=== PATIENT | male | born 1970 | race Caucasian/White ===

== ENCOUNTER 2023-10-10 10:00 | Outpatient (AMB) | payer OTHER, SELFPAY ==
--- NOTE | 2023-10-10 10:01 | MHC.OFFVIS ---
Intake Vital Signs 10/10/23 10:03 Height 5 ft 9 in Weight 215 lb BMI 31.7 BP 136/88 Blood Pressure Location Rt brachial Position Sitting Pulse 69 Pulse Source Pulse Oximeter Pulse Oximetry (%) 97 Intake Visit Reasons: ENP-Bilateral hand numbness-CONF Intake Note: patient here for numbness on hands and legs,patient also having weird sensation going through body Allergies No Known Allergies Allergy (Verified 10/10/23 10:04) Medication List - Last Reconciled 10/10/23 by TJ Harrington atorvastatin 40 mg PO DAILY empagliflozin (Jardiance) 25 mg PO DAILY glipizide 5 mg PO BID lisinopril-hydrochlorothiazide 20-25 mg 1 tab PO DAILY pioglitazone 30 mg PO DAILY HPI HPI Comments History of Present Illness Details Right-handed 53-yr-old male presents for neurological evaluation of: Bilateral hand numbness. Pt reports he started having numbness, tingling, cramps in distal bilateral 1st and 2nd-4th fingers, and bilateral toes 1st-5th. This is worse during the day when he is using his hands. 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 This started a few months ago. He states his hands are weaker. He can picker tender a cup or even something that weighs more like a gallon of milk, but sometimes he just drops things w/o notice. Patient endorses: Diagnosed w/ diabetes 2 yrs ago- states not well-controlled. Last HgA1C 8%. Has routine eye exams- was given glasses for reading. Arthritis. Non-radiating neck pain/tightness Non-radiating chronic low back pain d/t disc dz- f/b PS&S. Headaches- pressure pain in the occipital region a/w nausea, photophobia/phonophobia, vertigo, can last all day w/o Tx, once a week, uses Tylenol 4 tabs w/ effect. H/o prolonged vertigo- had vestibular tx which helped. Sleep difficulties: snoring, unrefreshing sleep, fatigue. Now in the last few weeks, he has started having a creepy crawling sensation over his entire body, when laying down in bed, or even now when sitting in the chair. [facility] Medical History (Updated 10/10/23 @ 18:56 by Lilli Patel, AURICULAR DETOXIFICATION SPECIALIST) Vertigo Mixed hyperlipidemia Family History (Updated 10/10/23 @ 10:05 by CASSY Voss) Mother Diabetes Heart disease Brother Diabetes Heart disease Social History (Updated 10/10/23 @ 10:05 by CASSY Voss) Alcohol intake: current Comment: socially Patient Tobacco Use Status: Never used Tobacco Review of Systems Const All systems reviewed & are unremarkable except as noted in HPI and below Physical Exam Vital Signs: Last Vital Signs Pulse 69 10/10/23 10:03 BP 136/88 10/10/23 10:03 Pulse Ox 97 10/10/23 10:03 BMI result Body Mass Index 31.7 Const General: cooperative and no acute distress Orientation/consciousness: patient oriented x3 HEENT Head: Yes normocephalic Resp Effort & Inspection: normal respiratory effort and able to speak in complete sentences Neuro Other: Bilateral distal fingertip- vibration, sharp sensation- perceived but altered sensation Bilateral distal fingertip- vibration, sharp sensation- perceived but altered sensation. Position sensation- intact. PP 2+. No edemea, no discoloration. MS 5/5 throughout, w/ exception of Bilateral hand grasps- decreased, symmetric. General: patient oriented x3, CN's II-XI intact bilaterally (w/ exception of left facial asymmetry, left decreased palpebral fissure) and deep tendon reflexes 2+ bilaterally Gait exam (Neuro): Normal gait present Motor exam (neuro): 5/5 motor strength present throughout Psych Appearance: grossly normal Mental Status: mental status grossly normal Speech and movement: Normal speech and movement present Affect: normal affect Attitude: cooperative Thought process: Normal thought process present Thought content: Normal thought content present Insight: Good insight present (Psych) Assessment & Plan Assessment & Plan (1) Paresthesia: Code(s): R20.2 - Paresthesia of skin (2) Snoring: Code(s): R06.83 - Snoring (3) Fatigue: Code(s): R53.83 - Other fatigue (4) Sleep difficulties: Code(s): G47.9 - Sleep disorder, unspecified (5) Migraine without aura: Code(s): G43.009 - Migraine without aura, not intractable, without status migrainosus (6) Muscle cramps: Code(s): R25.2 - Cramp and spasm Plan Patient advised to undergo: BUE and BLE EMG/NCS. Check labs for common etiologies of paresthesias, cramps, creepy crawly sensation. Home sleep study to assess for sleep apnea, which if present may be contributing to poorly controlled diabetes. Upon review of above, we will consider nutritional supplement and possibly gabapentin. Monitor migraine. Patient seen in collaboration with Dr. Edmond Orders: Orders Vitamin B12 and Folate Today E11.9 - Type 2 diabetes mellitus without complications, G43.009 - Migraine without aura, not intractable, without status migrainosus, I10 - Essential (primary) hypertension, R20.2 - Paresthesia of skin, R25.2 - Cramp and spasm IRON PROFILE Today E11.9 - Type 2 diabetes mellitus without complications, G43.009 - Migraine without aura, not intractable, without status migrainosus, I10 - Essential (primary) hypertension, R20.2 - Paresthesia of skin, R25.2 - Cramp and spasm Comprehensive Met. Panel Today E11.9 - Type 2 diabetes mellitus without complications, G43.009 - Migraine without aura, not intractable, without status migrainosus, I10 - Essential (primary) hypertension, R20.2 - Paresthesia of skin, R25.2 - Cramp and spasm Creatine Kinase Total Today E11.9 - Type 2 diabetes mellitus without complications, G43.009 - Migraine without aura, not intractable, without status migrainosus, I10 - Essential (primary) hypertension, R20.2 - Paresthesia of skin, R25.2 - Cramp and spasm Magnesium Today E11.9 - Type 2 diabetes mellitus without complications, G43.009 - Migraine without aura, not intractable, without status migrainosus, I10 - Essential (primary) hypertension, R20.2 - Paresthesia of skin, R25.2 - Cramp and spasm NE electromyogram (EMG) Today E11.9 - Type 2 diabetes mellitus without complications, I10 - Essential (primary) hypertension, R20.2 - Paresthesia of skin, R25.2 - Cramp and spasm NE nerve conduction velocity Today E11.9 - Type 2 diabetes mellitus without complications, I10 - Essential (primary) hypertension, R20.2 - Paresthesia of skin, R25.2 - Cramp and spasm JORGE Reflex Titer and Pattern Today E11.9 - Type 2 diabetes mellitus without complications, G43.009 - Migraine without aura, not intractable, without status migrainosus, I10 - Essential (primary) hypertension, R20.2 - Paresthesia of skin, R25.2 - Cramp and spasm Ferritin Today E11.9 - Type 2 diabetes mellitus without complications, G43.009 - Migraine without aura, not intractable, without status migrainosus, I10 - Essential (primary) hypertension, R20.2 - Paresthesia of skin, R25.2 - Cramp and spasm TSH reflex Free T4 Today E11.9 - Type 2 diabetes mellitus without complications, G43.009 - Migraine without aura, not intractable, without status migrainosus, I10 - Essential (primary) hypertension, R20.2 - Paresthesia of skin, R25.2 - Cramp and spasm Hemoglobin A1c Today E11.9 - Type 2 diabetes mellitus without complications, G43.009 - Migraine without aura, not intractable, without status migrainosus, I10 - Essential (primary) hypertension, R20.2 - Paresthesia of skin, R25.2 - Cramp and spasm Complete Blood Count Auto Diff Today E11.9 - Type 2 diabetes mellitus without complications, G43.009 - Migraine without aura, not intractable, without status migrainosus, I10 - Essential (primary) hypertension, R20.2 - Paresthesia of skin, R25.2 - Cramp and spasm CRP High Sensitivity Today E11.9 - Type 2 diabetes mellitus without complications, G43.009 - Migraine without aura, not intractable, without status migrainosus, I10 - Essential (primary) hypertension, R20.2 - Paresthesia of skin, R25.2 - Cramp and spasm Rheumatoid Factor Today E11.9 - Type 2 diabetes mellitus without complications, G43.009 - Migraine without aura, not intractable, without status migrainosus, I10 - Essential (primary) hypertension, R20.2 - Paresthesia of skin, R25.2 - Cramp and spasm RT home sleep study Today G47.9 - Sleep disorder, unspecified, R06.83 - Snoring, R53.83 - Other fatigue Coding Level of Care Code New Pt Level 4 (16060) Diagnoses Paresthesia R20.2 Snoring R06.83 Fatigue R53.83 Sleep difficulties G47.9 Migraine without aura G43.009 Muscle cramps R25.2
[2023-10-10 10:03] VITALS: BP 136/88; PULSE 69; O2SAT 97; BMI 31.7
== END 2023-10-10 11:15 | disposition home or self-care (01) ==
PROVIDERS: PCP Physician Assistant Medical; Visit Provider Nurse Practitioner Family
DX: R20.2 Paresthesia of skin (principal); R06.83 Snoring; R53.83 Other fatigue; G47.9 Sleep disorder, unspecified; G43.009 Migraine without aura, not intractable, without status migrainosus; R25.2 Cramp and spasm
CPT/HCPCS: 99204

== ENCOUNTER → 2023-10-10 10:00 | Outpatient (BNVA) | payer OTHER, SELFPAY | PROVIDERS: PCP Physician Assistant Medical; Visit Provider Nurse Practitioner Family | DX: R20.2 Paresthesia of skin (principal); R06.83 Snoring; R53.83 Other fatigue; R25.2 Cramp and spasm; G47.9 Sleep disorder, unspecified; G43.009 Migraine without aura, not intractable, without status migrainosus | CPT/HCPCS: 99202 ==

== ENCOUNTER 2023-10-10 11:28 | Outpatient (REF) | payer OTHER, SELFPAY ==
[2023-10-10 17:37] LABS: MANUAL DIFF FLAG NO
[2023-10-10 18:06] LABS: Hemoglobin 17.7 g/dl (14.0-18.0); Imm Gran Abs Auto 0.01 X10*3/uL (0.00-0.03); Imm Gran Pct Auto 0.1 % (0.0-0.4); Mean Corpuscular HGB Conc 34.6 g/dl (31.0-36.0); SCAN SMEAR FLAG 1
[2023-10-10 18:08] LABS: Basophils Absolute Auto 0.1 X10*3/uL (0.0-0.2); Basophils Percent Auto 0.8 % (0-2); Eosinophils Absolute Auto 0.1 X10*3/uL (0.0-0.4); Eosinophils Percent Auto 1.1 % (0-4); Hematocrit 51.2 % (42.0-52.0); Lymphocytes Percent Auto 26.1 % (20-40); Mean Corpuscular Hemoglobin 28.5 pg (27.0-33.0); Mean Corpuscular Volume 82.4 fL (80.0-98.0); Monocytes Absolute Auto 0.4 X10*3/uL (0.1-1.2); Monocytes Percent Auto 5.3 % (2-11); Neutrophils Absolute Auto 5.1 x10*3/uL (2.0-8.3); Neutrophils Percent Auto 66.6 % (45-73); Platelet Count 135 X10*3/uL (160-400); Red Blood Count 6.21 X10*6/uL (4.60-5.80); Red Cell Distribution Width 16.6 % (11.0-16.0); White Blood Count 7.6 X10*3/uL (4.8-10.8)
[2023-10-10 18:12] LABS: PLT ABN DIST 1
[2023-10-10 18:13] LABS: Estimated Average Glucose 192 mg/dL; Hemoglobin A1c % 8.3 % (<6.0)
[2023-10-10 18:30] LABS: Rheumatoid Factor < 13.0 IU/mL (<15.0)
[2023-10-10 18:59] LABS: Folate 11.4 ng/mL (> or = 4.0); Vitamin B12 442 pg/mL (200-900)
[2023-10-10 19:14] LABS: Alanine Aminotransferase 36 U/L (0-40); Albumin Level 4.8 g/dL (3.5-5.0); Alkaline Phosphatase 87 U/L (39-117); Anion Gap 12 (12-20); Aspartate Amino Transferase 25 U/L (5-37); Bilirubin Total 1.2 mg/dL (0.0-1.0); Blood Urea Nitrogen 15 mg/dL (9-16); Calcium 9.8 mg/dL (8.4-10.2); Carbon Dioxide 27 mmol/L (22-29); Chloride 109 mmol/L (96-108); Estimated Glomerular Filt Rate > 60; Glucose Random 180 mg/dL (60-115); Iron 77 mcg/dL (45-160); Magnesium 2.3 mg/dL (1.6-2.6); Percent Iron Saturation 26 % (15-50); Potassium 4.6 mmol/L (3.3-5.1); Sodium 143 mmol/L (135-145); Total Iron Binding Capacity 300 mcg/dL (228-428); Unsaturated Iron Binding 223 ug/dL
[2023-10-10 19:28] LABS: Ferritin 175 ng/mL (20-250); TSH reflex Free T4 0.85 uIU/mL (0.32-4.0)
[2023-10-12 13:13] LABS: CRP High Sensitivity 3.4 mg/L
[2023-10-16 12:53] LABS: Anti Nuclear Antibody Screen NEGATIVE (NEGATIVE)
== END 2023-10-10 11:29 | disposition home or self-care (01) ==
LOC: HO.HKASLDS 11:28
PROVIDERS: Visit Provider Nurse Practitioner Family
DX: R20.2 Paresthesia of skin (principal); I10 Essential (primary) hypertension; E11.9 Type 2 diabetes mellitus without complications; R25.2 Cramp and spasm; G43.009 Migraine without aura, not intractable, without status migrainosus
CPT/HCPCS: 36415; 80053; 82550; 82607; 82728; 82746; 83036; 83540; 83735; 84443; 85025; 86038; 86141; 86431

== ENCOUNTER 2023-10-25 15:32 | Outpatient (REF) | payer OTHER, SELFPAY ==
--- NOTE | 2023-10-25 15:37 | EMG_ITS ---
Chief complaint: 2-3 months of bilateral finger numbness, numbness in toe pads. Some trapezius pain. Reason for referral: Evaluate for neuropathy Referred by: Lilli Patel NP Procedure done: Bilateral upper extremities, bilateral lower extremities NCS/EMG Precautions and/or limitations: None The limb temperature was monitored continuously and remained between 32-36 degrees C during the performance of the NCS. Nerve Conduction Studies Anti Sensory Summary Table ?Stim Site NR Onset (ms) Norm Onset (ms) Peak (ms) Norm Peak (ms) O-P Amp (?V) Norm O-P Amp Site1 Site2 Delta-0 (ms) Dist (cm) Romario (m/s) Norm Romario (m/s) Left Median Anti Sensory (2nd Digit) Wrist ? 3.0 3.9 <3.6 28.4 >10 Wrist 2nd Digit 3.0 14.0 47 Right Median Anti Sensory (2nd Digit) Wrist ? 3.2 4.2 <3.6 21.3 >10 Wrist 2nd Digit 3.2 14.0 44 Left Sural Anti Sensory (Lat Mall) Calf NR <4.0 >5.0 Calf Lat Mall 14.0 Right Sural Anti Sensory (Lat Mall) Calf ? 1.2 2.2 <4.0 3.6 >5.0 Calf Lat Mall 1.2 14.0 117 Left Ulnar Anti Sensory (5th Digit) Wrist ? 2.6 3.3 <3.7 33.3 >15.0 Wrist 5th Digit 2.6 14.0 54 Right Ulnar Anti Sensory (5th Digit) Wrist ? 2.6 3.3 <3.7 15.1 >15.0 Wrist 5th Digit 2.6 14.0 54 Motor Summary Table ?Stim Site NR Onset (ms) Norm Onset (ms) O-P Amp (mV) Norm O-P Amp iAmp (mV) Amp (1st) (%) Site1 Site2 Delta-0 (ms) Dist (cm) Romario (m/s) Norm Romario (m/s) Left Median Motor (Abd Poll Brev) Wrist ? 5.4 <3.9 4.7 >4.5 5.6 100.0 Elbow Wrist 4.7 23.5 50 >45 Elbow ? 10.1 3.8 4.6 80.9 Right Median Motor (Abd Poll Brev) Wrist ? 4.8 <3.9 11.8 >4.5 13.8 100.0 Elbow Wrist 4.8 23.0 48 >45 Elbow ? 9.6 10.0 11.8 84.7 Right Peroneal Motor (Ext Dig Brev) Ankle ? 3.7 <4.0 6.6 >2.5 8.9 100.0 Ankle Ext Dig Brev 3.7 0.0 B Fib ? 11.6 7.4 9.5 112.1 B Fib Ankle 7.9 34.0 43 >40 Poplt ? 12.8 7.4 9.5 112.1 Poplt B Fib 1.2 6.0 50 >40 Left Tibial Motor (Abd Mejia Brev) Ankle ? 3.9 <5 14.8 >2.5 19.6 100.0 Ankle Abd Mejia Brev 3.9 0.0 Knee ? 14.6 7.5 9.5 50.7 Knee Ankle 10.7 43.0 40 >40 Right Tibial Motor (Abd Mejia Brev) Ankle ? 3.4 <5 14.2 >2.5 20.5 100.0 Ankle Abd Mejia Brev 3.4 0.0 Knee ? 12.9 11.2 16.3 78.9 Knee Ankle 9.5 43.0 45 >40 Left Ulnar Motor (Abd Dig Minimi) Wrist ? 2.9 <3.0 7.9 >5 9.3 100.0 B Elbow Wrist 4.4 23.5 53 >45 B Elbow ? 7.3 7.6 9.2 96.2 A Elbow B Elbow 2.0 10.0 50 >45 A Elbow ? 9.3 7.9 9.7 100.0 Right Ulnar Motor (Abd Dig Minimi) Wrist ? 2.8 <3.0 9.6 >5 13.8 100.0 B Elbow Wrist 4.9 22.0 45 >45 B Elbow ? 7.7 9.6 13.2 100.0 A Elbow B Elbow 1.8 10.0 56 >45 A Elbow ? 9.5 9.3 13.0 96.9 EMG ?Side Muscle Nerve Root Ins Act Fibs Psw Amp Dur Poly Recrt Int Pat Comment Right 1stDorInt Ulnar C8-T1 Nml Nml Nml Nml Nml 0 Nml Complete Right FlexCarRad Median C6-7 Nml Nml Nml Nml Nml 0 Nml Complete Right Biceps Musculocut C5-6 Nml Nml Nml Nml Nml 0 Nml Complete Right Triceps Radial C6-7-8 Nml Nml Nml Nml Nml 0 Nml Complete Right Deltoid Axillary C5-6 Nml Nml Nml Nml Nml 0 Nml Complete Left 1stDorInt Ulnar C8-T1 Nml Nml Nml Nml Nml 0 Nml Complete Left FlexCarRad Median C6-7 Nml Nml Nml Nml Nml 0 Nml Complete Left Biceps Musculocut C5-6 Nml Nml Nml Nml Nml 0 Nml Complete Left Triceps Radial C6-7-8 Nml Nml Nml Nml Nml 0 Nml Complete Left Deltoid Axillary C5-6 Nml Nml Nml Nml Nml 0 Nml Complete Right AbdHallucis MedPlantar S1-2 Nml Nml Nml Nml Nml 0 Nml Complete Right AntTibialis Dp Br Peron L4-5 Nml Nml Nml Nml Nml 0 Nml Complete Right PostTibialis Tibial L5, S1 Nml Nml Nml Nml Nml 0 Nml Complete Right MedGastroc Tibial S1-2 Nml Nml Nml Nml Nml 0 Nml Complete Right VastusMed Femoral L2-4 Nml Nml Nml Nml Nml 0 Nml Complete Left AbdHallucis MedPlantar S1-2 Nml Nml Nml Nml Nml 0 Nml Complete Left AntTibialis Dp Br Peron L4-5 Nml Nml Nml Nml Nml 0 Nml Complete Left PostTibialis Tibial L5, S1 Nml Nml Nml Nml Nml 0 Nml Complete Left MedGastroc Tibial S1-2 Nml Nml Nml Nml Nml 0 Nml Complete Left VastusMed Femoral L2-4 Nml Nml Nml Nml Nml 0 Nml Complete FINDINGS: Bilateral median motor nerves showed prolonged distal latency, normal amplitude and normal conduction velocity. Bilateral median sensory nerves prolonged peak latency. Right sural nerve no response. Left sural nerve showed very small amplitude but normal peak latencies. All other nerves tested were within normal. Concentric needle EMG was performed in selected muscles of the bilateral upper extremities and lower extremities. Study did not reveal signs of electric abnormalities as shown in the table below. IMPRESSION: 1. This is an abnormal study. 2. There is electrodiagnostic evidence for bilateral moderate-severe median neuropathy at the wrist, consistent with carpal tunnel syndrome. 3. There is no electrodiagnostic evidence for ulnar neuropathy, brachial plexopathy, or cervical radiculopathy. 4. There is electrodiagnostic findings suggestive of beginning peripheral neuropathy. 3. There is no electrodiagnostic evidence for peroneal neuropathy, tibial neuropathy. lumbosacral plexopathy, or lumbar radiculopathy. Thank you for your kind referral. Raiza Travis MD, EBER Board Certified, [place] Board of Physical Medicine and Rehabilitation (ABPMR) Board Certified, [place] Board of Electrodiagnostic Medicine (ABEM) CODIN 08301 x 4 MTDD
== END 2023-10-25 15:33 | disposition home or self-care (01) ==
LOC: HO.NEURO 15:32
PROVIDERS: Visit Provider Nurse Practitioner Family
DX: R20.0 Anesthesia of skin (principal); R25.2 Cramp and spasm; E11.9 Type 2 diabetes mellitus without complications; I10 Essential (primary) hypertension
CPT/HCPCS: 95886; 95913

== ENCOUNTER → 2023-10-25 15:37 | Outpatient (BNV) | payer OTHER, SELFPAY | PROVIDERS: Visit Provider Physical Medicine & Rehabilitation | DX: G56.03 Carpal tunnel syndrome, bilateral upper limbs (principal); G56.13 Other lesions of median nerve, bilateral upper limbs; G62.9 Polyneuropathy, unspecified | CPT/HCPCS: 95886; 95913 ==

== ENCOUNTER → 2023-11-15 11:11 | Outpatient (REF) | payer OTHER, SELFPAY | LOC: HO.SL 11:11 | PROVIDERS: Visit Provider Nurse Practitioner Family | DX: G47.33 Obstructive sleep apnea (adult) (pediatric) (principal); R06.83 Snoring; R53.83 Other fatigue; G47.9 Sleep disorder, unspecified | CPT/HCPCS: 95806 ==

== ENCOUNTER → 2023-11-15 11:19 | Outpatient (BNV) | payer OTHER, SELFPAY | PROVIDERS: Visit Provider Internal Medicine | DX: G47.33 Obstructive sleep apnea (adult) (pediatric) (principal) | CPT/HCPCS: 95806 ==

== ENCOUNTER 2024-04-18 08:02 | Outpatient (AMB) | payer OTHER, SELFPAY ==
[2024-04-18 08:20] VITALS: BMI 31.7
--- NOTE | 2024-04-18 08:20 | MHC.OFFVIS ---
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 Pt states he has had this pain for about 3-4 months. He states he has neck pressure that radiates to his shoulders. He has been taking Ibuprofen 800 mg with little to no relief. He describes the pain as pin and needles. Denies prior surgeries to his back or neck. He states he was given an injection on his back at [facility], a few years ago. He is not sure what the name of the medication is. 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 Results below. Here today neck pain which he says is a separate issue, 3 months ago. Denies inciting injuries. Feels pressure, going to both shoulders. Feels like stuck needle in the shoulders. Can't sleep at night. Can go down arms. 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 Difficult for him at work due to having to need heavy stuff. Xray csp[facility] done at [facility] reported osteophytes but disc spaces unremarkable. Treatment done so far: NSAIDs PFSH Medical History (Updated 04/18/24 @ 09:00 by Raiza Travis MD) Vertigo Mixed hyperlipidemia Family History (Updated 10/10/23 @ 10:05 by CASSY Voss) Mother Diabetes Heart disease Brother Diabetes Heart disease Social History (Updated 10/10/23 @ 10:05 by CASSY Voss) Alcohol intake: current Comment: socially Patient Tobacco Use Status: Never used Tobacco Review of Systems Const All systems reviewed & are unremarkable except as noted in HPI and below Physical Exam Vital Signs: BMI result Body Mass Index 31.7 Constitutional: Patient appears to be in no acute distress, well nourished and well developed. Patient was appropriately conversant and oriented. Good historian. MSK: Inspection reveals appropriate head and neck positioning. No tenderness over cervical spinous processes or paraspinals. Tender on upper trapezius and subacromial areas. Cervical ROM was full. Spurling's sign negative. Bilateral shoulder, elbow and wrist ROM WNL. No ligamentous laxity or crepitance. No increased effusion. Positive bilateral Mitchell sign. Empty can sign equivocal. Negative speed's test. Positive bilateral carpal compression. Negative Tinel sign on elbow. Strength is 5/5 in all muscle groups tested. No increased tone noted. Neurological: Neurologic examination of the upper and lower extremities was nonfocal with intact sensation, muscle stretch reflexes and without focal motor deficits . De Dios?s negative bilaterally. Babinski was down going bilaterally. Clonus was negative. Gait is non-antalgic without loss of balance. Results Reviewed Results Reviewed: Cervical x-ray report noted. 10/24/13 EMG by me IMPRESSION: 1. This is an abnormal study. 2. There is electrodiagnostic evidence for bilateral moderate-severe median neuropathy at the wrist, consistent with carpal tunnel syndrome. 3. There is no electrodiagnostic evidence for ulnar neuropathy, brachial plexopathy, or cervical radiculopathy. 4. There is electrodiagnostic findings suggestive of beginning peripheral neuropathy. 3. There is no electrodiagnostic evidence for peroneal neuropathy, tibial neuropathy. lumbosacral plexopathy, or lumbar radiculopathy. I reviewed records from the following: [facility] Seen by Neurology for fatigue and hand numbness. Assessment & Plan Assessment & Plan (1) Shoulder pain: Code(s): M25.519 - Pain in unspecified shoulder Category: Medical Qualifiers: Chronicity: acute Laterality: bilateral Qualified Code(s): M25.511 - Pain in right shoulder; M25.512 - Pain in left shoulder (2) Myofascial pain: Code(s): M79.18 - Myalgia, other site Category: Medical (3) Carpal tunnel syndrome on both sides: Code(s): G56.03 - Carpal tunnel syndrome, bilateral upper limbs Category: Medical Plan Most of his pain coming from shoulder and trapezius rather than cervical spine. No signs of cervical radiculopathy or myelopathy. We will get shoulder x-rays today. Referring to physical therapy to work on myofascial pain, especially upper trapezius. We can trial Flexeril 5 mg before sleeping. He works at night so he can take this when he gets home. Watch out for over-sedation. Discussed other side effects. As for Carpal Tunnel Syndrome seen on EMG, referring to Dr. Olvera/hand surgery. Assessment and plan discussed with patient, and patient was agreeable. All questions were answered thoroughly. Follow up 4-6 weeks. Raiza Travis MD, EBER Board Certified, [place] Board of Physical Medicine and Rehabilitation (ABPMR) Board Certified, [place] Board of Electrodiagnostic Medicine (ABEM) Orders: Orders PT Evaluation and Treatment Today G56.03 - Carpal tunnel syndrome, bilateral upper limbs, M25.519 - Pain in unspecified shoulder, M79.18 - Myalgia, other site XR shoulder LT min 2V Today G56.03 - Carpal tunnel syndrome, bilateral upper limbs, M25.512 - Pain in left shoulder, M25.519 - Pain in unspecified shoulder, M79.18 - Myalgia, other site XR shoulder RT min 2V Today G56.03 - Carpal tunnel syndrome, bilateral upper limbs, M25.519 - Pain in unspecified shoulder, M79.18 - Myalgia, other site Referrals Hand Surgery Referral G56.03 - Carpal tunnel syndrome, bilateral upper limbs Medications: New cyclobenzaprine before sleep 5 mg PO BEDTIME PRN 14 tabs 0RF muscle spasm Coding Level of Care Code Est Pt Level 4 (28645) Diagnoses Acute pain of both shoulders M25.511; M25.512 Chronicity: acute Laterality: bilateral Myofascial pain M79.18 Carpal tunnel syndrome on both sides G56.03
== END 2024-04-18 08:56 | disposition home or self-care (01) ==
PROVIDERS: Visit Provider Physical Medicine & Rehabilitation
DX: M25.511 Pain in right shoulder (principal); M25.512 Pain in left shoulder; M79.18 Myalgia, other site; G56.03 Carpal tunnel syndrome, bilateral upper limbs
CPT/HCPCS: 99214

== ENCOUNTER 2024-04-18 08:02 | Outpatient (REF) | payer OTHER, SELFPAY | END 2024-04-18 08:03 | disposition home or self-care (01) | LOC: HO.HOSX 08:02 | PROVIDERS: Visit Provider Physical Medicine & Rehabilitation | DX: M25.512 Pain in left shoulder (principal); G56.03 Carpal tunnel syndrome, bilateral upper limbs; M79.18 Myalgia, other site; M25.519 Pain in unspecified shoulder; M25.511 Pain in right shoulder | CPT/HCPCS: 73030; 99212 ==

== ENCOUNTER 2024-05-20 10:50 | Outpatient (AMB) | payer OTHER, SELFPAY ==
--- NOTE | 2024-05-20 11:07 | MHC.OFFVIS ---
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 Denies finger locking. Has not tried anything. Patient states the numbness is bothersome at night. Denies any prior injuries or surgeries to the hands. 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 He complains of numbness in the median nerve distribution bilaterally, R>L. With dense numbness, worse at night. Normal sensation to his small fingers. He says he has difficulty & weakness with gripping and holding objects. He also complains of bilateral shoulder pain, and other generalized pain. He says his bilateral shoulder pain is more bothersome right now, and he is in PT for this. He is a Diabetic, his most recent HgA1c was 8.3% on 10/10/23. [facility] Medical History (Updated 04/18/24 @ 09:00 by Raiza Travis MD) Vertigo Mixed hyperlipidemia Family History (Updated 10/10/23 @ 10:05 by Val Pan Chad) Mother Diabetes Heart disease Brother Diabetes Heart disease Social History (Updated 05/20/24 @ 11:29 by Theo Noonan Chad) Alcohol intake: current Comment: socially Patient Tobacco Use Status: Never used Tobacco Current occupation: rt handed Review of Systems Const All systems reviewed & are unremarkable except as noted in HPI and below Physical Exam Vital Signs: BMI result Body Mass Index 31.7 Const General: cooperative, healthy appearing and no acute distress Orientation/consciousness: patient oriented x3 HEENT Head: Yes normocephalic and Yes atraumatic Eyes EOM: EOMs intact bilaterally Resp Effort & Inspection: normal respiratory effort and able to speak in complete sentences Cardio Jugular venous distension: no JVD Skin General skin exam: turgor normal Rashes: no rashes Neuro General: patient oriented x3 Extrem Other: Evaluation of Bilateral Upper Extremity: The patient is alert, oriented, and in no acute distress Neuro: Dense numbness in the median nerve distribution bilaterally. Normal sensation in the ulnar nerve distribution, bilaterally. No thenar or intrinsic wasting Good APB muscle belly firing and good finger cross Vascular: Cap refill brisk ROM: He can make a fist and extend all his digits Skin: No lacerations or abrasions. General: No Ecchymosis. No Erythema or evidence of infection. Nerve Conduction Study: IMPRESSION: 1. This is an abnormal study. 2. There is electrodiagnostic evidence for bilateral moderate-severe median neuropathy at the wrist, consistent with carpal tunnel syndrome. 3. There is no electrodiagnostic evidence for ulnar neuropathy, brachial plexopathy, or cervical radiculopathy. Raiza Travis MD, EBER 10/25/23 Psych Appearance: grossly normal Affect: normal affect Attitude: cooperative Assessment & Plan Assessment & Plan (1) Carpal tunnel syndrome on both sides: Code(s): G56.03 - Carpal tunnel syndrome, bilateral upper limbs Category: Medical (2) Diabetes: Code(s): E11.9 - Type 2 diabetes mellitus without complications Category: Medical Plan Assessment & Plan: 1. Right carpal tunnel syndrome, moderate-severe With dense numbness, worse at night This is his primary complaint today 2. Left carpal tunnel syndrome, moderate-severe With dense numbness, worse at night I educated him about this condition I discussed operative and non-operative treatment options I recommend surgery, but he is hesitant to proceed at this time. He would like to take time to consider his option while he does PT for his shoulder pain. I educated him on the risks of delaying treatment, and he expressed understanding I explained the risks of his sensation not returning, but that surgery is important to maintain muscle function and preserve any sensation possible. He expressed understanding, but still declined surgery at this time. He is a Diabetic, his most recent HgA1c was 8.3% on 10/10/23. They will need an updated HgA1c that is <8.1% in order to proceed with surgery, and they expressed understanding He will follow up prn. Please note that greater than 25 minutes was spent with this patient going over the history, evaluating the patient and radiographs, formulating possible treatment options, discussing them with the patient, and documenting the visit. Scribed for Anali Olvera MD by Willy Gaffney, medical scientist, on 05/20/24 at 11:25 AM, EST. Coding Level of Care Code New Pt Level 4 (33188) Diagnoses Carpal tunnel syndrome on both sides G56.03 Diabetes E11.9
[2024-05-20 11:28] VITALS: BMI 31.7
== END 2024-05-20 13:27 | disposition home or self-care (01) ==
PROVIDERS: Visit Provider Orthopaedic Surgery
DX: G56.03 Carpal tunnel syndrome, bilateral upper limbs (principal); E11.9 Type 2 diabetes mellitus without complications
CPT/HCPCS: 99204

== ENCOUNTER → 2024-05-20 10:50 | Outpatient (BNVA) | payer OTHER, SELFPAY | PROVIDERS: Visit Provider Orthopaedic Surgery | DX: G56.03 Carpal tunnel syndrome, bilateral upper limbs (principal); E11.9 Type 2 diabetes mellitus without complications | CPT/HCPCS: 99202 ==

== ENCOUNTER 2024-06-16 13:08 | Outpatient (RCR) | payer OTHER, SELFPAY ==
--- NOTE | 2024-05-16 14:54 | MHC.PT.EP ---
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 FUNCTIONALLY, THE Pt HAS DIFFIC SLEEPING, LIFTING, PUSHING- HIGH LEVEL ACTIVITIES/ WORK TASKS. THE Pt HAS (+) SH IMPINGEMENT SIGNS INFLUENCED BY DECR POSTURE. LIANG IS A GOOD PT CANDIDATE TO ADDRESS THE ABOVE FINDINGS AND INCREASE HIS FUNCTIONAL MOB ALENA. Frequency and Duration: The patient will be seen 2x WK x 4 WKS Short Term Goals: *DECR GERTRUDIS SH/ TRAP PAIN TO 2-3/10 *INITIATE HEP *Pt INDEP POSTURAL CORRECTION TO REDUCE SOFT TISSUE TENSION ON CERV AND POSTERIOR CHAIN *WNL AROM SH AND CERV REGION Real Estate Agent Goals: *Pt INDEP HEP AND SELF SX MGMT TECHN *Pt RESUME REG ADLs, SLEEPING, AND WORK TASKS W/O EXACERB SXS *IMPROVED SPADI (103/130) Treatment Plan: Modalities to reduce pain, spasms and effusion. Manual therapy to restore motion and function. Therapeutic exercise to improve strength and flexibility. Neuromuscular re-education for posture and balance. Therapeutic activities to return to functional activities of daily living. Electronically signed by: MORGAN CHANPT Please sign and return to therapist. Thank you for your referral.
--- NOTE | 2024-07-04 15:04 | MHC.PT.DC ---
[facility] [place] Office [place] Office [place] Office [address] Teofilo Marx [address] [phone] F: [phone] F: [phone] F: [phone] F: [phone] Physical Therapy Discharge Report Diagnosis: NECK,SHOULDER, AND TRAPEZIUS/ MYOFASCIAL PAIN Pt ALSO DX W GERTRUDIS CTS AND IS REF TO OT Date of Surgery: Date of Evaluation: 05/16/24 Date of Discharge: 07/04/24 Treatments to Date: 6 Cancellations to Date: 2 No Shows to Date: 1 Discharge Status: Improved Function Independent with HEP Patient Elected to Stop Discharge Summary: THE Pt PRESENTED AT THE LAST PT APPT NOTING HE AGGRAVATED HIS SHOULDER/ NECK AFTER SHOVELING- HE PREFERRED TO PUT PT ON HOLD ATTHIS TIME - NOTED HE HAS A F/U W MD TO DISCUSS HIS DIAGNOSTIC RESULTS; WE EDUC THE Pt RE POSTURE AND DEV A HEP ADDRESSING HIS NECK AND SH SXS. Electronically signed by: MORGAN CHAN, PT Please sign and return to therapist. Thank you for your referral.
== END 2025-01-13 07:19 | disposition home or self-care (01) ==
LOC: HO.PT 13:08
PROVIDERS: PCP Physician Assistant Medical; Visit Provider Physical Medicine & Rehabilitation
DX: G56.03 Carpal tunnel syndrome, bilateral upper limbs (principal); M79.18 Myalgia, other site; M25.519 Pain in unspecified shoulder; M54.2 Cervicalgia
CPT/HCPCS: 97110; 97140; 97162; 97535

== ENCOUNTER 2024-07-10 09:33 | Outpatient (AMB) | payer OTHER, SELFPAY ==
[2024-07-10 09:39] VITALS: BMI 31.7
--- NOTE | 2024-07-10 09:39 | A.OFFVIS_ITS ---
Vital Signs 07/10/24 09:39 Height 5 ft 9 in Weight 215 lb BMI 31.7 Intake Visit Reasons: OV-Left Shoulder Xray review Intake Note: Arpan 53 yr old male presents today for his follow up visit for his left shoulder. States he has completed P.T and feels no improvement. States he is also here to review left shoulder Xrays. Allergies No Known Allergies Allergy (Verified 07/10/24 09:44) HPI Comments Details: Patient was seen last October for EMG. Results below. He has seen hand surgery Dr. Olvera. Then saw him for neck pain which he says is a separate issue, at least few months ago. Denies inciting injuries. Feels pressure, going to both shoulders. Feels like stuck needle in the shoulders. Can't sleep at night. Can go down arms. 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 Difficult for him at work due to having to need heavy stuff. Xray cspine done at [facility] reported osteophytes but disc spaces unremarkable. He states he was given an injection on his back at [facility], a few years ago. NSAIDs prn. Thought patient was having myofascial pain trapezius area. Patient had gone to PT without relief, finished 2 weeks ago. Shoulder xrays were normal. v He still gets pain on both shoulders. Worse with abduction. Bothers him even when he sits down or when he sleeps in any position. Denies neck pain. Has hand numbnes when wrist flexion/extension, consistent with CTS. [facility] Medical History (Updated 07/10/24 @ 10:00 by Raiza Travis MD) Vertigo Mixed hyperlipidemia Family History (Updated 10/10/23 @ 10:05 by Val Pan Chad) Mother Diabetes Heart disease Brother Diabetes Heart disease Social History (Updated 05/20/24 @ 11:29 by Theo Noonan Chad) Alcohol intake: current Comment: socially Patient Tobacco Use Status: Never used Tobacco Current occupation: rt handed Physical Exam Vital Signs: BMI result Body Mass Index 31.7 Constitutional: Patient appears to be in no acute distress, well nourished and well developed. Patient was appropriately conversant and oriented. Good historian. MSK: Inspection reveals appropriate head and neck positioning. No tenderness over cervical spinous processes or paraspinals. Lumbar tenderness over trapezius or rhomboids. No scapular winging. Cervical ROM was full. Spurling's sign negative. He has pain on both shoulders with abduction, internal rotation and external rotation. Positive bilateral Mitchell sign. Empty can sign positive bilateral. Speed's test positive bilateral. Strength is 5/5 in all muscle groups tested. No increased tone noted. Neurological: Neurologic examination of the upper and lower extremities was nonfocal with intact sensation, muscle stretch reflexes and without focal motor deficits . De Dios?s negative bilaterally. Gait is non-antalgic without loss of balance. Results Reviewed Results Reviewed: Cervical x-ray report noted. 10/24/13 EMG by me IMPRESSION: 1. This is an abnormal study. 2. There is electrodiagnostic evidence for bilateral moderate-severe median neuropathy at the wrist, consistent with carpal tunnel syndrome. 3. There is no electrodiagnostic evidence for ulnar neuropathy, brachial plexopathy, or cervical radiculopathy. 4. There is electrodiagnostic findings suggestive of beginning peripheral neuropathy. 3. There is no electrodiagnostic evidence for peroneal neuropathy, tibial neuropathy. lumbosacral plexopathy, or lumbar radiculopathy. Ordering Physician: Raiza Chen Date of Service: 04/18/24 Procedure(s): XR shoulder LT min 2V Accession Number(s): [id number] cc: Raiza hCen~ EXAMINATION: XR SHOULDER LEFT 2 VIEWS CLINICAL INFORMATION: Pain in left shoulder M25.512. COMPARISON: None available TECHNIQUE: AP neutral and transscapular views of the left shoulder. FINDINGS: The bones and soft tissues are normal. No fracture. Glenohumeral and acromioclavicular alignment is anatomic with normal joint space. No abnormal soft tissue calcifications. XR/XR shoulder LT min 2V IMPRESSION: Normal left shoulder. Ordering Physician: Raiza Chen Date of Service: 04/18/24 Procedure(s): XR shoulder RT min 2V Accession Number(s): [id number] cc: Raiza Chen~ EXAMINATION: XR SHOULDER RIGHT 2 VIEWS CLINICAL INFORMATION: Pain in unspecified shoulder M25.519. COMPARISON: None available TECHNIQUE: AP neutral and transscapular views of the right shoulder. FINDINGS: The bones and soft tissues are normal. No fracture. Glenohumeral and acromioclavicular alignment is anatomic with normal joint space. No abnormal soft tissue calcifications. XR/XR shoulder RT min 2V IMPRESSION: Normal right shoulder. I reviewed records from the following: [facility] Seen by Neurology for fatigue and hand numbness. Assessment & Plan Assessment & Plan (1) Rotator cuff injury: Code(s): S46.009A - Unspecified injury of muscle(s) and tendon(s) of the rotator cuff of unspecified shoulder, initial encounter Category: Medical Qualifiers: Encounter type: initial encounter Laterality: right Qualified Code(s): S46.001A - Unspecified injury of muscle(s) and tendon(s) of the rotator cuff of right shoulder, initial encounter (2) Injury of left rotator cuff: Code(s): S46.002A - Unspecified injury of muscle(s) and tendon(s) of the rotator cuff of left shoulder, initial encounter Category: Medical Qualifiers: Encounter type: initial encounter Qualified Code(s): S46.002A - Unspecified injury of muscle(s) and tendon(s) of the rotator cuff of left shoulder, initial encounter Plan No more myofascial pain on trapezius or rhomboids from PT. no signs of cervical radiculopathy or myelopathy. Concern for rotator cuff tendinopathy or partial tear. Patient had undergone adequate conservative management including PT without improvement of condition. It would be reasonable to obtain further imaging such as MRI. An MRI would help rule out any serious condition, guide treatment and assess prognosis for recovery. Specifically ruling out rotator cuff tear. Assessment and plan discussed with patient, and patient was agreeable. All questions were answered thoroughly. Follow up after MRI. Raiza Travis MD, EBER Board Certified, [place] [employer] and [employer] (ABPMR) Board Certified, [place] [employer] Electro[employer] (ABEM) Orders: Orders MR shoulder LT wo con Today S46.002A - Unspecified injury of muscle(s) and tendon(s) of the rotator cuff of left shoulder, initial encounter MR shoulder RT wo con Today S46.001A - Unspecified injury of muscle(s) and tendon(s) of the rotator cuff of right shoulder, initial encounter Coding Level of Care Code Est Pt Level 4 (80710) Diagnoses Injury of right rotator cuff, initial encounter S46.001A Encounter type: initial encounter Laterality: right Injury of left rotator cuff, initial encounter S46.002A Encounter type: initial encounter
== END 2024-07-10 09:58 | disposition home or self-care (01) ==
PROVIDERS: PCP Physician Assistant Medical; Visit Provider Physical Medicine & Rehabilitation
DX: S46.001A Unspecified injury of muscle(s) and tendon(s) of the rotator cuff of right shoulder, initial encounter (principal); S46.002A Unspecified injury of muscle(s) and tendon(s) of the rotator cuff of left shoulder, initial encounter
CPT/HCPCS: 99214

== ENCOUNTER → 2024-07-10 09:33 | Outpatient (BNVA) | payer OTHER, SELFPAY | PROVIDERS: PCP Physician Assistant Medical; Visit Provider Physical Medicine & Rehabilitation | DX: S46.001D Unspecified injury of muscle(s) and tendon(s) of the rotator cuff of right shoulder, subsequent encounter (principal); S46.002D Unspecified injury of muscle(s) and tendon(s) of the rotator cuff of left shoulder, subsequent encounter | CPT/HCPCS: 99212 ==

== ENCOUNTER 2024-08-03 10:52 | Outpatient (REF) | payer OTHER, SELFPAY | END 2024-08-03 10:53 | disposition home or self-care (01) | LOC: HO.MRI 10:52 | PROVIDERS: PCP Physician Assistant Medical; Visit Provider Physical Medicine & Rehabilitation | DX: S46.002A Unspecified injury of muscle(s) and tendon(s) of the rotator cuff of left shoulder, initial encounter (principal); S46.001A Unspecified injury of muscle(s) and tendon(s) of the rotator cuff of right shoulder, initial encounter | CPT/HCPCS: 73221 ==

== ENCOUNTER → 2024-08-03 11:03 | Outpatient (BNV) | payer OTHER, SELFPAY | PROVIDERS: PCP Physician Assistant Medical; Visit Provider Radiology Diagnostic Radiology | DX: M25.511 Pain in right shoulder (principal); M25.512 Pain in left shoulder | CPT/HCPCS: 73221 ==

== ENCOUNTER 2024-09-05 11:09 | Outpatient (AMB) | payer OTHER, SELFPAY ==
[2024-09-05 11:17] VITALS: BMI 31.7
--- NOTE | 2024-09-05 11:17 | MHC.OFFVIS ---
Vital Signs 09/05/24 11:17 Height 5 ft 9 in Weight 215 lb BMI 31.7 Intake Visit Reasons: Bilat shoulder MRI Review Intake Note: Arpan 54 yr old male presents today for bilateral shoulder MRI review. 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 Results below. He has seen hand surgery Dr. Olvera. Then saw him for neck pain which he says is a separate issue, at least few months ago. Denies inciting injuries. Feels pressure, going to both shoulders. Feels like stuck needle in the shoulders. Can't sleep at night. Can go down arms. 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 Difficult for him at work due to having to need heavy stuff. Xray csp[facility] done at [facility] reported osteophytes but disc spaces unremarkable. He states he was given an injection on his back at [facility], a few years ago. NSAIDs prn. Thought patient was having myofascial pain trapezius area. Patient had gone to PT without relief. Shoulder xrays were normal. However patient gradually developed more limitation on shoulder ROM. Worse pain with abduction. Bothers him even when he sits down or when he sleeps in any position. Denies neck pain. Has hand numbnes when wrist flexion/extension, consistent with CTS. Bilateral shoulder MRI done, discussed today. [facility] Medical History (Updated 09/05/24 @ 11:49 by Raiza Travis MD) Vertigo Mixed hyperlipidemia Family History (Updated 10/10/23 @ 10:05 by Val Pan Chad) Mother Diabetes Heart disease Brother Diabetes Heart disease Social History Alcohol intake: current Comment: socially Patient Tobacco Use Status: Never used Tobacco Current occupation: rt handed Physical Exam Vital Signs: BMI result Body Mass Index 31.7 Constitutional: Patient appears to be in no acute distress, well nourished and well developed. Patient was appropriately conversant and oriented. MSK: Inspection reveals appropriate head and neck positioning. No tenderness over cervical spinous processes or paraspinals. No scapular winging. Cervical ROM was full. Spurling's sign negative. He has pain on both shoulders with abduction, internal rotation and external rotation, limiting ROM. Positive bilateral Mitchell sign. Empty can sign positive bilateral. Speed's test positive bilateral. Right worse than left. Strength is 5/5 in all muscle groups tested despite pain. No increased tone noted. Neurological: Neurologic examination of the upper and lower extremities was nonfocal with intact sensation, muscle stretch reflexes and without focal motor deficits . De Dios?s negative bilaterally. Gait is non-antalgic without loss of balance. Results Reviewed Results Reviewed: Ordering Physician: Raiza Chen Date of Service: 08/03/24 Procedure(s): MR shoulder LT wo con Accession Number(s): [id number] cc: Lasha Ramos PA-C; Raiza Chen~ EXAMINATION: MR SHOULDER, LEFT CLINICAL INFORMATION: Bilateral shoulder pain, 5 months duration intermittently. Decreased range of motion. Numbness in hands. COMPARISON: No prior. Left shoulder radiographs 04/18/2024. TECHNIQUE: Multiplanar multisequence MR imaging of the left shoulder was done without IV contrast. Examination performed on a 1.5 Nikkie Siemens unit utilizing standard sequences. FINDINGS: Study somewhat suboptimal secondary to internal rotation of the humerus. Rotator Cuff and Biceps Tendon: Supraspinatus: Rim rent type partial insertional tear of the medial footplate insertion, measuring approximately 5 mm x 19 mm. This extends into the infraspinatus footplate insertion. Tendon is otherwise intact with mild changes of tendinopathy. Normal muscle belly. Infraspinatus: As above. There is an associated increase region of interstitial signal at the myotendinous junction, possibly extending to the undersurface of the mid tendon, likely representing partial undersurface tearing/fraying (series 7, images 19-22). Normal muscle belly. Subscapularis: There is a focal partial undersurface tear of the superior tendon, posterior insertional aspect, measuring approximately 30% tendon width (series 7, image 17). There is associated mild tendinopathy of the distal tendon. Normal muscle belly. Teres Minor: Appears intact and normal in signal. Normal muscle belly. Biceps Long Head: Normally located within the groove. Tendon appears intact and normal in signal. Not well assessed tendon in the rotator interval. AC Joint and Acromiohumeral Arch: Mild to moderate hypertrophic arthropathy of the AC joint with predominantly mild superior surface spurring, and minimal undersurface spurring. Mild periarticular edema. No supraspinatus outlet stenosis. Laterally downsloping acromion without spurring. Glenohumeral Joint and Labrum: Mild thinning of the articular cartilage with superficial eburnation. No full-thickness defect. No subchondral bone plate edema. There is mild spurring of the inferior glenoid, similar to the contralateral side. Difficult to assess the labrum, although no discrete labral tear is visualized. Osseous Structures: No additional regions of bone marrow signal abnormality. Spino-glenoid Notch: Normal. Quadrilateral Space: Normal. Other: Mildly increased signal of the subscapularis/subdeltoid bursa, consistent with mild bursitis. The glenohumeral ligaments appear normal. MR/MR shoulder LT wo con IMPRESSION: 1. Mildly limited exam due to suboptimal positioning/internal rotation of the humerus. 2. Rim rent type tearing of the medial footplate insertion of the supraspinatus and infraspinatus tendons, involving approximately 50% tendon width. Associated tendinopathy. 3. Partial tear of the superior subscapularis tendon, posterior insertional aspect, approximately 30%. Associated mild tendinopathy. 4. Mild degenerative glenohumeral joint changes, and mild to moderate AC joint changes. 5. Mild subacromial/subdeltoid bursitis. 6. Grossly the glenoid labrum appears intact allowing for limitations. Electronically signed by: Catrachito Chacko MD 08/04/2024 12:56 PM [facility] Ordering Physician: Raiza Chen Date of Service: 08/03/24 Procedure(s): MR shoulder RT wo con Accession Number(s): [id number] cc: Lasha Ramos PA-C; Raiza Chen~ EXAMINATION: MR SHOULDER, RIGHT CLINICAL INFORMATION: Bilateral shoulder pain, 5 months duration intermittently. Decreased range of motion. Numbness in hands. COMPARISON: No prior. Right shoulder radiographs 04/18/2024. TECHNIQUE: Multiplanar multisequence MR imaging of the right shoulder was done without IV contrast. Examination performed on a 1.5 Nikkie Siemens unit utilizing standard sequences. FINDINGS: Study somewhat suboptimal secondary to internal rotation of the joint. Rotator Cuff and Biceps Tendon: Supraspinatus: No definite tear is seen allowing for internal humeral rotation. There is thickening of the distal tendon with hyperintensity consistent with tendinopathy. Normal muscle belly. Infraspinatus: There is a myotendinous intrasubstance small tear (series 7, image 19). There is thickening of the distal tendon with hyperintensity consistent with tendinopathy. There may be a subtle rim rent tear at the insertion measuring 2.5 mm. (Series 7, image 22). There is a small amount of subcortical edema of the insertion on the posterior greater tuberosity. Normal muscle belly. Subscapularis: Subtle myotendinous tear measuring approximately 6 mm AP by 9 mm TRV (series 7, image 15). Mild thickening and hyperintensity of the distal tendon is consistent with tendinopathy. Normal muscle belly. Teres Minor: Intact and normal in signal. Normal muscle belly. Biceps Long Head: Located within the groove. Intact and normal in signal. Cannot well assess the tendon in the rotator interval. It is grossly intact. AC Joint and Acromiohumeral Arch: Mild hypertrophic arthropathy of the AC joint with predominantly mild superior surface spurring, and minimal undersurface spurring. Mild periarticular edema. No supraspinatus outlet stenosis. Laterally downsloping acromion without spurring. Glenohumeral Joint and Labrum: Normal appearing joint cartilage. No subchondral bone plate edema. There is mild spurring of the inferior glenoid, possibly secondary to old fracture. (Series 6, image 16). Difficult to assess the labrum, although no discrete labral tear is visualized. Osseous Structures: No additional regions of bone marrow signal abnormality. Spino-glenoid Notch: Normal Quadrilateral Space: Normal Other: Small amount of fluid in hyperintensity within the subacromial/subdeltoid bursa. The glenohumeral ligaments appear normal. MR/MR shoulder RT wo con IMPRESSION: 1. Mildly limited exam due to suboptimal positioning/internal rotation of the humerus. 2. Supraspinatus tendon is intact without definitive tear. There is thickening and hyperintensity distal tendon consistent with tendinopathy. There may be subtle bursal surface fraying. 3. Suspect a tiny insertional tear of the infraspinatus tendon, as well as a subtle myotendinous injury. There is a small amount of subcortical bone edema at the insertional aspect. There is tendinopathy of the tendon. 4. Subscapularis tendon demonstrates a small myotendinous tear, however is otherwise intact. There are changes of tendinopathy. 5. Grossly the glenoid labrum appears intact allowing for limitations. 6. Mild arthritic changes glenohumeral joint. There is mild osseous spurring of the inferior glenoid, possibly secondary to old injury. There is mild to moderate arthritis in the AC joint. 7. Mild subacromial/subdeltoid bursitis. Electronically signed by: Catrachito Chacko MD 08/04/2024 12:07 PM [facility] Assessment & Plan Assessment & Plan (1) Injury of left rotator cuff: Code(s): S46.002A - Unspecified injury of muscle(s) and tendon(s) of the rotator cuff of left shoulder, initial encounter Category: Medical Qualifiers: Encounter type: initial encounter Qualified Code(s): S46.002A - Unspecified injury of muscle(s) and tendon(s) of the rotator cuff of left shoulder, initial encounter (2) Rotator cuff tear: Code(s): M75.100 - Unspecified rotator cuff tear or rupture of unspecified shoulder, not specified as traumatic Category: Medical Qualifiers: Rotator cuff tear extent: incomplete Rotator cuff tear trauma status: nontraumatic Laterality: left Qualified Code(s): M75.112 - Incomplete rotator cuff tear or rupture of left shoulder, not specified as traumatic Plan We discussed MRI findings with educational sign language interpreter and diagrams. He verbalized understanding. I suspect this is from repetitive heavy lifting, 300-400 lbs. I offered shoulder injection but he had poor experience from someone else who injected his hip in the past so he defers today. He would like to see his surgical options, referring him to Dr. Daniel. Work note to restrict lifting above 15 lbs given. We can switch ibuprofen to naproxen 500 mg b.i.d. PRN. Can also apply diclofenac gel up to twice a day. Discussed side effects and precautions. Assessment and plan discussed with patient, and patient was agreeable. All questions were answered thoroughly. Raiza Travis MD, EBER Board Certified, [place] [employer] and Rehabilitation (ABPMR) Board Certified, [place] [employer] Electro[employer] (ABEM) Medications: New diclofenac sodium 1% apply to shoulder twice a day 2 grams topical QID 100 grams 3RF naproxen 500 mg PO BID PRN 60 tabs 0RF pain Coding Level of Care Code Est Pt Level 4 (87943) Diagnoses Injury of left rotator cuff, initial encounter S46.002A Encounter type: initial encounter Nontraumatic incomplete tear of left rotator cuff M75.112 Rotator cuff tear extent: incomplete Rotator cuff tear trauma status: nontraumatic Laterality: left
--- OUTSIDE RECORDS SUMMARY | 2024-09-05 12:53 | XMS_ITS | Clinical Summary ---
Author Organization [facility] Address [address] [place] [address] Care Team Providers Care Breaker Oiler Name Role Phone Lasha Ramos PA-C Primary Care Provider Source Comments PLEASE NOTE, if this patient is a minor, it may be UNLAWFUL to discuss sensitive information that is contained in these records (such as FAMILY PLANNING, MENTAL HEALTH or SUBSTANCE ABUSE) with the minor patient's parent or other person without the patient's specific authorization.[facility] Allergies No known active allergies Medications blood pressure monitorIndications :Essential hypertension DX - HTN -Blood pressure check daily 1 Kit 1 7 Active blood-glucose meter monitoring kitIndications:Unc ontrolled type 2 diabetes mellitus with hyperglycemia (HCC-CMS) 2 (two) times daily E 11.65 1 Each 1 Active lancets (FREESTYLE LANCETS) 28 gaugeIndications:U ncontrolled type 2 diabetes mellitus with hyperglycemia (HCC-CMS) Use Twice a day . E 11.65 100 Each 11 1 Active blood sugar diagnostic (FREESTYLE TEST) stripsIndications: Uncontrolled type 2 diabetes mellitus with hyperglycemia (HCC-CMS) 2 (two) times daily E 11.65 100 Each 11 1 Active alcohol swabsIndications:U ncontrolled type 2 diabetes mellitus with hyperglycemia (HCC-CMS) Use Twice a day E 11.65 100 Each 11 1 Active blood pressure test kit-large Device id [id number] Monitor bp daily 1 Kit 2 Active hydrocortisone 2.5 % creamIndications:R adolfo Apply topically 2 (two) times daily For 2 weeks 30 g 4 Active lisinopriL-hydroch lorothiazide 20-25 mg per tabletIndications: Essential hypertension Take 1 Tablet by mouth once daily 90 Tablet 1 4 Active glipiZIDE (GLUCOTROL XL) 10 mg ER, 24 hour tabletIndications: Uncontrolled type 2 diabetes mellitus with hyperglycemia ([facility]) Take 1 Tablet by mouth once daily with breakfast for 90 days 90 Tablet 4 Active empagliflozin (JARDIANCE) 25 mg tabIndications:Unc ontrolled type 2 diabetes mellitus with hyperglycemia (HCC-CMS) Take 1 Tablet by mouth once daily for 90 days 30 Tablet 2 4 Active ibuprofen 800 mg tabletIndications: Neck pain TAKE 1 TABLET BY MOUTH THREE TIMES A DAY NEEDED FOR PAIN 90 Tablet 1 4 Active atorvastatin (LIPITOR) 40 mg tabletIndications: Mixed hyperlipidemia Take 1 Tablet by mouth once daily 90 Tablet 1 4 Active amLODIPine (NORVASC) 5 mg tabletIndications: Essential hypertension Take 1 Tablet by mouth once daily 90 Tablet 1 5 Active pioglitazone (ACTOS) 45 mg tabletIndications: Uncontrolled type 2 diabetes mellitus with hyperglycemia ([facility]) Take 1 Tablet by mouth once daily 90 Tablet 1 5 Active Active Problems Problem Noted Date Diagnosed Date Chronic bilateral low back pain with bilateral s ciatica 07/25/2023 Major depressive disorder, r ecurrent episode, severe with anxious distress ([facility]) 01/30/2023 Uncontrolled type 2 diabetes mellitus with hyperglycemia ([facility]) 02/15/2021 Mixed hyperlipidemia 02/15/2021 Mild episode of recurrent ma rachel depressive disorder ([facility]) 07/12/2018 Vertigo 07/12/2018 Degenerative arthritis 12/17/2016 Overview (12/17/2016): noted on X ray 12/12/16 - Superior endplates of L1,L4,L5 Essential hypertension 12/02/2014 Encounters Date Type Department Care Team Description 07/01/2024 1:00 PM EST Office Visit [address] [address] Chuck Dumont, PharmD Uncontrolled type 2 diabetes mellitus with hyperglycemia (HCC-CMS) (Primary Dx); Essential hypertension 07/01/2024 Travel 06/11/2024 2:20 PM EST Office Visit [facility] [place] [address] Lasha Ramos PA-C Annual physical exam (Primary Dx); Immunization due; Uncontrolled type 2 diabetes mellitus with hyperglycemia (HCC-CMS); Essential hypertension; Mixed hyperlipidemia 06/11/2024 Travel from Last 3 Months Immunizations Name Administration Dates Next Due PATRIA COVID-19 VACCINE 09/27/2020 TDAP 04/19/2022 ZOSTER VACCINE, RECOMBINANT (SHINGRIX) ,07/25/2023 Family History Medical History Relation Name Comments Alcohol/Drug Abuse Father Heart Problems Mother Relation Name Status Comments Father Mother Alive Social History Tobacco Use Types Packs/Day Years Used Date Smoking Tobacco: Never Passive Smoke Exposure: Never Smokeless Tobacco: Never Tobacco Cessation:Counseling Given: No Alcohol Use Standard Drinks/Week Comments Yes 0 (1 standard drink = 0.6 oz pur e alcohol) special occasions Social Connections Answer Date Recorded Connectedness 1 06/11/2024 Financial Resource Strain Answer Date R ecorded Financial Resource Strain 1 2023 Stress Answer Date Recorded Stress 1 06/11/2024 Physical Activity Answer Date Recorded Physical Activity 0 02/16/2019 Food Insecurity Answer Date Recorded Food 1 06/11/2024 Transportation Needs Answer Date Record ed Transportation 1 06/11/2024 Housing Stability Answer Date Recorded Housing 1 06/11/2024 Safety and Environment Answer Date Yoav rded Safety 0 04/24/2023 Utilities Answer Date Recorded Utilities 1 06/11/2024 Employment Answer Date Recorded Stress 0 03/22/2022 Sex and Gender Information Value Date Recorded Sex Assigned at Male 06/08/2017 11:19 AM PST Legal Sex Male 6:32 AM PDT Gender Identity Male 06/08/2017 11:19 AM PST Sexual Orientation Straight 06/08/2017 11 :19 AM PST Last Filed Vital Signs Vital Sign Reading Time Taken Comments Blood Pressure 150/100 07/01/2024 1:02 PM EST Pulse 82 07/01/2024 1:02 PM EST Temperature 36.8 ??C (98.2 ??F) 07/01/2024 1:02 PM ES T Respiratory Rate 18 07/01/2024 1:02 PM EST Oxygen Saturation 99% 07/01/2024 1:02 PM EST Inhaled Oxygen Concentration - - Weight 96.5 kg (212 lb 12.8 oz) 07/01/2024 1:02 PM EST Height 180.3 cm (5' 11 ) 07/01/2024 1:02 PM EST Body Mass Index 29.68 07/01/2024 1:02 PM EST Plan of Treatment Upcoming Encounters Date Type Department Care Team (Late st Contact Info) Description 09/22/2024 11:00 AM EDT Office Visit [facility] [address] [place] [phone] Andre Rowan Nisha [address] [place] [address] 10/07/2024 11:00 AM EDT Office Visit [facility] [address] [place] [phone] Chuck Dumont, PharmD [address] [place] [address] Health Maintenance Due Date Last Done Comments Dental Examination 1970 Retinopathy Screening 08/28/1983 Imm-Pneumococcal (1 of 2 - PCV) 1989 CT Colonography 08/28/2015 Colonoscopy 08/28/2015 Fecal DNA 08/28/2015 Flexible Sigmoidoscopy 08/28/2015 Diabetes Foot Exam 12/16/2023 12/15/2022 [id number] ( season) 2024 021 Alcohol and Drug Screen 06/25/2024 06/11/20 24, 03/12/2024, 07/25/2023, Additional history exists Diabetes Microalbumin (w/Creatinine) 07/25/2024 07/25/2023 Colorectal Cancer Screening 08/05/2024 FIT/gFOBT 08/05/2024 08/05/2023, 02/16/2021 Depression Monitoring 09/09/2024 06/11/2024 , 03/12/2024, 07/25/2023, Additional history exists Diabetes HbA1c 09/29/2024 07/01/2024, 12/2024, 03/10/2024, Additional history exists Tobacco Screening 10/29/2024 10/30/2023 Annual Preventive Care Visit 06/11/2025, 04/24/2023, 04/19/2022, Additional history exists Lipid Screening 07/01/2025 07/01/2024, 02/23, 07/25/2023, Additional history exists Serum Creatinine 07/01/2025 07/01/2024, , 07/25/2023, Additional history exists Imm-DTaP/Tdap/Td (2 - Td or Tdap) 04/19/2032 Hepatitis C Screening Completed 02/14/2021 HIV Screening Completed 10/11/2022 Imm-Zoster, Recombinant Completed 06/11/2024, 07/25 Imm-Hepatitis B Discontinued Imm-Influenza Discontinued Goals Goal Patient Goal Type Associated Problems Recent Progress Patient-Stated? Author Blood Pressure < 130/80 Blood Pressure 150/100(07/01 1:02 PM EST) No Mariposa Pruett, DEJAN Hypertension: Decrease sodium intake General On track( 1:42 PM PST) No Chuck Dumont, HeatherD Procedures Procedure Name Priority Date/Time Associated Diagnosis Comments IMAGING SCANNED DOCUMENT 08/03/2024 3:00 AM EST IMAGING SCANNED DOCUMENT 08/03/2024 3:00 AM EST IMAGING SCANNED DOCUMENT 08/03/2024 3:00 AM EST IMAGING SCANNED DOCUMENT 08/03/2024 3:00 AM EST REFERRAL TO ORTHOPEDICS Routine 07/10/19 3:00 AM EST Neck pain LIPID PANEL Routine 07/01/2024 1:35 PM EST Uncontrolled type 2 diabetes mellitus with hyperglycemia (HCC-CMS) Essential hypertension HEMOGLOBIN GLYCOSYLATED A1C Routine 07/01/2024 1:35 PM EST Uncontrolled type 2 diabetes mellitus with hyperglycemia (HCC-CMS) COMPREHENSIVE METABOLIC PANEL Routine 07/01/2024 1:35 PM EST Uncontrolled type 2 diabetes mellitus with hyperglycemia (HCC-CMS) Essential hypertension BLOOD COUNT COMPLETE AUTO&AUTO DIFRNTL WBC Routine 07/01/2024 1:35 PM EST Uncontrolled type 2 diabetes mellitus with hyperglycemia (HCC-CMS) Essential hypertension HGBA1C W/MPG Routine 07/01/2024 1:34 PM EST Uncontrolled type 2 diabetes mellitus with hyperglycemia (HCC-CMS) GLUCOSE, BLOOD BY GLUCOSE MONITORING DEVICE (CLIA WAIVED)POCT Routine 07/01/2024 1:10 PM EST Uncontrolled type 2 diabetes mellitus with hyperglycemia (HCC-CMS) FECAL GLOBIN BY IMMUNOCHEMISTRY (FIT) Routine 08/05/2023 7:00 PM EST Colon cancer screening MICROALBUMIN/CREATININE RATIO, URINE, RANDOM Routine 07/25/2023 11:32 AM EST Uncontrolled type 2 diabetes mellitus with hyperglycemia (HCC-CMS) HIV 1/2 AG & AB W/RFLX (4TH GEN) Routine 10/11/2022 10:44 AM EDT Routine screening for STI (sexually transmitted infection) HEPATITIS C AB W/RFLX HCV RNA, QT, RT PCR Routine 02/14/2021 10:54 AM EDT Health care maintenance from Last 3 Months or Most Recently Relevant to Health Maintenance Results * IMAGING SCANNED DOCUMENT (08/03/2024 3:00 AM EST) Only the most recent of4 resultswithin the time period is included. 08/03/2024 3:00 AM EST us Lasha Ramos PA-C SCAN IMAGING Final Result * REFERRAL TO ORTHOPEDICS (07/10/2024 3:00 AM EST) 07/10/2024 3:00 AM EST us Lasha Ramos PA-C REFERRAL Final Result * (ABNORMAL) BLOOD COUNT COMPLETE AUTO&AUTO DIFRNTL WBC (07/01/2024 1:35 PM EST) [facility] WHITE BLOOD CELL COUNT 8.4 3.8 - 10.8 Thousand/ uL [employer] [facility] RED BLOOD CELL COUNT 6.21(H) 4.20 - 5.80 Million/u L [employer] HEMOGLOBIN 17.7(H) 13.2 - 17.1 g/dL [employer] HEMATOCRIT 52.1(H) 38.5 - 50.0 % [employer] MCV 83.9 80.0 - 100.0 fL [employer] MCH 28.5 27.0 - 33.0 pg [employer] MCHC 34.0 32.0 - 36.0 g/dL [employer] Comment: For adults, a slight decrease in the calculated MCHC value (in the range of 30 to 32 g/dL) is most likely not clinically significant; however, it should be interpreted with caution in correlation with other red cell parameters and the patient's clinical condition. RDW 17.1(H) 11.0 - 15.0 % [employer] PLATELET COUNT 161 140 - 400 Thousand/ uL [employer] MPV 14.3(H) 7.5 - 12.5 fL [employer] ABSOLUTE NEUTROPHILS 5,720 1,500 - 7,800 cells/uL [employer] ABSOLUTE LYMPHOCYTES 2,016 850 - 3,900 cells/uL [employer] ABSOLUTE MONOCYTES 496 200 - 950 cells/uL [employer] ABSOLUTE EOSINOPHILS 109 15 - 500 cells/uL [employer] ABSOLUTE BASOPHILS 59 0 - 200 cells/uL [employer] [facility] NEUTROPHILS PCT 68.1 % [employer] [facility] LYMPHOCYTES 24.0 % [facility] [employer] [facility] MONOCYTES 5.9 % [facility] [employer] [facility] EOSINOPHILS 1.3 % [facility] [employer] BASOPHILS 0.7 % [facility] [employer] Blood Blood / Unknown 07/01/2024 1 :35 PM EST 07/01/2024 1:36 PM EST Lasha Ramos PA-C LAB - BLOOD DRAW Edited Resu lt - Final [facility] [address] [address], [employer] [address] [address] * (ABNORMAL) HEMOGLOBIN GLYCOSYLATED A1C (07/01/2024 1:35 PM EST) HEMOGLOBIN A1C 8.6(H) <5.7 % of total Hgb [employer] [facility] Comment: For someone without known diabetes, a hemoglobin A1c value of 6.5% or greater indicates that they may have diabetes and this should be confirmed with a follow-up test. For someone with known diabetes, a value <7% indicates that their diabetes is well controlled and a value greater than or equal to 7% indicates suboptimal control. A1c targets should be individualized based on duration of diabetes, age, comorbid conditions, and other considerations. Currently, no consensus exists regarding use of hemoglobin A1c for diagnosis of diabetes for children. ?? Blood Blood / Unknown 07/01/2024 1 :35 PM EST 07/01/2024 1:36 PM EST Lasha Ramos PA-C LAB - BLOOD DRAW Final Resul t [employer] [facility] [address] [address], [employer] [address] [address] * (ABNORMAL) LIPID PANEL (07/01/2024 1:35 PM EST) CHOLESTEROL, TOTAL 235(H) <200 mg/dL [employer] [facility] HDL CHOLESTEROL 40 > OR = 40 mg/dL [employer] [facility] TRIGLYCERIDES 342(H) <150 mg/dL [employer] [facility] Comment: If a non-fasting specimen was collected, consider repeat triglyceride testing on a fasting specimen if clinically indicated. Richard et al. J. of Clin. Lipidol. 2015;9:129-169. LDL-CHOLESTEROL 142(H) 99 mg/dL (calc) [employer] [facility] Comment: Reference range: <100 Desirable range <100 mg/dL for primary prevention; ?? <70 mg/dL for patients with CHD or diabetic patients with > or = 2 CHD risk factors. LDL-C is now calculated using the Benjamin-Abarca calculation, which is a validated novel method providing better accuracy than the Friedewald equation in the estimation of LDL-C. Benjamin CHRIS et al. LAYO. 2013;310(19): 6439-0271 (http://education.VaxInnate/faq/QLV949) CHOL/HDLC RATIO 5.9(H) <5.0 (calc) [employer] NON-HDL CHOLESTEROL 195(H) <130 mg/dL (calc) [employer] Comment: For patients with diabetes plus 1 major ASCVD risk factor, treating to a non-HDL-C goal of <100 mg/dL (LDL-C of <70 mg/dL) is considered a therapeutic option. Blood Blood / Unknown 07/01/2024 1 :35 PM EST 07/01/2024 1:36 PM EST Lasha Ramos PA-C LAB - BLOOD DRAW Final Resul t [facility] [address] [place] [phone], [employer] [address] [place] [phone] * (ABNORMAL) COMPREHENSIVE METABOLIC PANEL (07/01/2024 1:35 PM EST) GLUCOSE 218(H) 65 - 99 mg/dL [employer] Comment: ?Fasting reference interval For someone without known diabetes, a glucose value >125 mg/dL indicates that they may have diabetes and this should be confirmed with a follow-up test. UREA NITROGEN (BUN) 16 7 - 25 mg/dL [employer] CREATININE (blood) 1.07 0.70 - 1.30 mg/dL [employer] EGFR 83 > OR = 60 mL/min/1. 73m2 [employer] BUN/CREATININE RATIO SEE NOTE: [employer] Comment: ?? Not Reported: BUN and Creatinine are within ?? reference range. ? SODIUM 139 135 - 146 mmol/L [employer] POTASSIUM 4.1 3.5 - 5.3 mmol/L [employer] CHLORIDE 105 98 - 110 mmol/L [employer] CARBON DIOXIDE 25 20 - 32 mmol/L [employer] CALCIUM 9.7 8.6 - 10.3 mg/dL [employer] PROTEIN, TOTAL 7.5 6.1 - 8.1 g/dL [employer] ALBUMIN 4.8 3.6 - 5.1 g/dL [employer] GLOBULIN 2.7 1.9 - 3.7 g/dL (calc) [employer] ALBUMIN/GLOBULI N RATIO 1.8 1.0 - 2.5 (calc) [employer] BILIRUBIN, TOTAL 1.3(H) 0.2 - 1.2 mg/dL [employer] ALKALINE PHOSPHATASE 78 35 - 144 U/L [employer] AST 37(H) 10 - 35 U/L [employer] ALT 61(H) 9 - 46 U/L [employer] Blood Blood / Unknown 07/01/2024 1 :35 PM EST 07/01/2024 1:36 PM EST Lasha Ramos PA-C LAB - BLOOD DRAW Edited Resu lt - Final [facility] [address] [place] [phone], [employer] [address] [place] [phone] * (ABNORMAL) HGBA1C W/MPG (07/01/2024 1:34 PM EST) HEMOGLOBIN A1C 8.8(H) <5.7 % of total Hgb [employer] Comment: For someone without known diabetes, a hemoglobin A1c value of 6.5% or greater indicates that they may have diabetes and this should be confirmed with a follow-up test. For someone with known diabetes, a value <7% indicates that their diabetes is well controlled and a value greater than or equal to 7% indicates suboptimal control. A1c targets should be individualized based on duration of diabetes, age, comorbid conditions, and other considerations. Currently, no consensus exists regarding use of hemoglobin A1c for diagnosis of diabetes for children. ?? MEAN PLASMA GLUCOSE 236 mg/dL (calc) [employer] Blood Blood / Unknown 07/01/2024 1 :34 PM EST 07/01/2024 1:35 PM EST Chuck Flynn PharmD LAB - BLOOD D RAW Final Result Performing Organization Address [facility] Co de Phone Number [facility] [address] [address], [facility] [address] [address] * (ABNORMAL) GLUCOSE, BLOOD BY GLUCOSE MONITORING DEVICE (CLIA WAIVED)POCT (07/01/2024 1:10 PM EST) GLUCOSE 234(A) 70 - 100 mg/dL [facility] POCT Capillary Blood Blood / Unknown 1:10 PM EST Chuck Flynn PharmD LAB - BLOOD D RAW Final Result Performing Organization Address [facility] de Phone Number [facility] OFF[facility] POCT * FECAL GLOBIN BY IMMUNOCHEMISTRY (FIT) (08/05/2023 7:00 PM EST) FECAL GLOBIN BY IMMUNOCHEMISTRY See Note [employer] [facility] Comment: ??FECAL GLOBIN BY IMMUNOCHEMISTRY ?Micro Number: ?[id number] ??Test Status: ? Final ??Specimen Source: ?? Insure (tm) fobt test card ??Specimen Quality: ??Adequate ??Fecal Globin: ?Not Detected Stool Stool specimen / Unknown 08/05/2023 7:00 PM EST 08/08/2023 4:31 AM EST Mignon NEAL LAB - NO BLOOD DRAW Final Resul t Performing Organization Address [facility] Co de Phone Number [facility] [address] [address], [facility] [address] [address] * (ABNORMAL) MICROALBUMIN/CREATININE RATIO, URINE, RANDOM (07/25/2023 11:32 AM EST) CREATININE, RANDOM URINE 59 20 - 320 mg/dL [employer] MICROALBUMIN 2.1 mg/dL [employer] [facility] Comment: Reference Range Not established MICROALBUMIN/CREA TININE RATIO, RANDOM URINE 36(H) <30 mcg/mg creat [employer] Comment: The ADA defines abnormalities in albumin excretion as follows: Albuminuria Category ?Result (mcg/mg creatinine) Normal to Mildly increased ?? <30 Moderately increased ? 30-299 Severely increased ? > OR = 300 The ADA recommends that at least two of three specimens collected within a 3-6 month period be abnormal before considering a patient to be within a diagnostic category. Urine Urine specimen / Unknown 07/25/2023 11:32 AM EST 07/25/2023 11:33 AM EST Narrative 2d2c [facility] - 07/26/2023 5:35 PM EST FASTING:YES Lasha Ramos PA-C LAB - NO BLOOD DRAW Final Re sult 2d2c [address] [address], [employer] [address] [address] * HIV 1/2 AG & AB W/RFLX (4TH GEN) (10/11/2022 10:44 AM EDT) HIV AG/AB, 4TH GEN NON-REAC TIVE NON-REAC TIVE [employer] [facility] Comment: HIV-1 antigen and HIV-1/HIV-2 antibodies were not detected. There is no laboratory evidence of HIV infection. PLEASE NOTE: This information has been disclosed to you from records whose confidentiality may be protected by state law. ??If your state requires such protection, then the state law prohibits you from making any further disclosure of the information without the specific written consent of the person to whom it pertains, or as otherwise permitted by law. A general authorization for the release of medical or other information is NOT sufficient for this purpose. ?? For additional information please refer to http://education.Looop Online/faq/RRF769 (This link is being provided for informational/ educational purposes only.) The performance of this assay has not been clinically validated in patients less than 2 years old. Blood Blood / Unknown 10/11/2022 1 0:44 AM EDT 10/11/2022 10:45 AM EDT Narrative [facility] - 10/12/2022 6:32 AM EDT PATIENT UNABLE TO VOID; ADVISED TO RETURN FOR COLLECTION. Lasha Ramos PA-C LAB - BLOOD DRAW Final Resul t Performing Organization Address [facility]/ZIP Co de Phone Number [facility] [address] [place] [phone], [employer] [address] [place] [phone] * HEPATITIS C AB W/RFLX HCV RNA, QT, RT PCR (02/14/2021 10:54 AM EDT) HEPATITIS C ANTIBODY NON-REACT TASHA NON-REACT TASHA [employer] SIGNAL TO CUT-OFF 0.00 <1.00 [employer] Comment: HCV antibody was non-reactive. There is no laboratory evidence of HCV infection. In most cases, no further action is required. However, if recent HCV exposure is suspected, a test for HCV RNA (test code 38082) is suggested. For additional information please refer to http://Zuujit.Looop Online/faq/JKD53k5 (This link is being provided for informational/ educational purposes only.) Blood Blood / Unknown 02/14/2021 1 0:54 AM EDT 02/14/2021 10:55 AM EDT Narrative [facility] - 02/15/2021 1:22 AM EDT FASTING:YES Brown Costa MD LAB - BLOOD DRAW Final Result [facility] [address] [place] [id number], [employer] [address] [place] [address],[place] [address] from Last 3 Months or Most Recently Relevant to Health Maintenance Insurance [email or web address] COM Member Subscriber Plan / Payer (Ef fective 2021-Present) Name:Arpan Leach Relation to Subscriber:Self Name:Arpan Leach Payer ID:[id number] Type:[employer] Address: [address] [address] [place] [address] [facility] [employer] [facility] Care Teams Breaker Oiler Relationship Specialty Start Date End Date Lasha Ramos PA-C [address] [place] [address] PCP - General FAMILY MEDICINEVAL 02/14/21
--- OUTSIDE RECORDS SUMMARY | 2024-09-05 12:53 | XMS_ITS | Clinical Summary ---
Author Organization [facility] Address [address] [place] [phone] Phone Care Team Providers Care Video Game Engineer Name Role Phone Lasha Ramos Primary Care Provider [phone] Social History Tobacco Use Types Packs/Day Years Used Date Smoking Tobacco: Never Assessed Sex and Gender Information Value Date Recorded Sex Assigned at Not on file Legal Sex Male 7:02 AM EST Gender Identity Not on file Sexual Orientation Not on file Plan of Treatment Health Maintenance Due Date Last Done Comments DTaP,Tdap,and Td Vaccines (1 - Tdap) 1989 Hepatitis B Vaccines (1 of 3 - 19+ 3-dose series) 1989 Pneumococcal Vaccine: 50+ Ye ars (1 of 1 - PCV) 2020 Zoster Vaccines (1 of 2) 2020 Cholesterol Screening (Lipid Panel) 12/19/2022 Colorectal Cancer Screening: Colonoscopy 12/19/2022 Depression Screening 12/19/2022 HIV Screening 12/19/2022 Hepatitis C Screening 12/19/2022 Social Influencers of Health Screening 12/19/2022 COVID-19 Vaccine (2023-2 5 season) 2024 Influenza Vaccine (#1) 2024 HIB Vaccines Aged Out No longer eligi ble based on patient's age to complete this topic HPV Vaccines Aged Out No longer eligi ble based on patient's age to complete this topic Hepatitis A Vaccines Aged Out No long er eligible based on patient's age to complete this topic IPV Vaccines Aged Out No longer eligi ble based on patient's age to complete this topic MMR Vaccines Aged Out No longer eligi ble based on patient's age to complete this topic Meningococcal ACWY Vaccine Aged Out N o longer eligible based on patient's age to complete this topic Meningococcal B Vacine Aged Out No lo nger eligible based on patient's age to complete this topic Pneumococcal Vaccine: Pediat rics (0 to 5 Years) and At-Risk Patients (6 to 64 Years) Aged Out No longer eligible b ased on patient's age to complete this topic RSV Immunization Patients Un sean 20 months Aged Out No longer eligible b ased on patient's age to complete this topic Varicella Vaccines Aged Out No longer eligible based on patient's age to complete this topic Care Teams Video Game Engineer Relationship Specialty Start Date End Date Lasha Ramos PA [address] [place] [address] PCP - General 03/29/22
--- OUTSIDE RECORDS SUMMARY | 2024-09-05 12:53 | XMS_ITS ---
Author Organization [facility] Address [address] [place] [address] Care Team Providers Care Stenciling Machine Tender Name Role Phone Lasha Ramos PA-C Primary Care Provider [id number] [facility] Program Status:Enrolled (Active) Start date:05/15/2022 Enrollment date:05/15/2022 Case Team Name Relationship Phone Chuck Flynn PharmD (Responsible Staff) [phone] Continued Care and Services Coordination
== END 2024-09-05 11:36 | disposition home or self-care (01) ==
LOC: HO.HOS 11:09
PROVIDERS: PCP Physician Assistant Medical; Visit Provider Physical Medicine & Rehabilitation
DX: S46.002A Unspecified injury of muscle(s) and tendon(s) of the rotator cuff of left shoulder, initial encounter (principal); M75.112 Incomplete rotator cuff tear or rupture of left shoulder, not specified as traumatic
CPT/HCPCS: 99214

== ENCOUNTER → 2024-09-05 11:09 | Outpatient (BNVA) | payer OTHER, SELFPAY | PROVIDERS: PCP Physician Assistant Medical; Visit Provider Physical Medicine & Rehabilitation | DX: M75.112 Incomplete rotator cuff tear or rupture of left shoulder, not specified as traumatic (principal); S46.002A Unspecified injury of muscle(s) and tendon(s) of the rotator cuff of left shoulder, initial encounter; X58.XXXA Exposure to other specified factors, initial encounter; Y93.9 Activity, unspecified; Y92.9 Unspecified place or not applicable; Y99.9 Unspecified external cause status | CPT/HCPCS: 99212 ==

== ENCOUNTER 2024-10-02 08:06 | Outpatient (AMB) | payer OTHER, SELFPAY ==
--- OUTSIDE RECORDS SUMMARY | 2024-10-02 08:12 | XMS_ITS ---
Author Organization [facility] Address [address] [place] [address] Care Team Providers Care Guncotton Packer Name Role Phone Lasha Ramos PA-C Primary Care Provider [phone] [facility] Program Status:Enrolled (Active) Start date:05/15/2022 Enrollment date:05/15/2022 Case Team Name Relationship Phone Chuck Flynn PharmD (Responsible Staff) [phone] Continued Care and Services Coordination
--- OUTSIDE RECORDS SUMMARY | 2024-10-02 08:12 | XMS_ITS | Clinical Summary ---
Author Organization [facility] Address [address] [place] [address] Care Team Providers Care Tube Mill Operator Name Role Phone Lasha Ramos PA-C Primary [...] Active blood pressure test kit-large Device id [id number] Monitor bp daily 1 Kit 2 Active hydrocortisone 2.5 % creamIndications:R adolfo Apply topically 2 (two) times daily For 2 weeks 30 g 4 Active lisinopriL-hydroch lorothiazide 20-25 mg per tabletIndications: Essential hypertension Take 1 Tablet by mouth once daily 90 Tablet 1 4 Active glipiZIDE (GLUCOTROL XL) 10 mg ER, 24 hour tabletIndications: Uncontrolled type 2 diabetes mellitus with hyperglycemia ([facility]) Take 1 Tablet by mouth once daily [...] type 2 diabetes mellitus with hyperglycemia ([facility]) Take 1 Tablet by mouth once daily 90 Tablet 1 5 Active Active Problems Problem Noted Date Diagnosed Date Chronic bilateral low back pain with bilateral s ciatica 07/25/2023 Major depressive disorder, r ecurrent episode, severe with anxious distress ([facility]) 01/30/2023 Uncontrolled type 2 diabetes mellitus with hyperglycemia ([facility]) 02/15/2021 Mixed hyperlipidemia 02/15/2021 Mild episode of recurrent ma rachel depressive disorder ([facility] V24) 07/12/2018 Vertigo 07/12/2018 Degenerative arthritis 12/17/2016 Overview (12/17/2016): noted on X ray 12/12/16 - Superior endplates of L1,L4,L5 Essential hypertension 12/02/2014 Immunizations Immunization Administration Dates Next Due artaculous COVID-19 VACCINE 09/27/2020 TDAP 04/19/2022 ZOSTER VACCINE, RECOMBINANT (SHINGRIX) 4,07/25/2023 Family History Medical History Relation Name Comments [...] Height 180.3 cm (5' 11 ) 07/01/2024 1: 02 PM EST Body Mass Index 29.68 07/01/2024 1:02 PM EST Plan of Treatment Upcoming Encounters Date Type Department Care Team (Late st Contact Info) Description 10/07/2024 11:00 AM EDT Office Visit [address] [place] [address] Chuck Dumont, PharmD [address] [place] [address] Health Maintenance Due Date Last Done Comments Anxiety Screening 1970 Dental Examination 1970 Retinopathy Screening 08/28/1983 Imm-Pneumococcal (1 of 2 - PCV) 1989 CT Colonography 08/28/2015 Colonoscopy 08/28/2015 Fecal DNA 08/28/2015 Flexible Sigmoidoscopy 08/28/2015 Diabetes Foot Exam 12/16/2023 12/15/2022 [id number] ( season) 2024 021 Alcohol and Drug Screen 06/25/2024 06/11/20 24, 03/12/2024, 07/25/2023, Additional history exists Urine Albumin Creatinine Rat io Screening 07/25/2024 07/25/2023 Colorectal Cancer Screening 08/05/2024 FIT/gFOBT [...] Imm-DTaP/Tdap/Td (2 - Td or Tdap) 04/19/2032 022 Hepatitis C Screening Completed 02/14/2021 HIV Screening Completed 10/11/2022 Imm-Zoster, Recombinant Completed 06/11/2024, 07/25 Imm-Hepatitis B Discontinued Imm-Influenza Discontinued Goals Goal Patient Goal Type Associated Problems Recent Progress Patient-Stated? Author Blood Pressure < 130/80 Blood Pressure 150/100(07/01 1:02 PM EST) No Mariposa Pruett RN Hypertension: Decrease sodium intake General On track( 022 1:42 PM PST) No Chuck Dumont, Ronaldo Procedures Procedure Name Priority Date/Time Associated Diagnosis Comments REFERRAL SCANNED DOCUMENT 09/05/2024 3:00 AM EDT IMAGING SCANNED DOCUMENT 08/03/2024 3:00 AM EST IMAGING SCANNED DOCUMENT 08/03/2024 3:00 AM EST IMAGING SCANNED DOCUMENT 08/03/2024 3:00 AM EST IMAGING SCANNED DOCUMENT 08/03/2024 3:00 AM EST REFERRAL TO ORTHOPEDICS Routine 07/10/19 3:00 AM EST Neck pain COMPREHENSIVE METABOLIC PANEL Routine 07/01/2024 1:35 PM EST Uncontrolled type 2 diabetes mellitus with hyperglycemia (HCC-CMS) Essential hypertension LIPID PANEL Routine 07/01/2024 1:35 PM EST [...] Recently Relevant to Health Maintenance Results * REFERRAL SCANNED DOCUMENT (09/05/2024 3:00 AM EDT) 09/05/2024 3:00 AM EDT us Rosimar Ramos PA-C SCAN REFERRAL Final Result * IMAGING SCANNED DOCUMENT (08/03/2024 3:00 AM EST) Only the most recent of4 resultswithin the time period is included. 08/03/2024 3:00 AM EST us Rosimar Ramos PA-C SCAN IMAGING Final Result * REFERRAL TO ORTHOPEDICS (07/10/2024 3:00 AM EST) 07/10/2024 3:00 AM EST us Rosimar Ramos PA-C REFERRAL Final Result * (ABNORMAL) LIPID PANEL (07/01/2024 1:35 PM EST) Pathologist [facility] CHOLESTEROL, TOTAL 235(H) <200 mg/dL [facility] HDL CHOLESTEROL 40 > OR = 40 mg/dL [facility] TRIGLYCERIDES 342(H) <150 mg/dL [facility] Comment: If a non-fasting specimen was collected, consider repeat triglyceride testing on a fasting specimen if clinically indicated. Richard et al. J. of Clin. Lipidol. 2015;9:129-169. LDL-CHOLESTEROL 142(H) 99 mg/dL (calc) [facility] Comment: Reference range: <100 Desirable range <100 mg/dL for primary prevention; ?? <70 mg/dL for patients with CHD or diabetic patients with > or = 2 CHD risk factors. LDL-C is now calculated using the Nikki calculation, which is a validated novel method providing better accuracy than the Friedewald equation in the estimation of LDL-C. Benjamin CHRIS et al. LAYO. 2013;310(19): 9383-1441 (http://education.InterviewBest/faq/REV199) CHOL/HDLC RATIO 5.9(H) <5.0 (calc) [facility] NON-HDL CHOLESTEROL 195(H) <130 mg/dL (calc) [facility] Comment: For patients with diabetes plus 1 major ASCVD risk factor, treating to a non-HDL-C goal of <100 mg/dL (LDL-C of <70 mg/dL) is considered a therapeutic option. Blood Blood / Unknown 07/01/2024 1 :35 PM EST 07/01/2024 1:36 PM EST Lasha Ramos PA-C LAB - BLOOD DRAW Final Resul t [facility] [address] [address], [facility] [address] [address] * (ABNORMAL) COMPREHENSIVE METABOLIC PANEL (07/01/2024 1:35 PM EST) GLUCOSE 218(H) 65 - 99 mg/dL [facility] Comment: ?Fasting reference interval For someone without known diabetes, a glucose value >125 mg/dL indicates that they may have diabetes and this should be confirmed with a follow-up test. UREA NITROGEN (BUN) 16 7 - 25 mg/dL [facility] CREATININE (blood) 1.07 0.70 - 1.30 mg/dL [facility] EGFR 83 > OR = 60 mL/min/1. 73m2 [facility] BUN/CREATININE RATIO SEE NOTE: [facility] Comment: ?? Not Reported: BUN and Creatinine are within ?? reference range. ? SODIUM 139 135 - 146 mmol/L [facility] POTASSIUM 4.1 3.5 - 5.3 mmol/L [facility] CHLORIDE 105 98 - 110 mmol/L [facility] CARBON DIOXIDE 25 20 - 32 mmol/L [facility] CALCIUM 9.7 8.6 - 10.3 mg/dL [facility] PROTEIN, TOTAL 7.5 6.1 - 8.1 g/dL [facility] ALBUMIN 4.8 3.6 - 5.1 g/dL [facility] GLOBULIN 2.7 1.9 - 3.7 g/dL (calc) [facility] ALBUMIN/GLOBULI N RATIO 1.8 1.0 - 2.5 (calc) [facility] BILIRUBIN, TOTAL 1.3(H) 0.2 - 1.2 mg/dL [facility] ALKALINE PHOSPHATASE 78 35 - 144 U/L [facility] AST 37(H) 10 - 35 U/L [facility] ALT 61(H) 9 - 46 U/L [facility] Blood Blood / Unknown 07/01/2024 1 :35 PM EST 07/01/2024 1:36 PM EST Lasha Ramos PA-C LAB - BLOOD DRAW Edited Resu lt - Final Performing Organization Address [facility]/ZIP Co de Phone Number [facility] [address] [address], [facility] [address] [address] * (ABNORMAL) HGBA1C W/MPG (07/01/2024 1:34 PM EST) HEMOGLOBIN A1C 8.8(H) <5.7 % of total Hgb [facility] Comment: For someone without known diabetes, [...] ?? MEAN PLASMA GLUCOSE 236 mg/dL (calc) [facility] Blood Blood / Unknown 07/01/2024 1 :34 PM EST 07/01/2024 1:35 PM EST Chuck Flynn PharmD LAB - BLOOD D RAW Final Result Performing Organization Address City/[facility]/ZIP Co de Phone Number [facility] [address] [address], [facility] [address] [address] * FECAL GLOBIN BY IMMUNOCHEMISTRY (FIT) (08/05/2023 7:00 PM EST) FECAL GLOBIN BY IMMUNOCHEMISTRY See Note [facility] Comment: ??FECAL GLOBIN BY IMMUNOCHEMISTRY ?Micro Number: ?[id number] ??Test Status: ? Final ??Specimen Source: ?? Insure (tm) fobt test card ??Specimen Quality: ??Adequate ??Fecal Globin: ?Not Detected Stool Stool specimen / Unknown 08/05/2023 7:00 PM EST 08/08/2023 4:31 AM EST Mignon NEAL LAB - NO BLOOD DRAW Final Resul t [facility] [address] [address], [facility] [address] [address] * (ABNORMAL) MICROALBUMIN/CREATININE RATIO, URINE, RANDOM (07/25/2023 11:32 AM EST) CREATININE, RANDOM URINE 59 20 - 320 mg/dL [facility] MICROALBUMIN 2.1 mg/dL [employer] [facility] [employer] Comment: Reference Range Not established MICROALBUMIN/CREA TININE RATIO, RANDOM URINE 36(H) <30 mcg/mg creat [facility] Comment: The ADA defines abnormalities in albumin [...] AM EST 07/25/2023 11:33 AM EST Narrative [facility] - 07/26/2023 5:35 PM EST FASTING:YES Lasha Ramos PA-C LAB - NO BLOOD DRAW Final Re sult Performing Organization Address [facility]/ZIP Co de Phone Number [facility] [address] [address], [facility] [address] [address] * HIV 1/2 AG & AB W/RFLX (4TH GEN) (10/11/2022 10:44 AM EDT) Pathologist [facility] HIV AG/AB, 4TH GEN NON-REAC TIVE NON-REAC TIVE [facility] Comment: HIV-1 antigen and HIV-1/HIV-2 antibodies [...] ?? For additional information please refer to http://education.Anita Margarita/faq/JRX237 (This link is being provided for informational/ educational purposes only.) The performance of this assay has not been clinically validated in patients less than 2 years old. Blood Blood / Unknown 10/11/2022 1 0:44 AM EDT 10/11/2022 10:45 AM EDT Narrative [facility] - 10/12/2022 6:32 AM EDT PATIENT UNABLE TO VOID; ADVISED TO RETURN FOR COLLECTION. Lasha Ramos PA-C LAB - BLOOD DRAW Final Resul t Performing Organization Address [facility]/ZIP Co de Phone Number [facility] [address] [address], [facility] [address] [address] * HEPATITIS C AB W/RFLX HCV RNA, QT, RT PCR (02/14/2021 10:54 AM EDT) Pathologist [facility] HEPATITIS C ANTIBODY NON-REACT TASHA NON-REACT TASHA [facility] SIGNAL TO CUT-OFF 0.00 <1.00 [facility] Comment: HCV antibody was non-reactive. There is no laboratory evidence of HCV infection. In most cases, no further action is required. However, if recent HCV exposure is suspected, a test for HCV RNA (test code 42887) is suggested. For additional information please refer to http://education.Anita Margarita/faq/DFY10o9 (This link is being provided for informational/ educational purposes only.) Blood Blood / Unknown 02/14/2021 1 0:54 AM EDT 02/14/2021 10:55 AM EDT Narrative [facility] [employer] [facility] [employer] - 02/15/2021 1:22 AM EDT FASTING:YES Brown Costa MD LAB - BLOOD DRAW Final Result [facility] [address] [address], [facility] [address] [address] from Last 3 Months or Most Recently Relevant to Health Maintenance Insurance INPHI Member Subscriber Plan / Payer (Ef fective 2021-Present) Name:Arpan Leach Relation to Subscriber:Self Name:Arpan Leach Payer ID:[id number] Type:[employer] Address: [address] [address] [place] [address] [facility] Care Teams Tube Mill Operator Relationship Specialty Start Date End Date Lasha Ramos PA-C [address] [place] [address] PCP - General [facility] MEDICINE[facility] 02/14/21
--- OUTSIDE RECORDS SUMMARY | 2024-10-02 08:12 | XMS_ITS | Clinical Summary ---
Author Organization [facility] Address [address] [place] [phone] Phone Care Team Providers Care Head Esthetician Name Role Phone Lasha Ramos Primary Care Provider [phone] Social History Tobacco Use Types Packs/Day Years [...] age to complete this topic Meningococcal B Vaccine Aged Out No l onger eligible based on patient's age to complete [...] age to complete this topic Care Teams Head Esthetician Relationship Specialty Start Date End Date Lasha Ramos PA [address] [place] [address] PCP - General 03/29/22
--- NOTE | 2024-10-02 08:18 | MHC.OFFVIS ---
Vital Signs 10/02/24 08:19 Height 5 ft 9 in Weight 215 lb BMI 31.7 Intake Visit Reasons: OV Bilat shoulder pain Intake Note: Arpan is a 54 year old right hand dominant, Romansh Speaking, male who presents today for a follow up of his bilateral shoulder pain. He was last seen with Raiza Travis, who reviewed MRI findings and offered injection. Patient declined injection as he has had one in the past that was not helpful. He would like to discuss surgical interventions. IMPRESSION: 1. Mildly limited exam due to suboptimal positioning/internal rotation of the humerus. 2. Supraspinatus tendon is intact without definitive tear. There is thickening and hyperintensity distal tendon consistent with tendinopathy. There may be subtle bursal surface fraying. 3. Suspect a tiny insertional tear of the infraspinatus tendon, as well as a subtle myotendinous injury. There is a small amount of subcortical bone edema at the insertional aspect. There is tendinopathy of the tendon. 4. Subscapularis tendon demonstrates a small myotendinous tear, however is otherwise intact. There are changes of tendinopathy. 5. Grossly the glenoid labrum appears intact allowing for limitations. 6. Mild arthritic changes glenohumeral joint. There is mild osseous spurring of the inferior glenoid, possibly secondary to old injury. There is mild to moderate arthritis in the AC joint. 7. Mild subacromial/subdeltoid bursitis. Allergies No Known Allergies Allergy (Verified 10/02/24 08:18) HPI HPI OV Bilat shoulder pain: Details: Arpan is a 54-year-old gentleman with bilateral shoulder pain. He had MRIs of both shoulders and comes in today complaining mostly of right shoulder pain. He has had pain for over a year and thinks it has not do its job. 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 This often requires lifting away from his body. He states his right shoulder is bothering him to the point that he can not sleep at night and he is very frustrated by this. He has done physical therapy but not had injections. He is diabetic but his sugars are well controlled and he is not overweight. [facility] Medical History Vertigo Mixed hyperlipidemia Family History Mother Diabetes Heart disease Brother Diabetes Heart disease Social History Alcohol intake: current Comment: socially Patient Tobacco Use Status: Never used Tobacco Current occupation: rt handed Physical Exam Vital Signs: BMI result Body Mass Index 31.7 Extrem Other: On exam he has a positive Mitchell and Neer on the right with a negative empty can on the right. On the left he has a negative empty can as well with a negative Mitchell and Neer. Bilaterally his motion is 35/90/130/L5. Office Procedures Joint Inj/Aspir; Non-Pain Clin Joint Injection/Drain Details: Injected 1 mL of Decadron and 3 mL 1% lidocaine and 3 mL of 0.25% Marcaine. Site was prepped using aseptic technique. Patient tolerated the procedure well. Shoulders, Hips, Knees, Shoulder Injection Large joint 54071: Right Shoulder Coding Procedure code (CPT) selection complete Results Reviewed Results Reviewed: I personally reviewed the MR images. MRI of the right shoulder was reviewed in his notable for tendinosis and subacromial bursitis On the left he has a rent tear of the supraspinatus insertion that is not retracted and small. Assessment & Plan Assessment & Plan (1) Injury of left rotator cuff: Code(s): S46.002A - Unspecified injury of muscle(s) and tendon(s) of the rotator cuff of left shoulder, initial encounter Category: Medical Qualifiers: Encounter type: initial encounter Qualified Code(s): S46.002A - Unspecified injury of muscle(s) and tendon(s) of the rotator cuff of left shoulder, initial encounter Plan: We discussed his MRI findings in his left shoulder. I do not recommend surgery given his lack of symptoms and the very small nature of the tear on MRI. I discussed this with him. He, in addition, can not be out of work for an extended period of time so this is a non start her. (2) Bursitis of right shoulder: Code(s): M75.51 - Bursitis of right shoulder Category: Medical Plan: His right shoulder is more symptomatic than his left. His right shoulder MRI shows intact cuff. I injected his right shoulder. I reviewed the MRI with him and explained the problem relating to subacromial inflammation in his work. I recommend he continue physical therapy for a home exercise program. I recommend he engage in no heavy lifting at work and I injected his right shoulder. (3) Diabetes: Code(s): E11.9 - Type 2 diabetes mellitus without complications Category: Medical Plan: I informed him of the hyperglycemic effects of steroids. Coding Level of Care Code Est Pt Level 4 (39226) Complex EM visit Add On G2211 Diagnoses Injury of left rotator cuff, initial encounter S46.002A Encounter type: initial encounter Bursitis of right shoulder M75.51 Diabetes E11.9 CPT Codes Shoulders, Hips, Knees, - Shoulder Injection Large joint 87387: Right Shoulder ([id number])
[2024-10-02 08:19] VITALS: BMI 31.7
== END 2024-10-02 09:52 | disposition home or self-care (01) ==
LOC: HO.HOS 08:07
PROVIDERS: PCP Physician Assistant Medical; Visit Provider Orthopaedic Surgery
DX: S46.002A Unspecified injury of muscle(s) and tendon(s) of the rotator cuff of left shoulder, initial encounter (principal); M75.51 Bursitis of right shoulder; E11.9 Type 2 diabetes mellitus without complications
CPT/HCPCS: 20610; 99214

== ENCOUNTER → 2024-10-02 08:06 | Outpatient (BNVA) | payer OTHER, SELFPAY | PROVIDERS: PCP Physician Assistant Medical; Visit Provider Orthopaedic Surgery | DX: M75.51 Bursitis of right shoulder (principal); S46.002D Unspecified injury of muscle(s) and tendon(s) of the rotator cuff of left shoulder, subsequent encounter; E11.9 Type 2 diabetes mellitus without complications | CPT/HCPCS: 20610; 99212; J0665; J1100; J2003 ==

== ENCOUNTER 2024-11-11 09:50 | Outpatient (RCR) | payer OTHER, SELFPAY ==
--- NOTE | 2024-11-10 15:27 | MHC.PT.EP ---
[facility] [place] Office [place] [facility] [place] Office [address] Teofilo Marx [address] [phone] F: [phone] F: [phone] F: [phone] F: [phone] Physical Therapy Plan of Care Date of Evaluation: 11/06/24 Date of Surgery: Diagnosis: PT eval and treat: M75.51 Bursitis of R shoulder, S46. 002A Unspecified injury of muscle(s) and tendon(s) of the rotator cuff of the left shoulder, initial encounter, bursitis of right shoulder, *injury of left rotator cuff, home exercise program for scapular stabilization, posterior chain strengthening and core strengthening signed by Dr. Daniel 10/07/24 Assessment: Pt is a RHD 54 y/o Divehi speaking male, referred to PT for treatment of PT eval and treat: M75.51 Bursitis of R shoulder, S46. 002A Unspecified injury of muscle(s) and tendon(s) of the rotator cuff of the left shoulder, initial encounter, bursitis of right shoulder, *injury of left rotator cuff, home exercise program for scapular stabilization, posterior chain strengthening and core strengthening signed by Dr. Daniel 10/07/24. 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 Pt exhibits impaired AROM/AAROM, decreased strength, impaired tolerance for lifting/reaching/dressing, and report of severe pain which keeps him awake at night. Pt will benefit from attending skilled PT services at a frequency of 1-2x/week x 4 weeks to address listed goals. Pt reports history of past PT from 05/19-07/19 x 10 visits for treatment of neck pain/myofascial pain with worsening pain and was ultimately sent back to orthopedics at that time. Frequency and Duration: The patient will be seen 1-2x/week Short Term Goals: 1. AAROM> AROM L>R shoulder flexion to 140 degrees. 2. AAROM>AROM L>R shoulder abduction 130 degrees. 3. Initiate self care management/HEP program. 4. Improve scapular strength to 4/5. 5. Pt will demonstrate good body mechanics for ADLS/IADLs in regard to R>L shoulder. Mcfp Goals: 1. I HEP. 2. Pt will demonstrate AAROM>AROM of the R>L shoulder. 3. SPADI score improvement by 25%. 4. Pt will demonstrate good body mechanics for R>L shoulder 3:3 trials. Treatment Plan: Modalities to reduce pain, spasms and effusion. Manual therapy to restore motion and function. Therapeutic exercise to improve strength and flexibility. Neuromuscular re-education for posture and balance. Therapeutic activities to return to functional activities of daily living. Electronically signed by: Rosa Torrez, PT, DPT Please sign and return to therapist. Thank you for your referral.
== END 2025-01-13 07:19 | disposition home or self-care (01) ==
LOC: HO.PTS 09:50
PROVIDERS: Visit Provider Orthopaedic Surgery
DX: M75.51 Bursitis of right shoulder (principal); S46.002D Unspecified injury of muscle(s) and tendon(s) of the rotator cuff of left shoulder, subsequent encounter
CPT/HCPCS: 97014; 97110; 97161; 97535

== ENCOUNTER 2024-11-13 12:03 | Outpatient (AMB) | payer OTHER, SELFPAY ==
--- NOTE | 2024-11-13 12:14 | A.OFFVIS_ITS ---
Intake Visit Reasons: OV- B/l shoulder pain 6wk f/u Intake Note: Arpan is a 54 year old right hand dominant male who presents today for a follow up of his bilateral shoulder pain. At his last visit we discussed that he has a small tear in the left shoulder but no surgical intervention is warranted due to lack of symptoms and inability to take time off of work. The right shoulder, which is worse than the left has an intact RTC and pain is relating to subacromial inflammation - the shoulder was injected & was Physical Therapy was ordered. Patient reports that the injection was not helpful. Allergies No Known Allergies Allergy (Verified 10/02/24 08:18) HPI HPI OV- B/l shoulder pain 6wk f/u: Details: Arpan is a 54 year old right hand dominant male who presents today for a follow up of his bilateral shoulder pain. At his last visit we discussed that he has a small tear in the left shoulder but no surgical intervention is warranted due to lack of symptoms and inability to take time off of work. The right shoulder, which is worse than the left has an intact RTC and pain is relating to subacromial inflammation - the shoulder was injected & was Physical Therapy was ordered. Patient reports that the injection was not helpful. [facility] Medical History Vertigo Mixed hyperlipidemia Family History Mother Diabetes Heart disease Brother Diabetes Heart disease Social History Alcohol intake: current Comment: socially Patient Tobacco Use Status: Never used Tobacco Current occupation: rt handed Physical Exam Extrem Other: On exam and brought fail has a positive impingement test (Mitchell and Toribio) bilaterally. There is very mild weakness (4+/5 )left shoulder compared to right (5/5). He has full range of motion. Negative lift-off. 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 He presents with bilateral shoulder pain. This is mostly at night and with ac tivity in his subdeltoid distribution. Both of his MRIs have a similar appearance with a rim rent type tear pattern left greater than right. This is partial-thickness at worse. Injections and therapy have not helped him but he states he can not tolerate time off from work for financial reasons. I discussed treatment options with him which include continue therapy, activity modification, biologic injections in the injury site and surgery. He is pretty adamant that he can undergo surgery at this time. I think there is a slight risk of progression on the left if he continues to push through pain but I do not think that risk is high. I think the elephant in the room is his repetitive heavy lifting at work. I do not know how to help him with this. I told him as much. My recommended a referral to pain management for consideration of PRP although I think this is cost prohibitive for him. Other options may include nerve stimulation. He can see me back as needed. (2) Incomplete tear of right rotator cuff: Code(s): M75.111 - Incomplete rotator cuff tear or rupture of right shoulder, not specified as traumatic Category: Medical Plan: See above Orders: Referrals Pain Management Referral M75.111 - Incomplete rotator cuff tear or rupture of right shoulder, not specified as traumatic, M75.112 - Incomplete rotator cuff t ear or rupture of left shoulder, not specified as traumatic Coding Level of Care Code Est Pt Level 4 (94397) Diagnoses Incomplete tear of left rotator cuff M75.112 Incomplete tear of right rotator cuff M75.111
--- OUTSIDE RECORDS SUMMARY | 2024-11-13 12:26 | XMS_ITS | Clinical Summary ---
Author Organization [facility] Address [address] [place] [id number] Phone Care Team Providers Care Professor Of Genetics Name Role Phone Lasha Ramos Primary Care Provider [phone] Social History Tobacco Use Types Packs/Day Years [...] Vaccine (2023-2 5 season) 2024 Influenza Vaccine (Season Ended) 2025 HIB Vaccines Aged Out No longer eligi [...] age to complete this topic Care Teams Professor Of Genetics Relationship Specialty Start Date End Date Lasha Ramos PA [address] [place] [address] PCP - General 03/29/22
== END 2024-11-13 12:28 | disposition home or self-care (01) ==
LOC: HO.HOS 12:03
PROVIDERS: PCP Physician Assistant Medical; Visit Provider Orthopaedic Surgery
DX: M75.112 Incomplete rotator cuff tear or rupture of left shoulder, not specified as traumatic (principal); M75.111 Incomplete rotator cuff tear or rupture of right shoulder, not specified as traumatic
CPT/HCPCS: 99214

== ENCOUNTER → 2024-11-13 12:03 | Outpatient (BNVA) | payer OTHER, SELFPAY | PROVIDERS: PCP Physician Assistant Medical; Visit Provider Orthopaedic Surgery | DX: M75.112 Incomplete rotator cuff tear or rupture of left shoulder, not specified as traumatic (principal) | CPT/HCPCS: 99212 ==

== ENCOUNTER 2024-11-24 12:06 | Outpatient (AMB) | payer OTHER, SELFPAY ==
--- NOTE | 2024-11-24 12:07 | MHC.OFFVIS ---
Vital Signs 11/24/24 12:16 Height 5 ft 9 in Weight 215 lb BMI 31.7 BP 185/98 H Blood Pressure Location Lt brachial Position Sitting Respiration 16 Pulse 87 Pulse Source Pulse Oximeter Pulse Oximetry (%) 97 Oxygen Delivery Method Room Air Intake Visit Reasons: rotator cuff tear or rupture of right shoulder Cash Processor Required: No Allergies No Known Allergies Allergy (Verified 11/24/24 12:17) Medication List - Last Reconciled 11/24/24 by Roro Ocampo LPN atorvastatin 40 mg PO DAILY cyclobenzaprine 5 mg PO BEDTIME PRN diclofenac sodium 1% 2 grams topical BID empagliflozin (Jardiance) 25 mg PO DAILY glipizide 5 mg PO BID lisinopril-hydrochlorothiazide 20-25 mg 1 tab PO DAILY naproxen 500 mg PO BID PRN pioglitazone 30 mg PO DAILY HPI HPI rotator cuff tear or rupture of right shoulder: Details: History of Present Illness The patient is a 54-year-old male presenting with chronic bilateral shoulder pain, persisting for 7 months. He describes the pain as stabbing, constant, and rated 8/10 in intensity, exacerbating at night and disrupting sleep. The pain has progressively worsened, impacting his ability to perform daily activities like driving and work, where he performs setups and lifting tasks. He reports having attempted physical therapy and previously received an injection in September, with limited symptomatic improvement. The patient?s employment is physically demanding, further aggravating the condition. The option of platelet-rich plasma (PRP) injections has been discussed, but financial implications and lack of insurance coverage have hindered this intervention. Pain Description - Onset: 7 months prior - Quality: Stabbing, constant - Intensity: 8/10 - Primary Location: Bilateral shoulders - Exacerbating Factors: Nighttime, physical activities like lifting, driving, using the right hand frequently - Relieving Factors: Repositioning - Interferences: Sleep, daily activities, driving Physical Exam - Musculoskeletal- Limited range of motion in both shoulders; reproducing pain at movement beyond shoulder level bilaterally. Results Pain Management - Affect: Pain impacts the patient's ability to sleep and perform daily functions, contributing to fatigue. - Analgesia: Corticosteroid injection previously administered with limited relief. - Adverse Effects: No specific adverse effects from treatment documented. - Activities of Daily Living: Significant limitations in performing tasks, driving, personal care due to pain. - Aberrant Drug-Related Behaviors: None reported. [facility] Medical History Vertigo Mixed hyperlipidemia Family History Mother Diabetes Heart disease Brother Diabetes Heart disease Social History Alcohol intake: current Comment: socially Patient Tobacco Use Status: Never used Tobacco Current occupation: rt handed Physical Exam Vital Signs: Last Vital Signs Pulse 87 11/24/24 12:16 Resp 16 11/24/24 12:16 BP 185/98 H 11/24/24 12:16 Pulse Ox 97 11/24/24 12:16 Oxygen Delivery Method Room Air 11/24/24 12:16 BMI result Body Mass Index 31.7 Assessment & Plan Assessment & Plan (1) Rotator cuff tear: Code(s): M75.100 - Unspecified rotator cuff tear or rupture of unspecified shoulder, not specified as traumatic Category: Medical Qualifiers: Rotator cuff tear extent: incomplete Rotator cuff tear trauma status: nontraumatic Laterality: left Qualified Code(s): M75.112 - Incomplete rotator cuff tear or rupture of left shoulder, not specified as traumatic (2) Shoulder pain: Code(s): M25.519 - Pain in unspecified shoulder Category: Medical Qualifiers: Chronicity: acute Laterality: bilateral Qualified Code(s): M25.511 - Pain in right shoulder; M25.512 - Pain in left shoulder Plan Plan - Repeat right shoulder subacromial bursal injection under ultrasound in two weeks. - Maintain minimum two-month interval between corticosteroid injections. - Discussed PRP as a cost-intensive option if current management is inadequate; patient unable to afford at this time. Patient was informed and verbally consented to the use of an ambient scribe for clinic note documentation during this visit. Discussion Notes I discussed with the patient the ongoing challenge of chronic bilateral shoulder pain and its impact on daily activities. We reviewed the patient's history of limited relief from previous corticosteroid injections and the need to avoid excessive steroid use to prevent adverse joint effects. Platelet-Rich Plasma (PRP) injections were introduced as an alternative; however, the patient expressed financial constraints due to lack of insurance coverage. For immediate management, we planned a right shoulder injection in two weeks. I emphasized the importance of maintaining a two-month interval between corticosteroid injections to optimize efficacy and minimize risks. The patient understands the follow-up protocol and has consented to the treatment plan. Patient Instructions - Schedule an injection for the right shoulder in two weeks. - Avoid activities that exacerbate shoulder pain. - Follow up on the scheduled appointment for the procedure. - Consider financial options if exploring PRP treatments in the future. Coding Level of Care Code New Pt Level 3 (88641) Diagnoses Nontraumatic incomplete tear of left rotator cuff M75.112 Rotator cuff tear extent: incomplete Rotator cuff tear trauma status: nontraumatic Laterality: left Acute pain of both shoulders M25.511; M25.512 Chronicity: acute Laterality: bilateral
[2024-11-24 12:16] VITALS: BP 185/98; PULSE 87; RESP 16; O2SAT 97; BMI 31.7
== END 2024-11-24 12:29 | disposition home or self-care (01) ==
LOC: HO.PMC 12:06
PROVIDERS: PCP Physician Assistant Medical; Referring Provider Orthopaedic Surgery; Visit Provider Internal Medicine
DX: M75.112 Incomplete rotator cuff tear or rupture of left shoulder, not specified as traumatic (principal); M25.511 Pain in right shoulder; M25.512 Pain in left shoulder
CPT/HCPCS: 99203

== ENCOUNTER → 2024-11-24 12:06 | Outpatient (BNVA) | payer OTHER, SELFPAY | PROVIDERS: PCP Physician Assistant Medical; Referring Provider Orthopaedic Surgery; Visit Provider Internal Medicine | DX: M75.112 Incomplete rotator cuff tear or rupture of left shoulder, not specified as traumatic (principal); M25.511 Pain in right shoulder | CPT/HCPCS: 99202 ==

== ENCOUNTER 2024-12-08 10:03 | Outpatient (AMB) | payer OTHER, SELFPAY ==
--- NOTE | 2024-12-08 10:09 | A.OFFVIS_ITS ---
Intake Visit Reasons: Right Shoulder Inj. Security Public Safety Officer Required: No Accompanied by: Life Partner Allergies No Known Allergies Allergy (Verified 12/08/24 10:09) HPI HPI Right Shoulder Inj.: Details: History of Present Illness The patient is a 54-year-old male presenting with right shoulder subacromial bursa injection. He has been diagnosed with right shoulder subacromial bursitis and has experienced persistent pain and discomfort in the affected shoulder. The condition has interfered with his daily activities, necessitating medical intervention. The current visit is focused on addressing this chronic issue through a targeted injection to mitigate inflammation and pain. Pain Description - Pain located in the right shoulder. - Chronic in nature due to subacromial bursitis. - Interferes with daily activities. - Previous treatments not detailed but aim to alleviate pain and inflammation. Physical Exam - Musculoskeletal- Right shoulder prepared for injection with anesthesia and ultrasound guidance. Results Pain Management - Affect: No specific impacts on mood or psychological wellbeing discussed. - Analgesia: Injection of 40 mg of Kenalog mixed with ropivacaine 0.25%. - Adverse Effects: No side effects from the discussed injection noted during the visit. - Activities of Daily Living: Pain in the shoulder has impacted daily functioning. - Aberrant Drug Related Behaviors: No aberrant behaviors discussed. Procedure - Right shoulder subacromial bursa injection. - Informed consent obtained. - Patient was positioned sitting. - Used a 25-gauge needle. - Skin numbed with ethochloride spray. - Needle advanced under ultrasound guidance using in plane technique. - Injected 40 mg of Kenalog mixed with ropivacaine 0.25%. - Procedure was completed without injection pain. US image saved to the patient's record. - Patient tolerated the procedure well. [facility] Medical History Vertigo Mixed hyperlipidemia Family History Mother Diabetes Heart disease Brother Diabetes Heart disease Social History Alcohol intake: current Comment: socially Patient Tobacco Use Status: Never used Tobacco Current occupation: rt handed Assessment & Plan Assessment & Plan (1) Rotator cuff injury: Code(s): S46.009A - Unspecified injury of muscle(s) and tendon(s) of the rotator cuff of unspecified shoulder, initial encounter Category: Medical Qualifiers: Encounter type: initial encounter Laterality: right Qualified Code(s): S46.001A - Unspecified injury of muscle(s) and tendon(s) of the rotator cuff of right shoulder, initial encounter (2) Incomplete tear of left rotator cuff: Code(s): M75.112 - Incomplete rotator cuff tear or rupture of left shoulder, not specified as traumatic Category: Medical (3) Shoulder pain: Code(s): M25.519 - Pain in unspecified shoulder Category: Medical Qualifiers: Chronicity: acute Laterality: bilateral Qualified Code(s): M25.511 - Pain in right shoulder; M25.512 - Pain in left shoulder Plan Plan - Administered right shoulder subacromial bursa injection. - Patient consented to the procedure involving Kenalog and ropivacaine. - Follow up as needed for repeat injections depending on symptomatology. Patient was informed and verbally consented to the use of an ambient scribe for clinic note documentation during this visit. Discussion Notes I discussed the procedure details, including the potential risks and benefits, with the patient. We focused on how the injection of Kenalog mixed with ropivacaine would help alleviate inflammation and pain in the subacromial bursa. The patient was informed of the potential need for future injections and agreed to follow up as necessary. Consent was obtained for the current procedure, and no immediate adverse effects were anticipated or noted. The patient was advised to monitor symptoms and return if needed for subsequent treatments. Patient Instructions - Monitor shoulder for changes in pain or improvement. - Return for follow-up if symptoms persist or worsen. - Rest the shoulder and avoid strenuous activities for a few days. - Follow guidelines for any potential repeat injections if necessary. Coding Level of Care Code Procedure Only Diagnoses Injury of right rotator cuff, initial encounter S46.001A Encounter type: initial encounter Laterality: right Incomplete tear of left rotator cuff M75.112 Acute pain of both shoulders M25.511; M25.512 Chronicity: acute Laterality: bilateral
--- OUTSIDE RECORDS SUMMARY | 2024-12-08 11:09 | XMS_ITS ---
Author Organization [facility] Address [address] [place] [address] Care Team Providers Care Sample Carrier Name Role Phone Lasha Ramos PA-C Primary Care Provider [id number] [facility] Program Status:Enrolled (Active) Start date:05/15/2022 Enrollment date:05/15/2022 Case Team Name Relationship Phone Chuck Flynn PharmD(Responsible S taff) [phone] Continued Care and Services Coordination
== END 2024-12-08 10:16 | disposition home or self-care (01) ==
LOC: HO.PMC 10:04
PROVIDERS: PCP Physician Assistant Medical; Visit Provider Internal Medicine
DX: M25.511 Pain in right shoulder (principal); S46.001A Unspecified injury of muscle(s) and tendon(s) of the rotator cuff of right shoulder, initial encounter
CPT/HCPCS: 20611

== ENCOUNTER → 2024-12-08 10:03 | Outpatient (BNVA) | payer OTHER, SELFPAY | PROVIDERS: PCP Physician Assistant Medical; Visit Provider Internal Medicine | DX: M25.511 Pain in right shoulder (principal); M25.512 Pain in left shoulder; M75.112 Incomplete rotator cuff tear or rupture of left shoulder, not specified as traumatic; S46.001A Unspecified injury of muscle(s) and tendon(s) of the rotator cuff of right shoulder, initial encounter | CPT/HCPCS: 20611; J2795; J3301 ==

== ENCOUNTER 2025-02-16 11:11 | Outpatient (AMB) | payer OTHER, SELFPAY ==
--- NOTE | 2025-02-16 11:21 | MHC.OFFVIS ---
Vital Signs 02/16/25 11:29 Height 5 ft 9 in Weight 210 lb BMI 31.0 Intake Visit Reasons: OV- B/L shoulder pain Intake Note: Arpan is a 54 year old right hand dominant male who presents today for a follow up of his Bilateral Shoulder Pain. Injections and Therapy have remained unhelpful but cannot take time off of work for financial reason. At his last visit in October he was referred to Pain Management to consider possible PRP or Nerve Stimulation. He received a subacromial injection with them on 12/08/24. patient reports that the injection did not help with the pain, he would like to discuss alternative treatment options. Allergies No Known Allergies Allergy (Verified 12/08/24 10:09) HPI HPI OV- B/L shoulder pain: Details: Arpan is a 54 year old right hand dominant male who presents today for a follow up of his Bilateral Shoulder Pain. Injections and Therapy have remained unhelpful but cannot take time off of work for financial reason. At his last visit in October he was referred to Pain Management to consider possible PRP or Nerve Stimulation. He received a subacromial injection with them on 12/08/24. Patient reports that the injection did not help with the pain, he would like to discuss alternative treatment options. He has done physical therapy. He also states that he has numbness and tingling that extends into his forearm and hand. [facility] Medical History Vertigo Mixed hyperlipidemia Family History Mother Diabetes Heart disease Brother Diabetes Heart disease Social History Alcohol intake: current Comment: socially Patient Tobacco Use Status: Never used Tobacco Current occupation: rt handed Physical Exam Vital Signs: BMI result Body Mass Index 31.0 Extrem Other: On exam and brought fail has a positive impingement test (Mitchell and Toribio) bilaterally. There is very mild weakness (4+/5 )left shoulder compared to right (5/5). He has full range of motion. Negative lift-off. Assessment & Plan Assessment & Plan (1) Cervical radiculopathy: Code(s): M54.12 - Radiculopathy, cervical region Category: Medical Plan: Patient is working light duty and should continue to do so. I have ordered an MRI of the cervical spine. He is not improving at all and has numbness and tingling in his arm. I think it is reasonable to assess his cervical spine. Orders: Orders MR cervical spine wo con Today M54.12 - Radiculopathy, cervical region Coding Level of Care Code Est Pt Level 4 (04622) Diagnoses Cervical radiculopathy M54.12
[2025-02-16 11:29] VITALS: BMI 31.0
--- OUTSIDE RECORDS SUMMARY | 2025-02-16 12:33 | XMS_ITS | Clinical Summary ---
Author Organization [facility] Address [address] [place] [phone] Phone Care Team Providers Care Motor Pool Clerk Name Role Phone Lasha Ramos Primary Care Provider [phone] Social History Tobacco Use Types Packs/Day Years [...] Panel) 12/19/2022 Colorectal Cancer Screening: Colonoscopy 12/19/2022 HIV Screening 12/19/2022 Hepatitis C Screening 12/19/2022 Social Influencers of Health Screening 12/19/2022 COVID-19 Vaccine (1 - 2023-2 5 season) 2024 Depression Screening 06/25/2024 Influenza Vaccine (#1) 2025 HIB Vaccines Aged Out No longer [...] age to complete this topic Care Teams Motor Pool Clerk Relationship Specialty Start Date End Date Lasha Ramos PA [address] [place] [address] PCP - General 03/29/22
--- OUTSIDE RECORDS SUMMARY | 2025-02-16 12:33 | XMS_ITS ---
Author Organization [facility] Address [address] [place] [address] Care Team Providers Care Skin Diver Name Role Phone Lasha Ramos PA-C Primary Care Provider [id number] [facility] Program Status:Enrolled (Active) Start date:05/15/2022 Enrollment date:05/15/2022 Case Team Name Relationship Phone Chuck Flynn PharmD(Responsible S taff) [phone] Continued Care and Services Coordination
== END 2025-02-16 11:44 | disposition home or self-care (01) ==
LOC: HO.HOS 11:12
PROVIDERS: PCP Physician Assistant Medical; Visit Provider Orthopaedic Surgery
DX: M54.12 Radiculopathy, cervical region (principal)
CPT/HCPCS: 99213

== ENCOUNTER → 2025-02-16 11:11 | Outpatient (BNVA) | payer OTHER, SELFPAY | PROVIDERS: PCP Physician Assistant Medical; Visit Provider Orthopaedic Surgery | DX: M25.511 Pain in right shoulder (principal); M25.512 Pain in left shoulder; M54.12 Radiculopathy, cervical region | CPT/HCPCS: 99212 ==

== ENCOUNTER 2025-03-27 18:53 | Outpatient (REF) | payer OTHER, SELFPAY ==
--- OUTSIDE RECORDS SUMMARY | 2025-03-26 10:40 | XMS_ITS | Encounter Summary ---
Author Organization [facility] Address [address] [place] [address] Care Team Providers Care Clam Shovel Operator Name Role Phone Lasha Ramos PA-C Primary Care Provider + [phone] Reason for Visit * Reason Comments Follow Up Diabetes Mellitus Encounter Details Date Type Department Care Team ([facility] st Contact Info) Description 03/26/2025 10:40 AM EDT Office Visit [facility] [address] [place] [address] Chuck Dumont, PharmD [address] [place] [address] Social History Tobacco Use Types Packs/Day Years Used Date Smoking Tobacco: Never Passive Smoke Exposure: Never Smokeless Tobacco: Never Tobacco Cessation:Counseling Given: Yes Alcohol Use Standard Drinks/Week Comments Yes 0 (1 standard drink = 0.6 oz pur e alcohol) special occasions Social Connections Answer Date Recorded How often do you feel lonely or isolated from th ose around you? 1 06/11/2024 Financial Resource Strain Answer Date R ecorded Hard to pay for: Food 1 06/11/2024 Stress Answer Date Recorded Do you feel these kinds of stress these days? 1 06/11/2024 Physical Activity Answer Date Recorded Physical Activity 0 02/16/2019 Food Insecurity Answer Date Recorded Hard to pay for: Food 1 06/11/2024 Transportation Needs Answer Date Record ed Hard to pay for: Transportation 1 06/11/2024 Housing Stability Answer Date Recorded Hard to pay for: Rent/Mortgage payment 1 06/11/2024 Safety and Environment Answer Date Yoav rded Safety 0 04/24/2023 Utilities Answer Date Recorded Hard to pay for: Utilities 1 06/11 Employment Answer Date Recorded Stress 0 03/22/2022 Sex and Gender Information Value Date Recorded Sex Assigned at Male 06/08/2017 11:19 AM PST Legal Sex Male 6:32 AM PDT Gender Identity Male 06/08/2017 11:19 AM PST Sexual Orientation Straight 06/08/2017 11 :19 AM PST documented as of this encounter Last Filed Vital Signs Vital Sign Reading Time Taken Comments Blood Pressure 140/92 03/26/2025 5:42 PM EDT Pulse 82 03/26/2025 10:40 AM EDT Temperature 36.8 C (98.3 F) 03/26/2025 10:40 AM EDT Respiratory Rate 16 03/26/2025 10:40 AM EDT Oxygen Saturation 99% 03/26/2025 10:40 AM EDT Inhaled Oxygen Concentration - - Weight 96.8 kg (213 lb 8 oz) 03/26/2025 10:40 AM EDT Height 180.3 cm (5' 11 ) 03/26/2025 10:40 AM EDT Body Mass Index 29.78 03/26/2025 10:40 AM EDT documented in this encounter Progress Notes * Chuck Flynn PharmD - 03/26/2025 10:47 AM EDT Arpan Leach is a 54 year old, Jamaican-speaking male who presents today for a follow-up visit in Diabetes Clinic with Chuck Morrissey PharmD. Referred by Lasha Ramos PA-C. No stone mill operator needed for today's visit as provider speaks patient's familiar language. Subjective: Patient reports: Denies SMBG, states only monitoring when I feel weird . Endorses adherence to medications. BP noted to be elevated during encounter today, denies related symptoms. States that he did not take BP meds today. Updated labs outstanding, patient completed labs before coming to visit today. Polydipsia/polyphagia/polyuria? yes - polyuria Denies signs/symptoms of hypoglycemia. Changes in diet: stopped drinking soda, eating more salads and greens, reducing bread and rice intake, not following low salt diet uses seasonings with high salt content (adobo, sazon) Changes in physical activity: active at work, denies exercise outside of work New concerns: No concerns Tobacco Use: Never Smoker Alcohol Use: No alcohol use Additional OTC medications or supplements: none Specialists managing DM/HTN: None Diabetes Current Diabetes RX: glipizide XL 10 mg daily pioglitazone 45 mg daily Jardiance 25 mg daily HTN Current HTN RX: lisinopril-HCTZ 20-25 mg daily amlodipine 5 mg daily Objective: BGM Metrics: Not available, patient forgot glucometer/reader at home Allergies reviewed: No Known Allergies BP (!) 140/92 Pulse 82 Temp 98.3 ??F (36.8 ??C) Resp 16 Ht 5' 11 (1.803 m) Wt 213 lb 8 oz (96.8 kg) SpO2 99% BMI 29.78 kg/m?? Smoking Status Never BSA 2.2 m?? Estimated Creatinine Clearance: 93.4 mL/min (by C-G formula based on SCr of 1.07 mg/dL). BP (!) 140/92 at 03/26/2025 5:42 PM BP (!) 150/102 at 03/26/2025 10:40 AM BP (!) 159/81 at 02/17/2025 10:30 AM Wt Readings from Last 3 Encounters: 03/26/25 213 lb 8 oz (96.8 kg) 10/07/24 213 lb (96.6 kg) 07/01/24 212 lb 12.8 oz (96.5 kg) Lab Results Component Value Date HGBA1C 7.8 (H) 10/07/2024 HGBA1C 8.6 (H) 07/01/2024 HGBA1C 8.8 (H) 07/01/2024 Lab Results Component Value Date GLUCOSE 135 (A) 03/26/2025 EAG 137 03/20/2018 Lab Results Component Value Date URALBCREAT 36 (H) 07/25/2023 Lab Results Component Value Date NA 139 07/01/2024 K 4.1 07/01/2024 BUN 16 07/01/2024 BUNCREAT SEE NOTE: 07/01/2024 CREATININE 1.07 07/01/2024 EGFR 83 07/01/2024 Lab Results Component Value Date TSH 0.97 02/14/2021 Lab Results Component Value Date TRIGLYC 342 (H) 07/01/2024 CHOL 235 (H) 07/01/2024 HDL 40 07/01/2024 LDL 142 (H) 07/01/2024 CHOLHDL 5.9 (H) 07/01/2024 NONHDL 195 (H) 07/01/2024 The 10-year ASCVD risk score (Shira CORCORAN, et al., 2019) is: 18.9% Assessment: Diabetes: Need updated A1c, Lack of SMBG HTN: slightly uncontrolled ASCVD: Age 40-75 yo, DM, high ASCVD = high intensity statin recommended to reduce LDL by at least 50% (goal LDL <70 mg/dL) Plan: E11.65 Uncontrolled type 2 diabetes mellitus with hyperglycemia (primary encounter diagnosis) Plan : GLUCOSE, BLOOD BY GLUCOSE MONITORING DEVICE (CLIA WAIVED)POCT MICROALBUMIN/CREATININE RATIO, URINE, RANDOM PHARMACOTHERAPY for diabetes Will assess therapy with updated labs. Continue current regimen: glipizide XL 10 mg daily, pioglitazone 45 mg daily, and Jardiance 25 mg daily Counseled patient on the following diet and lifestyle modifications (weight loss, decrease carbohydrates such as rice, bread, pasta and corn meal, increase non-starchy vegetables, no potatoes or corn, and increase physical activity with at least 150 minutes of moderate physical activity per week). I10 Essential hypertension PHARMACOTHERAPY for HTN BP elevated, patient did not take medications today, possible non-adherence. Counseled patient on importance of taking medications as prescribed for BP control. Continue lisinopril-HCTZ 20-25 mg daily and amlodipine 5 mg daily E78.2 Mixed hyperlipidemia ASCVD: Per 2024 ADA guidelines for lipid management, continue high-intensity statin: atorvastatin 40 mg daily Referral: None Follow-Up: 3 months per patient request Patient agrees with plan of care and verbalizes understanding. Questions were answered. Education: Labs due (urine microalbumin/SCr ratio) - will review results and determine best therapy Medication Regimen: (indication, dosage, administration, storage, ADR, missing dose) BG testing and target Focus on consuming carbohydrates from high-fiber sources like whole grains, legumes, and fruits in controlled portions to help manage blood sugar levels, and aim to fill half your plate with non-starchy vegetables like leafy greens, broccoli, or peppers for added nutrients and fiber. Avoid sugary beverages like soda and limit sweets to special occasions, choosing healthier alternatives such as water, unsweetened tea, or low-calorie drinks to minimize blood sugar spikes Incorporate at least 150 minutes of moderate physical activity per week, such as brisk walking or cycling, to improve insulin sensitivity, enhance glucose control, and support overall cardiovascular health. Sign / Symptoms of Hyperglycemia / Hypoglycemia Hypoglycemia Treatment (Rule 15) Automatic Tire Tester Complications Uncontrolled Diabetes Chuck Morrissey PharmD documented in this encounter Miscellaneous Notes * Patient Instructions - Chuck Flynn PharmD - 03/26/2025 10:58 AM EDT If you are not able to keep your appointment please call 24-48 hours before your appointment to cancel or reschedule. Chuck Morrissey PharmD, BCACP MTM/Clinical Pharmacist ext. [phone] documented in this encounter Plan of Treatment Scheduled Orders Name Type Priority Associated Diagnoses Orde r Schedule MICROALBUMIN/CREATININE RATIO, URINE, RANDOM Urine Routine Lab Routine Uncontrolled type 2 diabetes mellitus with hyperglycemia ([facility]) Ordered: 03/26/2025 documented as of this encounter Goals Goal Patient Goal Type Associated Problems Recent Progress Patient-Stated? Author Blood Pressure < 130/80 Blood Pressure 140/92(2024 5:42 PM EDT) No Mariposa Pruett RN Hypertension: Decrease sodium intake General On track( 022 1:42 PM PST) No Chuck Dumont PharmD documented as of this encounter Procedures Procedure Name Priority Date/Time Associated Diagnosis Comments GLUCOSE, BLOOD BY GLUCOSE MONITORING DEVICE (CLIA WAIVED)POCT Routine 03/26/2025 5:50 PM EDT Uncontrolled type 2 diabetes mellitus with hyperglycemia documented in this encounter Results * (ABNORMAL) GLUCOSE, BLOOD BY GLUCOSE MONITORING DEVICE (CLIA WAIVED)POCT Routine (03/26/2025 5:50 PM EDT) GLUCOSE 135(A) 70 - 100 mg/dL [facility] POCT Capillary Blood Blood / Unknown 5 5:50 PM EDT Chuck Flynn PharmD LAB - BLOOD D RAW Final Result [facility] POCT documented in this encounter Visit Diagnoses Diagnosis Uncontrolled type 2 diabetes mellitus with hyperglycemia- Primary Essential hypertension Mixed hyperlipidemia documented in this encounter Additional Health Concerns Assessment Noted Time PHQ-9 Depression Total Score: 0 03/05/20 25 8:47 AM PDT A Depression follow-up plan has been documented for the patient 01/30/2023 9:10 AM PDT documented as of this encounter Care Teams Clam Shovel Operator Relationship Specialty Start Date End Date Lasha Ramos PA-C [address] [place] [address] PCP - General [facility] 02/14/21 documented as of this encounter
--- NOTE | ~2025-03-27 | MR_ITS ---
EXAMINATION: MR CERVICAL SPINE WITHOUT IV CONTRAST History: M54.12 - Radiculopathy, cervical region Technique: Sagittal T1, T2 and STIR, bilateral sagittal oblique T2, and axial T1, T2 and gradient echo images of the cervical spine were obtained per departmental protocol. Comparison: There are no prior studies available for comparison. Findings: The vertebral bodies maintain normal height, alignment, and marrow signal intensity. There is mild degenerative disc disease with disc desiccation and osteophyte formation. At C2-3, there is no evidence of disc herniation, central spinal stenosis, or neural foraminal narrowing. At C3-4, there is a mild disc bulge which partially effaces the anterior subarachnoid space. There is no central spinal or neural foraminal stenosis. At C4-5, there is no evidence of disc herniation, central spinal stenosis, or neural foraminal narrowing. At C5-6, there is no evidence of disc herniation, central spinal stenosis, or neural foraminal narrowing. At C6-7, there is a mild to moderate disc bulge. There is resultant moderate central spinal stenosis. There is mild left neural foraminal narrowing secondary to uncovertebral joint hypertrophy. At C7-T1, there is no evidence of disc herniation, central spinal stenosis, or neural foraminal narrowing. The spinal cord demonstrates normal signal intensity. The visualized paraspinal soft tissues are unremarkable. MR/MR cervical spine wo con Impression: Moderate central spinal stenosis and left neural foraminal narrowing at the C6-7 level secondary to a mild to moderate disc bulge and left uncovertebral joint hypertrophy. Electronically signed by: Oneil Munroe MD 03/30/2025 09:02 AM EDT
--- OUTSIDE RECORDS SUMMARY | 2025-03-27 18:57 | XMS_ITS | Clinical Summary ---
Author Organization [facility] Address [address] [place] [phone] Phone Care Team Providers Care Transcriber Name Role Phone Lasha Ramos Primary Care Provider [phone] Social History Tobacco Use Types Packs/Day Years Used Date Smoking Tobacco: Never Assessed Sex and Gender Information Value Date Recorded Sex Assigned at Not on file Legal Sex Male 7:02 AM EST Gender Identity Not on file Sexual Orientation Not on file Plan of Treatment Health Maintenance Due Date Last Done Comments Colorectal Cancer Screening: Colonoscopy 1970 DTaP,Tdap,and Td Vaccines (1 - Tdap) 1989 Hepatitis B Vaccines (1 of 3 - 19+ 3-dose series) 1989 Pneumococcal Vaccine: 50+ Ye ars (1 of 1 - PCV) 2020 Zoster Vaccines (1 of 2) 2020 Cholesterol Screening (Lipid Panel) 12/19/2022 HIV Screening 12/19/2022 Hepatitis C Screening 12/19/2022 Social Influencers of Health Screening 12/19/2022 Depression Screening 06/25/2024 COVID-19 Vaccine ( - 2023-2 5 season) 2025 Influenza Vaccine (#1) 2025 RSV Immunization Adult Patie nts (1 - 1-dose 75+ series) 2045 HIB Vaccines Aged Out No longer eligi [...] age to complete this topic Care Teams Transcriber Relationship Specialty Start Date End Date Lasha Ramos PA [address] [place] [address] PCP - General 03/29/22
--- OUTSIDE RECORDS SUMMARY | 2025-03-27 18:57 | XMS_ITS ---
Author Organization [facility] Address [address] [place] [address] Care Team Providers Care Front End Ui Developer Name Role Phone Lasha Ramos PA-C Primary Care Provider [phone] [facility] Program Status:Enrolled (Active) Start date:05/15/2022 Enrollment date:05/15/2022 Case Team Name Relationship Phone Chuck Flynn PharmD(Responsible S taff) [phone] Continued Care and Services Coordination
--- OUTSIDE RECORDS SUMMARY | 2025-03-27 18:57 | XMS_ITS | Clinical Summary ---
Author Organization [facility] Address [address] [place] [address] Care Team Providers Care Cartridge Maker Name Role Phone Lasha Ramos PA-C Primary [...] -Blood pressure check daily 1 Kit 1 06/06/20 17 Active blood-glucose meter monitoring kitIndications:Unc ontrolled type 2 diabetes mellitus with hyperglycemia 2 (two) times daily E 11.65 1 Each 02/16/20 21 Active lancets (FREESTYLE LANCETS) 28 gaugeIndications:U ncontrolled type 2 diabetes mellitus with hyperglycemia Use Twice a day . E 11.65 100 Each 11 04/19/20 21 Active blood sugar diagnostic (FREESTYLE TEST) stripsIndications: Uncontrolled type 2 diabetes mellitus with hyperglycemia 2 (two) times daily E 11.65 100 Each 11 04/19/20 21 Active alcohol swabsIndications:U ncontrolled type 2 diabetes mellitus with hyperglycemia Use Twice a day E 11.65 100 Each 11 04/19/20 21 Active blood pressure test kit-large Device id [id number] Monitor bp daily 1 Kit 05/15/20 22 Active hydrocortisone 2.5 % creamIndications:R adolfo Apply topically 2 (two) times daily For 2 weeks 30 g 12/05/19 24 Active ibuprofen 800 mg tabletIndications: Neck pain TAKE 1 TABLET BY MOUTH THREE TIMES A DAY NEEDED FOR PAIN 90 Tablet 1 05/19/20 24 Active diclofenac sodium (VOLTAREN) 1 % gel 10/04/19 25 Active amLODIPine (NORVASC) 5 mg tabletIndications: Essential hypertension Take 1 Tablet by mouth once daily. 90 Tablet 1 03/05/20 25 Active atorvastatin (LIPITOR) 40 mg tabletIndications: Mixed hyperlipidemia Take 1 Tablet by mouth once daily. 90 Tablet 1 03/05/20 25 Active empagliflozin (JARDIANCE) 25 mg tabIndications:Unc ontrolled type 2 diabetes mellitus with hyperglycemia Take 1 Tablet by mouth once daily. 90 Tablet 1 03/05/20 25 Active glipiZIDE (GLUCOTROL XL) 10 mg ER, 24 hour tabletIndications: Uncontrolled type 2 diabetes mellitus with hyperglycemia Take 1 Tablet by mouth once daily with breakfast. 90 Tablet 1 03/05/20 25 Active lisinopriL-hydroch lorothiazide 20-25 mg per tabletIndications: Essential hypertension Take 1 Tablet by mouth once daily. 90 Tablet 1 03/05/20 25 Active pioglitazone (ACTOS) 45 mg tabletIndications: Uncontrolled type 2 diabetes mellitus with hyperglycemia Take 1 Tablet by mouth once daily. 90 Tablet 1 03/05/20 25 Active lisinopriL-hydroch lorothiazide 20-25 mg per tabletIndications: Essential hypertension Take 1 Tablet by mouth once daily 90 Tablet 1 05/07/20 24 025 Discontin ued(Reord er (E-Cancel Not Sent)) atorvastatin (LIPITOR) 40 mg tabletIndications: Mixed hyperlipidemia Take 1 Tablet by mouth once daily 90 Tablet 1 06/11/20 24 025 Discontin ued(Reord er (E-Cancel Not Sent)) amLODIPine (NORVASC) 5 mg tabletIndications: Essential hypertension Take 1 Tablet by mouth once daily 90 Tablet 1 07/01/19 25 025 Discontin ued(Reord er (E-Cancel Not Sent)) pioglitazone (ACTOS) 45 mg tabletIndications: Uncontrolled type 2 diabetes mellitus with hyperglycemia Take 1 Tablet by mouth once daily 90 Tablet 1 07/03/19 25 025 Discontin ued(Reord er (E-Cancel Not Sent)) empagliflozin (JARDIANCE) 25 mg tabIndications:Unc ontrolled type 2 diabetes mellitus with hyperglycemia Take 1 Tablet by mouth once daily for 90 days 30 Tablet 2 10/08/19 25 025 Discontin ued(Reord er (E-Cancel Not Sent)) glipiZIDE (GLUCOTROL XL) 10 mg ER, 24 hour tabletIndications: Uncontrolled type 2 diabetes mellitus with hyperglycemia Take 1 Tablet by mouth once daily with breakfast for 90 days 90 Tablet 10/08/19 25 025 Discontin ued(Reord er (E-Cancel Not Sent)) Active Problems Problem Noted Date Diagnosed Date Chronic bilateral low back pain with bilateral s ciatica 07/25/2023 Major depressive disorder, r ecurrent episode, severe with anxious distress 01/30/2023 Uncontrolled type 2 diabetes mellitus with hyper glycemia 02/15/2021 Mixed hyperlipidemia 02/15/2021 Mild episode of recurrent major depressive disor sean 07/12/2018 Vertigo 07/12/2018 Degenerative arthritis 12/17/2016 Overview (12/17/2016): noted on X ray 12/12/16 - Superior endplates of L1,L4,L5 Essential hypertension 12/02/2014 Encounters Date Type Department Care Team Description 03/26/2025 10:40 AM EDT Office Visit [facility] [address] [place] [phone] Chuck Dumont, PharmD 03/05/2025 9:00 AM EDT Telemedicine Visit [facility] [address] [place] [phone] Lasha Ramos PA-C from Last 3 Months Immunizations Immunization Administration Dates Next Due PATRIA COVID-19 VACCINE [...] Mass Index 29.78 03/26/2025 10:40 AM EDT Plan of Treatment Health Maintenance Due Date Last Done Comments Dental Prophy 1970 Retinopathy Screening 08/28/1983 Imm-Pneumococcal 50+ (1 of 2 - PCV) 1989 CT Colonography 08/28/2015 Colonoscopy 08/28/2015 Fecal DNA 08/28/2015 Flexible Sigmoidoscopy 08/28/2015 Diabetes Foot Exam 12/16/2023 12/15/2022 Urine Albumin Creatinine Rat io Screening 07/25/2024 07/25/2023 Colorectal Cancer Screening 08/05/2024 FIT/gFOBT 08/05/2024 08/05/2023, 02/16/2021 Hemoglobin A1c 01/06/2025 03/26/2025, 0410/2024, 07/01/2024, Additional history exists [id number] ( season) 2025 021 Depression Monitoring 06/04/2025 03/05/2025 , 06/11/2024, 03/12/2024, Additional history exists Annual Wellness (Adult): Indicated (All Coverage) 06/11/2025 06/11/2024, 04/24/2023, 04/19/2022, Additional history exists Anxiety Screening 06/11/2025 06/11/2024 Lipid Screening 07/01/2025 03/26/2025, 12/2024, 03/10/2024, Additional history exists Serum Creatinine 07/01/2025 03/26/2025, 12/2024, 03/10/2024, Additional history exists Dental BW 12/12/2025 12/10/2024 Dental Examination 12/12/2025 12/10/2024 Dental Perio Charting 12/12/2025 12/10/2024 Tobacco Screening 03/26/2026 03/26/2025 Dental FMX/Pano 12/12/2029 12/10/2024 Imm-DTaP/Tdap/Td (2 - Td or Tdap) 04/19/2032 022 Hepatitis C Screening Completed 02/14/2021 HIV Screening Completed 10/11/2022 Imm-Zoster, Recombinant Completed 06/11/2024, 07/25 Alcohol and Drug Screen Completed 03/05/20, 06/11/2024, 03/12/2024, Additional history exists Imm-Hepatitis B Discontinued Imm-Influenza Discontinued Goals Goal Patient Goal Type Associated Problems Recent Progress Patient-Stated? Author Blood Pressure < 130/80 Blood Pressure 140/92(2024 5:42 PM EDT) Mariposa Munguia RN Hypertension: Decrease sodium intake General On track( 022 1:42 PM PST) No Chuck Dumont PharmD Procedures Procedure Name Priority Date/Time Associated Diagnosis Comments GLUCOSE, BLOOD BY GLUCOSE MONITORING DEVICE (CLIA WAIVED)POCT Routine 03/26/2025 5:50 PM EDT Uncontrolled type 2 diabetes mellitus with hyperglycemia LIPID PANEL Routine 03/26/2025 10:27 AM EDT Essential hypertension Mixed hyperlipidemia Uncontrolled type 2 diabetes mellitus with hyperglycemia HEMOGLOBIN GLYCOSYLATED A1C Routine 03/26/2025 10:27 AM EDT Uncontrolled type 2 diabetes mellitus with hyperglycemia COMPREHENSIVE METABOLIC PANEL Routine 03/26/2025 10:27 AM EDT Essential hypertension Mixed hyperlipidemia Uncontrolled type 2 diabetes mellitus with hyperglycemia BLOOD COUNT COMPLETE AUTO&AUTO DIFRNTL WBC Routine 03/26/2025 10:27 AM EDT Essential hypertension Mixed hyperlipidemia Uncontrolled type 2 diabetes mellitus with hyperglycemia REFERRAL SCANNED DOCUMENT 02/16/2025 3:00 AM EDT INTRAORAL - COMP SERIES OF RADIOGRAPHIC IMAGES Routine 12/10/2024 11:00 AM EDT Fractured dental church with loss of material [facility] COMP ORAL EVALUATION - NEW/ESTABLISHED PATIENT Routine 12/10/2024 11:00 AM EDT [facility] Fractured dental church with loss of material FECAL GLOBIN BY IMMUNOCHEMISTRY (FIT) Routine 08/05/2023 [...] Recently Relevant to Health Maintenance Results * (ABNORMAL) GLUCOSE, BLOOD BY GLUCOSE MONITORING DEVICE (CLIA WAIVED)POCT Routine (03/26/2025 5:50 PM EDT) GLUCOSE 135(A) 70 - 100 mg/dL [facility]- BACK OFFICE POCT Capillary Blood Blood / Unknown 5:50 PM EDT Chuck Flynn PharmD LAB - BLOOD D RAW Final Result [facility]- BACK OFFICE POCT * (ABNORMAL) BLOOD COUNT COMPLETE AUTO&AUTO DIFRNTL WBC Routine (03/26/2025 10:27 AM EDT) Pathologist [facility] WHITE BLOOD CELL COUNT 7.6 3.8 - 10.8 Thousand/ uL 03/27/2025 6:21 AM [facility] RED BLOOD CELL COUNT 6.33(H) 4.20 - 5.80 Million/u L 03/27/2025 6:21 AM [facility] HEMOGLOBIN 18.2(H) 13.2 - 17.1 g/dL 03/27/2025 6:[address] [facility] HEMATOCRIT 54.7(H) 38.5 - 50.0 % 03/27/2025 6:21 AM [facility] MCV 86.4 80.0 - 100.0 fL 03/27/2025 6:21 AM [facility] MCH 28.8 27.0 - 33.0 pg 03/27/2025 6:21 AM [facility] MCHC 33.3 32.0 - 36.0 g/dL 03/27/2025 6:21 AM [employer] [facility] RDW 15.8(H) 11.0 - 15.0 % 03/27/2025 6:21 AM [facility] PLATELET COUNT CANCELED 03/27/2025 6:21 AM [facility] Comment:Result canceled by saroj alexandre. ABSOLUTE NEUTROPHILS 4,720 1,500 - 7,800 cells/uL 03/27/2025 6:21 AM [facility] ABSOLUTE LYMPHOCYTES 2,303 850 - 3,900 cells/uL 03/27/2025 6:21 AM EDT [facility] ABSOLUTE MONOCYTES 395 200 - 950 cells/uL 03/27/2025 6:[address] [facility] ABSOLUTE EOSINOPHILS 114 15 - 500 cells/uL 03/27/2025 6:21 AM EDT [facility] ABSOLUTE BASOPHILS 68 0 - 200 cells/uL 03/27/2025 6:[address] [facility] NEUTROPHILS PCT 62.1 % 6:21 AM EDT [facility] LYMPHOCYTES 30.3 % 03/27/2025 6:[address] [facility] MONOCYTES 5.2 % 03/27/2025 6:[address] [facility] EOSINOPHILS 1.5 % 03/27/2025 6:21 AM EDT [facility] BASOPHILS 0.9 % 03/27/2025 6:[address] [facility] COMMENT(S) SEE NOTE 03/27/2025 6:[address] [facility] Blood Blood / Unknown 03/26/2025 1 0:27 AM EDT 03/27/2025 4:29 AM EDT Narrative [facility] - 03/27/2025 6:24 AM EDT FASTING:YES For adults, a slight decrease in the calculated MCHC value (in the range of 30 to 32 g/dL) is most likely not clinically significant; however, it should be interpreted with caution in correlation with other red cell parameters and the patient's clinical condition. Unable to report due to significant platelet clumping. Platelet estimate appears normal. Review of peripheral smear confirms automated results. us Lasha Ramos PA-C LAB - BLOOD DRAW Final Resul t [facility] [address] [place] [address], [facility] [address] [address] * (ABNORMAL) HEMOGLOBIN GLYCOSYLATED A1C Routine (03/26/2025 10:27 AM EDT) HEMOGLOBIN A1C 8.5(H) <5.7 % 03/27/2025 3:[address] [facility] Blood Blood / Unknown 03/26/2025 1 0:27 AM EDT 03/27/2025 4:29 AM EDT Narrative [facility] - 03/27/2025 3:43 PM EDT FASTING:YES For someone without known diabetes, a hemoglobin A1c value of 6.5% or greater indicates that they may have diabetes and this should be confirmed with a follow-up test. . For someone with known diabetes, a value <7% indicates that their diabetes is well controlled and a value greater than or equal to 7% indicates suboptimal control. A1c targets should be individualized based on duration of diabetes, age, comorbid conditions, and other considerations. . Currently, no consensus exists regarding use of hemoglobin A1c for diagnosis of diabetes for children. . us Lasha Ramos PA-C LAB - BLOOD DRAW Final Resul t [facility] [address] [place] [address], [facility] [address] [address] * (ABNORMAL) LIPID PANEL Routine (03/26/2025 10:27 AM EDT) CHOLESTEROL, TOTAL 208(H) <200 mg/dL 03/27/2025 9:[address] [facility] HDL CHOLESTEROL 39(L) > OR = 40 mg/dL 03/27/2025 9:06 AM EDT [facility] TRIGLYCERIDES 184(H) <150 mg/dL 03/27/2025 9:[address] [facility] LDL-CHOLESTEROL 137(H) mg/dL (calc) 03/27/2025 9:06 AM [facility]Vrvana [facility] CHOL/HDLC RATIO 5.3(H) <5.0 (calc) 03/27/2025 9:[address] [facility] NON-HDL CHOLESTEROL 169(H) <130 mg/dL (calc) 03/27/2025 9:06 AM EDT [facility] Blood Blood / Unknown 03/26/2025 1 0:27 AM EDT 03/27/2025 7:39 AM EDT Narrative [facility] - 03/27/2025 9:08 AM EDT FASTING:YES Reference range: <100 . Desirable range <100 mg/dL for primary prevention; <70 mg/dL for patients with CHD or diabetic patients with > or = 2 CHD risk factors. . LDL-C is now calculated using the Nikki calculation, which is a validated novel method providing better accuracy than the Friedewald equation in the estimation of LDL-C. Benjamin CHRIS et al. LAYO. 2013;310(19): 2215-7824 (http://education.Springpad/faq/QAO432) For patients with diabetes plus 1 major ASCVD risk factor, treating to a non-HDL-C goal of <100 mg/dL (LDL-C of <70 mg/dL) is considered a therapeutic option. Lasha Ramos PA-C LAB - BLOOD DRAW Final Resul t [facility] [address] [place] [address], [facility] [address] [place] [phone] * (ABNORMAL) COMPREHENSIVE METABOLIC PANEL Routine (03/26/2025 10:27 AM EDT) GLUCOSE 221(H) 65 - 99 mg/dL 03/27/2025 9:[address] [facility] UREA NITROGEN (BUN) 11 7 - 25 mg/dL 03/27/2025 9:[address] [facility] CREATININE (blood) 1.01 0.70 - 1.30 mg/dL 03/27/2025 9:[address] [facility] EGFR 88 > OR = 60 mL/min/1. 73m2 03/27/2025 9:06 AM [facility] BUN/CREATININE RATIO SEE NOTE: 6 - 22 (calc) 03/27/2025 9:06 AM [facility] SODIUM 140 135 - 146 mmol/L 03/27/2025 9:06 AM [facility] POTASSIUM 4.5 3.5 - 5.3 mmol/L 03/27/2025 9:06 AM EDT [facility] CHLORIDE 105 98 - 110 mmol/L 03/27/2025 9:06 AM EDT [facility] CARBON DIOXIDE 27 20 - 32 mmol/L 03/27/2025 9:06 AM EDT [facility] CALCIUM 9.7 8.6 - 10.3 mg/dL 03/27/2025 9:06 AM EDT [facility] PROTEIN, TOTAL 7.2 6.1 - 8.1 g/dL 03/27/2025 9:06 AM EDT [facility] ALBUMIN 4.9 3.6 - 5.1 g/dL 03/27/2025 9:06 AM EDT [facility] GLOBULIN 2.3 1.9 - 3.7 g/dL (calc) 03/27/2025 9:06 AM EDT [facility] ALBUMIN/GLOBULI N RATIO 2.1 1.0 - 2.5 (calc) 03/27/2025 9:06 AM EDT [facility] BILIRUBIN, TOTAL 1.3(H) 0.2 - 1.2 mg/dL 03/27/2025 9:06 AM EDT [facility] ALKALINE PHOSPHATASE 80 35 - 144 U/L 03/27/2025 9:06 AM [facility] AST 23 10 - 35 U/L 03/27/2025 9:06 AM [employer]T [facility] ALT 40 9 - 46 U/L 03/27/2025 9:06 AM [employer]T [facility] Blood Blood / Unknown 03/26/2025 1 0:27 AM EDT 03/27/2025 7:39 AM EDT Narrative [facility] - 03/27/2025 9:08 AM EDT FASTING:YES . Fasting reference interval . For someone without known diabetes, a glucose value >125 mg/dL indicates that they may have diabetes and this should be confirmed with a follow-up test. . Not Reported: BUN and Creatinine are within reference range. . us Lasha Ramos PA-C LAB - BLOOD DRAW Final Resul t [facility] [address] [address], [facility] [address] [address] * REFERRAL SCANNED DOCUMENT (02/16/2025 3:00 AM EDT) 02/16/2025 3:00 AM EDT Lasha Ramos PA-C SCAN REFERRAL Final Result * FECAL GLOBIN BY IMMUNOCHEMISTRY (FIT) (08/05/2023 7:00 PM EST) FECAL GLOBIN BY IMMUNOCHEMISTRY See Note [facility] Comment: FECAL GLOBIN BY IMMUNOCHEMISTRY Micro Number: [id number] Test Status: Final Specimen Source: Insure (tm) fobt test card Specimen Quality: Adequate Fecal Globin: Not Detected Stool Stool specimen / Unknown 08/05/2023 7:00 PM EST 08/08/2023 4:31 AM EST Mignon NEAL LAB BODY FLUIDS AND STOOLS GILDARDO GOVEA Final Result [facility] [address] [address], [facility] [address] [address] * (ABNORMAL) MICROALBUMIN/CREATININE RATIO, URINE, RANDOM (07/25/2023 11:32 AM EST) CREATININE, RANDOM URINE 59 20 - 320 mg/dL [facility] MICROALBUMIN 2.1 mg/dL [facility] Comment: Reference Range Not established MICROALBUMIN/CREA TININE RATIO, RANDOM URINE 36(H) <30 mcg/mg creat [facility] Comment: The ADA defines abnormalities in albumin excretion as follows: Albuminuria Category Result (mcg/mg creatinine) Normal to Mildly increased <30 Moderately increased 30-299 Severely increased > OR = 300 The ADA recommends that at least two of three specimens collected within a 3-6 month period be abnormal before considering a patient to be within a diagnostic category. Urine Urine specimen / Unknown 07/25/2023 11:32 AM EST 07/25/2023 11:33 AM EST Narrative [facility] - 07/26/2023 5:35 PM EST FASTING:YES us Lasha Ramos PA-C LAB URINE AMBULATORY Final R esult [facility] [address] [address], [facility] [address] [address] * HIV 1/2 AG & AB W/RFLX (4TH GEN) (10/11/2022 10:44 AM EDT) HIV AG/AB, 4TH GEN NON-REAC TIVE NON-REAC TIVE [facility] Comment: HIV-1 antigen and HIV-1/HIV-2 antibodies were not detected. There is no laboratory evidence of HIV infection. PLEASE NOTE: This information has been disclosed to you from records whose confidentiality may be protected by state law. If your state requires such protection, then the state law prohibits you from making any further disclosure of the information without the specific written consent of the person to whom it pertains, or as otherwise permitted by law. A general authorization for the release of medical or other information is NOT sufficient for this purpose. For additional information please refer to http://education.[employer] Limited/faq/RAS443 (This link is being provided for informational/ educational purposes only.) The performance of this assay has not been clinically validated in patients less than 2 years old. Blood Blood / Unknown 10/11/2022 1 0:44 AM EDT 10/11/2022 10:45 AM EDT Narrative [facility] - 10/12/2022 6:32 AM EDT PATIENT UNABLE TO VOID; ADVISED TO RETURN FOR COLLECTION. us Lasha Ramos PA-C LAB - BLOOD DRAW Final Resul t [facility] [address] [address], [facility] [address] [address] * HEPATITIS C AB W/RFLX HCV RNA, QT, RT PCR (02/14/2021 10:54 AM EDT) HEPATITIS C ANTIBODY NON-REACT TASHA NON-REACT TASHA [facility] SIGNAL TO CUT-OFF 0.00 <1.00 [facility] Comment: HCV antibody was non-reactive. There is no laboratory evidence of HCV infection. In most cases, no further action is required. However, if recent HCV exposure is suspected, a test for HCV RNA (test code 63775) is suggested. For additional information please refer to http://education.[employer]/faq/NWH79n4 (This link is being provided for informational/ educational purposes only.) Blood Blood / Unknown 02/14/2021 1 0:54 AM EDT 02/14/2021 10:55 AM EDT Narrative [facility] - 02/15/2021 1:22 AM EDT FASTING:YES Brown Costa MD LAB - BLOOD DRAW Final Result [facility] [address] [address], [facility] [address] [address] from Last 3 Months or Most Recently Relevant to Health Maintenance Insurance [employer] Member Subscriber Plan / Payer (Ef fective 2021-Present) Name:LeachArpan broderick Relation to Subscriber:Self Name:LeachArpan broderick Payer ID:[id number] Type:[employer] Address: [facility] [address] [place] [address] [facility] [facility] Care Teams Cartridge Maker Relationship Specialty Start Date End Date Lasha Ramos PA-C [address] [place] [address] PCP - General [facility]INE[facility] 02/14/21
== END 2025-03-27 18:54 | disposition home or self-care (01) ==
LOC: HO.MRI 18:53
PROVIDERS: Visit Provider Orthopaedic Surgery
DX: M54.12 Radiculopathy, cervical region (principal)
CPT/HCPCS: 72141

== ENCOUNTER → 2025-03-27 18:58 | Outpatient (BNV) | payer OTHER, SELFPAY | PROVIDERS: Visit Provider Radiology Diagnostic Radiology | DX: M54.12 Radiculopathy, cervical region (principal); M99.61 Osseous and subluxation stenosis of intervertebral foramina of cervical region; M50.90 Cervical disc disorder, unspecified, unspecified cervical region | CPT/HCPCS: 72141 ==

== ENCOUNTER 2025-03-30 11:15 | Outpatient (AMB) | payer OTHER, SELFPAY ==
--- OUTSIDE RECORDS SUMMARY | 2025-03-26 10:40 | XMS_ITS | Encounter Summary ---
Author Organization [facility] Address [address] [place] [address] Care Team Providers Care Planning Aide Name Role Phone Lasha Ramos PA-C Primary Care Provider + [phone] Reason for Visit * Reason Comments Follow Up Diabetes Mellitus Encounter Details Date Type Department Care Team ([facility] st Contact Info) Description 03/26/2025 10:40 AM EDT Office Visit [facility] [address] [place] [address] Chuck Dumont, PharmD [address] [place] [address] Social History Tobacco Use Types Packs/Day Years [...] Arpan Leach is a 54 year old, Welsh-speaking male who presents today for a follow-up visit in Diabetes Clinic with Chuck Morrissey PharmD. Referred by Lasha Ramos PA-C. No interpreter and translator needed for today's visit as provider speaks [...] Hyperglycemia / Hypoglycemia Hypoglycemia Treatment (Rule 15) Radiology Transporter Complications Uncontrolled Diabetes Chuck Morrissey PharmD documented in this encounter Miscellaneous Notes * Patient Instructions - Chuck Flynn PharmD - 03/26/2025 10:58 AM EDT If you are not able to keep your appointment please call 24-48 hours before your appointment to cancel or reschedule. Chuck Morrissey PharmD, BCACP MTM/Clinical Pharmacist ext. [phone] documented in this encounter Plan of Treatment Scheduled Orders Name Type Priority Associated Diagnoses Orde r Schedule MICROALBUMIN/CREATININE RATIO, URINE, RANDOM Urine Routine Lab Routine Uncontrolled type 2 diabetes mellitus with hyperglycemia ([facility]) Ordered: 03/26/2025 documented as of this [...] LAB - BLOOD D RAW Final Result [facility] POCT documented in [...] documented as of this encounter Care Teams Planning Aide Relationship Specialty Start Date End Date Lasha Ramos PA-C [address] [place] [address] PCP - General [facility] [facility] 02/14/21 documented as of this encounter
--- NOTE | 2025-03-30 11:18 | A.OFFVIS_ITS ---
Intake Visit Reasons: OV- B/L shoulder pain - C Spine MRI Review Intake Note: Arpan is a 54 year old right hand dominant male who presents today for a follow up of his Bilateral Shoulder Pain. Injections and Therapy have remained unhelpful but cannot take time off of work for surgical interventions due to financial reason. He remains on light duty. An MRI was ordered for the numbness and tingling he is feeling in his arm. Impression: Moderate central spinal stenosis and left neural foraminal narrowing at the C6-7 level secondary to a mild to moderate disc bulge and left uncovertebral joint hypertrophy. Allergies No Known Allergies Allergy (Verified 12/08/24 10:09) HPI HPI OV- B/L shoulder pain - C Spine MRI Review: Details: Arpan is a 54 year old right hand dominant male who presents today for a follow up of his Bilateral Shoulder Pain. Injections and Therapy have remained unhelpful but cannot take time off of work for surgical interventions due to financial reason. He remains on light duty. An MRI was ordered for the numbness and tingling he is feeling in his arm. He also had an MRI shoulder. The shoulder a small rim tear but his pain includes numbness and tingling down his arm improved with position. Shoulder injections were not helpful at all. He is he is extremely uncomfortable and can not find a comfortable position. He states when he picks his arm over his head the numbness worsens. Complains of persistent neck and shoulder pain as well. [facility] Medical History Vertigo Mixed hyperlipidemia Family History Mother Diabetes Heart disease Brother Diabetes Heart disease Social History Alcohol intake: current Comment: socially Patient Tobacco Use Status: Never used Tobacco Current occupation: rt handed Physical Exam Exam Exam: No acute distress. Positive Mitchell and negative Neer. Painful empty can. Negative Spurling's 30/90/120/L5 Results Reviewed Results Reviewed: Impression: Moderate central spinal stenosis and left neural foraminal narrowing at the C6-7 level secondary to a mild to moderate disc bulge and left uncovertebral joint hypertrophy. Assessment & Plan Assessment & Plan (1) Cervical radiculopathy: Code(s): M54.12 - Radiculopathy, cervical region Category: Medical Plan: This is a difficult picture because he has symptoms of both cervical radiculopathy and internal derangement of the shoulder. His shoulder MRI however shows a very small RTC tear which I would trypically treat nonoperatively. I think it is reasonable to have him evaluated by the spine MDs. Injections in his shoulder were not helpful at all and his symptoms are atypical for shoulder pathology including numbness and tingling radiating down to his fingers that worsens with position. (2) Incomplete tear of right rotator cuff: Code(s): M75.111 - Incomplete rotator cuff tear or rupture of right shoulder, not specified as traumatic Category: Medical Plan: He should continue light duty and he will see me for his shoulder once we clarified a plan regarding his cervical spine. Orders: Referrals Neuro Spine Referral M54.12 - Radiculopathy, cervical region Coding Level of Care Code Est Pt Level 3 (32171) Complex EM visit Add On G2211 Diagnoses Cervical radiculopathy M54.12 Incomplete tear of right rotator cuff M75.111
--- OUTSIDE RECORDS SUMMARY | 2025-03-30 13:49 | XMS_ITS | Clinical Summary ---
Author Organization [facility] Address [address] [place] [phone] Phone Care Team Providers Care Marine Service Station Attendant Name Role Phone Lasha Ramos Primary Care Provider [phone] Social History Tobacco Use Types Packs/Day Years [...] age to complete this topic Care Teams Marine Service Station Attendant Relationship Specialty Start Date End Date Lasha Ramos PA [address] [place] [address] PCP - General 03/29/22
--- OUTSIDE RECORDS SUMMARY | 2025-03-30 13:49 | XMS_ITS | Clinical Summary ---
Author Organization [facility] Address [address] [place] [address] Care Team Providers Care Set Off Blocker Name Role Phone Lasha Ramos PA-C Primary Care Provider [phone] Source Comments PLEASE NOTE, if this patient [...] Active blood pressure test kit-large Device id [id number] Monitor bp daily 1 Kit 05/15/20 22 [...] Description 03/26/2025 10:40 AM EDT Office Visit [facility] [address] [place] [phone] Chuck Dumont, PharmD 03/05/2025 9:00 AM EDT Telemedicine Visit [facility] [address] [place] [phone] Lasha Ramos PA-C from Last 3 Months [...] 01/06/2025 03/26/2025, 0410/2024, 07/01/2024, Additional history exists [id number] ( season) 2025 021 Depression Monitoring 06/04/2025 [...] EDT) GLUCOSE 135(A) 70 - 100 mg/dL [facility] BACK OFFICE POCT Capillary Blood Blood / Unknown 5:50 PM EDT Chuck Flynn PharmD LAB - BLOOD D RAW Final Result [facility]- BACK OFFICE POCT * (ABNORMAL) BLOOD COUNT COMPLETE AUTO&AUTO DIFRNTL WBC Routine (03/26/2025 10:27 AM EDT) Pathologist [facility] WHITE BLOOD CELL COUNT 7.6 3.8 - 10.8 Thousand/ uL 03/27/2025 6:21 AM [employer] RED BLOOD CELL COUNT 6.33(H) 4.20 - 5.80 Million/u L 03/27/2025 6:21 AM [employer] HEMOGLOBIN 18.2(H) 13.2 - 17.1 g/dL 03/27/2025 6:21 AM [employer] [facility] HEMATOCRIT 54.7(H) 38.5 - 50.0 % 03/27/2025 6:21 AM [employer] [place] [employer] MCV 86.4 80.0 - 100.0 fL 03/27/2025 6:21 AM [employer] [place] [employer] MCH 28.8 27.0 - 33.0 pg 03/27/2025 6:21 AM [employer] MCHC 33.3 32.0 - 36.0 g/dL 03/27/2025 6:21 AM [employer] RDW 15.8(H) 11.0 - 15.0 % 03/27/2025 6:21 AM [employer] PLATELET COUNT CANCELED 03/27/2025 6:21 AM [employer] Comment:Result canceled by saroj alexandre. ABSOLUTE NEUTROPHILS 4,720 1,500 - 7,800 cells/uL 03/27/2025 6:21 AM [employer] ABSOLUTE LYMPHOCYTES 2,303 850 - 3,900 cells/uL 03/27/2025 6:21 AM EDT [facility] ABSOLUTE MONOCYTES 395 200 - 950 cells/uL 03/27/2025 6:21 AM EDT [employer] [facility] ABSOLUTE EOSINOPHILS 114 15 - 500 cells/uL 03/27/2025 6:21 AM EDT [facility] ABSOLUTE BASOPHILS 68 0 - 200 cells/uL 03/27/2025 6:21 AM EDT [employer] [facility] NEUTROPHILS PCT 62.1 % 6:21 AM EDT [facility] LYMPHOCYTES 30.3 % 03/27/2025 6:21 AM EDT [employer] [facility] MONOCYTES 5.2 % 03/27/2025 6:21 AM EDT [employer] [facility] EOSINOPHILS 1.5 % 03/27/2025 6:21 AM EDT [facility] BASOPHILS 0.9 % 03/27/2025 6:21 AM EDT [employer] [facility] COMMENT(S) SEE NOTE 03/27/2025 6:21 AM [employer] [facility] Blood Blood / Unknown 03/26/2025 1 0:27 AM EDT 03/27/2025 4:29 AM EDT Narrative [employer] [facility] - 03/27/2025 6:24 AM EDT FASTING:YES For [...] LAB - BLOOD DRAW Final Resul t [employer] [address] [place] [address], [employer] [address] [address] * (ABNORMAL) HEMOGLOBIN GLYCOSYLATED A1C Routine (03/26/2025 10:27 AM EDT) HEMOGLOBIN A1C 8.5(H) <5.7 % 03/27/2025 3:38 PM EDT [employer] [facility] Blood Blood / Unknown 03/26/2025 1 0:27 AM EDT 03/27/2025 4:29 AM EDT Narrative [employer] [facility] - 03/27/2025 3:43 PM EDT FASTING:YES For [...] LAB - BLOOD DRAW Final Resul t [employer] [address] [place] [address], [employer] [address] [address] * (ABNORMAL) LIPID PANEL Routine (03/26/2025 10:27 AM EDT) CHOLESTEROL, TOTAL 208(H) <200 mg/dL 03/27/2025 9:06 AM EDT [employer] [facility] HDL CHOLESTEROL 39(L) > OR = 40 mg/dL 03/27/2025 9:06 AM EDT [employer] [facility] TRIGLYCERIDES 184(H) <150 mg/dL 03/27/2025 9:06 AM EDT [employer] [facility] LDL-CHOLESTEROL 137(H) mg/dL (calc) 03/27/2025 9:06 AM [employer] [facility] CHOL/HDLC RATIO 5.3(H) <5.0 (calc) 03/27/2025 9:06 AM EDT [employer] [facility] NON-HDL CHOLESTEROL 169(H) <130 mg/dL (calc) 03/27/2025 9:06 AM EDT [employer] [facility] Blood Blood / Unknown 03/26/2025 1 0:27 AM EDT 03/27/2025 7:39 AM EDT N[employer] - 03/27/2025 9:08 AM EDT FASTING:YES [...] LDL-C. Benjamin CHRIS et al. LAYO. 2013;310(19): 4980-2074 (http://education.Tagito/faq/GBZ175) For patients with diabetes plus 1 major ASCVD risk factor, treating to a non-HDL-C goal of <100 mg/dL (LDL-C of <70 mg/dL) is considered a therapeutic option. Lasha Ramos PA-C LAB - BLOOD DRAW Final Resul t [employer] [address] [place] [address], [employer] [address] [place] [phone] * (ABNORMAL) COMPREHENSIVE METABOLIC PANEL Routine (03/26/2025 10:27 AM EDT) GLUCOSE 221(H) 65 - 99 mg/dL 03/27/2025 9:06 AM EDT [employer] [facility] UREA NITROGEN (BUN) 11 7 - 25 mg/dL 03/27/2025 9:06 AM [employer] [facility] CREATININE (blood) 1.01 0.70 - 1.30 mg/dL 03/27/2025 9:06 AM EDT [employer] [facility] EGFR 88 > OR = 60 mL/min/1. 73m2 03/27/2025 9:06 AM [employer] BUN/CREATININE RATIO SEE NOTE: 6 - 22 (calc) 03/27/2025 9:06 AM [employer] SODIUM 140 135 - 146 mmol/L 03/27/2025 9:06 AM [employer] POTASSIUM 4.5 3.5 - 5.3 mmol/L 03/27/2025 9:06 AM EDT [facility] CHLORIDE 105 98 - 110 mmol/L 03/27/2025 9:06 AM EDT [employer] [facility] CARBON DIOXIDE 27 20 - 32 mmol/L 03/27/2025 9:06 AM EDT [employer] [facility] CALCIUM 9.7 8.6 - 10.3 mg/dL 03/27/2025 9:06 AM EDT [employer] [facility] PROTEIN, TOTAL 7.2 6.1 - 8.1 g/dL 03/27/2025 9:06 AM EDT [employer] [facility] ALBUMIN 4.9 3.6 - 5.1 g/dL 03/27/2025 9:06 AM EDT [employer] [facility] GLOBULIN 2.3 1.9 - 3.7 g/dL (calc) 03/27/2025 9:06 AM EDT [employer] [facility] ALBUMIN/GLOBULI N RATIO 2.1 1.0 - 2.5 (calc) 03/27/2025 9:06 AM EDT [employer] [facility] BILIRUBIN, TOTAL 1.3(H) 0.2 - 1.2 mg/dL 03/27/2025 9:06 AM EDT [employer] [facility] ALKALINE PHOSPHATASE 80 35 - 144 U/L 03/27/2025 9:06 AM [employer] [facility] AST 23 10 - 35 U/L 03/27/2025 9:06 AM [employer] [facility] ALT 40 9 - 46 U/L 03/27/2025 9:06 AM [employer] [facility] Blood Blood / Unknown 03/26/2025 1 0:27 AM EDT 03/27/2025 7:39 AM EDT Narrative [employer] [facility] - 03/27/2025 9:08 AM EDT FASTING:YES . Fasting reference interval . For someone without known diabetes, a glucose value >125 mg/dL indicates that they may have diabetes and this should be confirmed with a follow-up test. . Not Reported: BUN and Creatinine are within reference range. . us Lasha Ramos PA-C LAB - BLOOD DRAW Final Resul t [employer] [address] [address], [employer] [address] [phone] * REFERRAL SCANNED DOCUMENT (02/16/2025 3:00 AM EDT) 02/16/2025 3:00 AM EDT Lasha Ramos PA-C SCAN REFERRAL Final Result * FECAL GLOBIN BY IMMUNOCHEMISTRY (FIT) (08/05/2023 7:00 PM EST) FECAL GLOBIN BY IMMUNOCHEMISTRY See Note [employer] [facility] Comment: FECAL GLOBIN BY IMMUNOCHEMISTRY Micro Number: [id number] Test Status: Final Specimen Source: Insure (tm) fobt test card Specimen Quality: Adequate Fecal Globin: Not Detected Stool Stool specimen / Unknown 08/05/2023 7:00 PM EST 08/08/2023 4:31 AM EST Mignon [facility] BODY FLUIDS AND STOOLS GILDARDO GOVEA Final Result [employer] [address] [address], [employer] [address] [address] * (ABNORMAL) MICROALBUMIN/CREATININE RATIO, URINE, RANDOM (07/25/2023 11:32 AM EST) CREATININE, RANDOM URINE 59 20 - 320 mg/dL [employer] [facility] MICROALBUMIN 2.1 mg/dL [employer] [facility] Comment: Reference Range Not established MICROALBUMIN/CREA TININE RATIO, RANDOM URINE 36(H) <30 mcg/mg creat [employer] [facility] Comment: The ADA defines abnormalities in [...] AM EST 07/25/2023 11:33 AM EST Narrative [employer] [facility] - 07/26/2023 5:35 PM EST FASTING:YES us Lasha Ramos PA-C LAB URINE AMBULATORY Final R esult [employer] [address] [address], [employer] [address] [address] * HIV 1/2 AG & AB W/RFLX (4TH GEN) (10/11/2022 10:44 AM EDT) HIV AG/AB, 4TH GEN NON-REAC TIVE NON-REAC TIVE [employer] [facility] Comment: HIV-1 antigen and HIV-1/HIV-2 antibodies [...] purpose. For additional information please refer to http://education.[employer]/faq/FAO720 (This link is being provided for informational/ educational purposes only.) The performance of this assay has not been clinically validated in patients less than 2 years old. Blood Blood / Unknown 10/11/2022 1 0:44 AM EDT 10/11/2022 10:45 AM EDT Narrative [employer] [facility] - 10/12/2022 6:32 AM EDT PATIENT UNABLE TO VOID; ADVISED TO RETURN FOR COLLECTION. us Lasha Ramos PA-C LAB - BLOOD DRAW Final Resul t [employer] [address] [address], [employer] [address] [address] * HEPATITIS C AB W/RFLX HCV RNA, QT, RT PCR (02/14/2021 10:54 AM EDT) HEPATITIS C ANTIBODY NON-REACT TASHA NON-REACT TASHA [facility] SIGNAL TO CUT-OFF 0.00 <1.00 [facility] Comment: HCV antibody was non-reactive. There is no laboratory evidence of HCV infection. In most cases, no further action is required. However, if recent HCV exposure is suspected, a test for HCV RNA (test code 35359) is suggested. For additional information please refer to http://education.[employer]/faq/WDP86k7 (This link is being provided for informational/ educational purposes only.) Blood Blood / Unknown 02/14/2021 1 0:54 AM EDT 02/14/2021 10:55 AM EDT Narrative [employer] - 02/15/2021 1:22 AM EDT FASTING:YES Brown Costa MD LAB - BLOOD DRAW Final Result [employer] [address] [address], [facility] [address] [address] from Last 3 Months or Most Recently Relevant to Health Maintenance Insurance edelight Member Subscriber Plan / Payer (Ef fective 2021-Present) Name:LeachArpan broderick Relation to Subscriber:Self Name:LeachArpan broderick Payer ID:[id number] Type:[employer] Address: [facility] [address] [place] [address] [employer] [facility] Care Teams Set Off Blocker Relationship Specialty Start Date End Date Lasha Ramos PA-C [address] [place] [address] PCP - General FAMILY MEDICINEVAL 02/14/21
--- OUTSIDE RECORDS SUMMARY | 2025-03-30 13:49 | XMS_ITS ---
Author Organization [facility] Address [address] [place] [address] Care Team Providers Care Chemical Equipment Controller Name Role Phone Lasha Ramos PA-C Primary Care Provider [id number] Program Status:Enrolled (Active) Start date:05/15/2022 Enrollment date:05/15/2022 Case Team Name Relationship Phone Chuck Flynn PharmD(Responsible S taff) [phone] Continued Care and Services Coordination
== END 2025-03-30 11:42 | disposition home or self-care (01) ==
LOC: HO.HOS 11:15
PROVIDERS: PCP Physician Assistant Medical; Visit Provider Orthopaedic Surgery
DX: M54.12 Radiculopathy, cervical region (principal); M75.111 Incomplete rotator cuff tear or rupture of right shoulder, not specified as traumatic
CPT/HCPCS: 99213

== ENCOUNTER → 2025-03-30 11:15 | Outpatient (BNVA) | payer OTHER, SELFPAY | PROVIDERS: PCP Physician Assistant Medical; Visit Provider Orthopaedic Surgery | DX: M54.12 Radiculopathy, cervical region (principal); M75.111 Incomplete rotator cuff tear or rupture of right shoulder, not specified as traumatic | CPT/HCPCS: 99212 ==

== ENCOUNTER 2025-04-08 10:38 | Outpatient (AMB) | payer OTHER, SELFPAY ==
[2025-04-08 11:13] VITALS: BMI 31.5
--- NOTE | 2025-04-08 11:13 | HO.SPINEOV ---
Vital Signs 04/08/25 11:13 Height 5 ft 9 in Weight 213 lb BMI 31.5 Intake Visit Reasons: cervical radiculopathy Intake Note: Mr. Leach is here today c/o Shoulder and low back pain. School Laboratory Technician Required: Yes School Laboratory Technician Language: Gas Line Installer Services: School Laboratory Technician Present School Laboratory Technician Name: Carina Betancourt [facility] Allergies No Known Allergies Allergy (Verified 04/08/25 11:14) Physical Exam Vital Signs: BMI result Body Mass Index 31.5 Assessment & Plan Assessment & Plan (1) Chronic low back pain: Code(s): M54.50 - Low back pain, unspecified; G89.29 - Other chronic pain Category: Medical (2) Cervical disc disorder: Code(s): M50.90 - Cervical disc disorder, unspecified, unspecified cervical region Category: Medical Plan Dear Dr Daniel, Thank you for referring Mr Leach to our office today. 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 I used moshgiach Carina Mcgraw to help with my visit today. The issues he has been having, he describes have been going on for probably a year. What he describes as bilateral shoulder pain that will bother him at night or when he is working. It has gotten to the point where he is having a hard time just doing simple things at work because the pain become so intense. There is a component of numbness of his hands and he does have some pain radiating down his arms, more so on the right. He underwent a workup including MRIs of his shoulders and this showed varying degrees of tendinopathy and rotator cuff issues. On top of this though, with the numbness of his hands, there was some concern there maybe overlap of cervical radiculopathy and he was sent today for an evaluation. He is very frustrated because his quality of life suffers quite a bit. He will take anti-inflammatories throughout the day but it does not really do much. He has had cortisone injections in his shoulders without much success. He also reports significant low back pain as well. He has had that worked up in the past at [facility]. He underwent physical therapy, child care center administrator and injections with no success. PMH: He is a diabetic, he tells me his A1c is usually around 7 history of high cholesterol, he has never had surgery. Diagnosis of bilateral carpal tunnel syndrome. , depression, hypertension. Social hx: Does not smoke, occasionally uses alcohol, no recreational drugs Medications: Pioglitazone, glipizide, atorvastatin and lisinopril Allergies: None Physical exam: Awake alert oriented no acute distress, he has excellent strength in his upper extremities with the exception of some mild hand weakness which I would rate as 4-5. This is present bilaterally. He has altered sensation on the palm of his hand to light touch. Positive Tinel, positive Phalen's sign. Lower extremity reflexes and strength are normal. Gait is normal. Imaging review: Cervical MRI done here at [facility] shows [id number] degenerative disc disease. There is some subtle foraminal stenosis at C6-7 but I do not see any evidence of overt nerve compression. There maybe some slight left C3-4 foraminal stenosis as well seen best on the foraminal imaging, I would rate it as [id number]. 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 While he does have some spondylosis in his cervical spine, there is nothing significant in terms of nerve compression. He had an EMG done last year showing moderate to severe bilateral carpal tunnel. I think that would explain his hand numbness and weakness nicely. We can often times he overlap between carpal tunnel and cervical radiculopathy where the 2 things can look similar. I recommended he follow up with Dr. Olvera to have carpal tunnel release done and that should help significantly with the hand pain, numbness and feelings of weakness. With regard to his right shoulder and right arm pain, I am just not seeing enough foraminal stenosis in the cervical spine that would explain the source of his symptoms. I will review with Dr. Crain to see if he has any other thoughts. The patient has been complaining of chronic back pain for years and I do not have any imaging to corroborate with his symptoms. He did have child care center administrator, injections and PT in the past at [facility]. I will order an updated MRI to see if there is anything that can be done to help that as well. Thank you for allowing us to care for your patient. The total time spent with this visit with this patient was 45 minutes reviewing history, physical exam, cervical imaging review, and implementation of treatment plan or further diagnostic testing Tavo Crain MD,PhD [facility] Orders: Orders MR lumbar spine wo con Today G89.29 - Other chronic pain, M54.50 - Low back pain, unspecified Coding Level of Care Code New Pt Level 4 (87952) Diagnoses Chronic low back pain M54.50; G89.29 Cervical disc disorder M50.90
--- OUTSIDE RECORDS SUMMARY | 2025-04-08 12:42 | XMS_ITS | Clinical Summary ---
Author Organization [facility] Address [address] [place] [address] Care Team Providers Care Plateman Name Role Phone Lasha Ramos PA-C Primary [...] Active blood pressure test kit-large Device id [id number] Monitor bp daily 1 Kit 2 Active hydrocortisone 2.5 % creamIndications:R adolfo Apply topically 2 (two) times daily For 2 weeks 30 g 4 Active ibuprofen 800 mg tabletIndications: Neck pain TAKE 1 TABLET BY MOUTH THREE TIMES A DAY NEEDED FOR PAIN 90 Tablet 1 4 Active diclofenac sodium (VOLTAREN) 1 % gel 5 Active amLODIPine (NORVASC) 5 mg tabletIndications: Essential hypertension Take 1 Tablet by mouth once daily. 90 Tablet 1 5 Active atorvastatin (LIPITOR) 40 mg tabletIndications: Mixed hyperlipidemia Take 1 Tablet by mouth once daily. 90 Tablet 1 5 Active empagliflozin (JARDIANCE) 25 mg tabIndications:Unc ontrolled type 2 diabetes mellitus with hyperglycemia Take 1 Tablet by mouth once daily. 90 Tablet 1 5 Active glipiZIDE (GLUCOTROL XL) 10 mg ER, 24 hour tabletIndications: Uncontrolled type 2 diabetes mellitus with hyperglycemia Take 1 Tablet by mouth once daily with breakfast. 90 Tablet 1 5 Active lisinopriL-hydroch lorothiazide 20-25 mg per tabletIndications: Essential hypertension Take 1 Tablet by mouth once daily. 90 Tablet 1 5 Active pioglitazone (ACTOS) 45 mg tabletIndications: Uncontrolled type 2 diabetes mellitus with hyperglycemia Take 1 Tablet by mouth once daily. 90 Tablet 1 5 Active Active Problems [...] Encounters Date Type Department Care Team Description 04/01/2025 Results Follow-Up [address] [address] Lasha Ramos PA-C 03/26/2025 10:40 AM EDT Office Visit [address] [address] Chuck Dumont PharmNisha 03/05/2025 9:00 AM EDT [facility] [address] [place] [address] Lasha Ramos PA-C from Last 3 Months [...] Cancer Screening 08/05/2024 FIT/gFOBT 08/05/2024 08/05/2023, 02/16/2021 [id number] ( season) 2025 021 Depression Monitoring 06/04/2025 03/05/2025 , 06/11/2024, 03/12/2024, Additional history exists Annual Wellness (Adult): Indicated (All Coverage) 06/11/2025 06/11/2024, 04/24/2023, 04/19/2022, Additional history exists Anxiety Screening 06/11/2025 06/11/2024 Hemoglobin A1c 06/26/2025 03/26/2025, 04/1 10/2024, 07/01/2024, Additional history exists Dental BW 12/12/2025 12/10/2024 Dental Examination 12/12/2025 12/10/2024 Dental Perio Charting 12/12/2025 12/10/2024 Lipid Screening 03/26/2026 03/26/2025, 0 12/2024, 03/10/2024, Additional history exists Serum Creatinine 03/26/2026 03/26/2025, 12/2024, 03/10/2024, Additional history exists Tobacco Screening 03/26/2026 03/26/2025 Dental FMX/Pano 12/12/2029 [...] Pressure 140/92(2024 5:42 PM EDT) No Mariposa Pruett, RN Hypertension: Decrease sodium intake General On track( 1:42 PM PST) No Chuck Dumont, Ronaldo Procedures Procedure Name Priority Date/Time Associated Diagnosis Comments LAB COLOGUARD COLON CANCER SCREEN AMB- Unsuccessful Attempt Routine 03/30/2025 12:06 PM EDT Screening for colon cancer REFERRAL SCANNED DOCUMENT 03/30/2025 3:00 AM EDT GLUCOSE, BLOOD BY GLUCOSE MONITORING DEVICE (CLIA [...] Uncontrolled type 2 diabetes mellitus with hyperglycemia OTHER ORDERS SCANNED DOCUMENT 03/09/2025 3:00 AM EDT REFERRAL SCANNED DOCUMENT 02/16/2025 3:00 AM EDT INTRAORAL - COMP SERIES OF RADIOGRAPHIC IMAGES Routine 12/10/2024 11:00 AM EDT Fractured dental jewish with loss of material Caries COMP ORAL EVALUATION - NEW/ESTABLISHED PATIENT Routine 12/10/2024 11:00 AM EDT Caries Fractured dental jewish with loss of material FECAL GLOBIN BY [...] Recently Relevant to Health Maintenance Results * Cologuard?? colon cancer screening Stool Stool Routine (03/30/2025 12:06 PM EDT) - Unsuccessful Attempt COLOGUARD RESULT Sample Could Not Be Processed 3 N/A 04/01/2025 2:44 AM EDT Metaset (CLIA #:[id number]) Comment: The Cologuard (TM) test was assigned to this specimen. The stool exceeds the allowable weight (300 grams). The patient will be contacted to initiate a new sample collection. Stool specimen (specimen) 03/30/2025 12:06 PM EDT 03/31/2025 11:23 AM EDT Lasha Ramos PA-C LAB BODY FLUIDS AND STOOLS A MBULATORY Final Result Metaset (CLIA #:[id number]) [address] [place] [address], [place] [phone] * REFERRAL SCANNED DOCUMENT (03/30/2025 3:00 AM EDT) Only the most recent of2 resultswithin the time period is included. 03/30/2025 3:00 AM EDT Lasha Ramos PA-C SCAN REFERRAL Final Result * (ABNORMAL) GLUCOSE, BLOOD BY GLUCOSE MONITORING DEVICE (CLIA WAIVED)POCT Routine (03/26/2025 5:50 PM EDT) GLUCOSE 135(A) 70 - 100 mg/dL [facility] POCT Capillary Blood Blood / Unknown 5:50 PM EDT Chuck Flynn PharmD LAB - BLOOD D RAW Final Result [facility] POCT * (ABNORMAL) BLOOD COUNT COMPLETE AUTO&AUTO DIFRNTL WBC Routine (03/26/2025 10:27 AM EDT) WHITE BLOOD CELL COUNT 7.6 3.8 - 10.8 Thousand/ uL 03/27/2025 6:21 AM [employer] [facility] RED BLOOD CELL COUNT 6.33(H) 4.20 - 5.80 Million/u L 03/27/2025 6:21 AM EDT [facility] HEMOGLOBIN 18.2(H) 13.2 - 17.1 g/dL 03/27/2025 6:21 AM [facility] HEMATOCRIT 54.7(H) 38.5 - 50.0 % 03/27/2025 6:21 AM [employer]Mob[facility] MCV 86.4 80.0 - 100.0 fL 03/27/2025 6:21 AM EDT [facility] MCH 28.8 27.0 - 33.0 pg 03/27/2025 6:21 AM [employer] MCHC 33.3 32.0 - 36.0 g/dL 03/27/2025 6:21 AM EDT [facility] RDW 15.8(H) 11.0 - 15.0 % 03/27/2025 6:21 AM EDT [facility] PLATELET COUNT CANCELED 03/27/2025 6:21 AM EDT [facility] Comment:Result canceled by saroj alexandre. ABSOLUTE NEUTROPHILS 4,720 1,500 - 7,800 cells/uL 03/27/2025 6:21 AM EDT [facility] ABSOLUTE LYMPHOCYTES 2,303 850 - 3,900 cells/uL 03/27/2025 6:21 AM EDT [facility] ABSOLUTE MONOCYTES 395 200 - 950 cells/uL 03/27/2025 6:21 AM EDT [facility] ABSOLUTE EOSINOPHILS 114 15 - 500 cells/uL 03/27/2025 6:21 AM EDT [facility] ABSOLUTE BASOPHILS 68 0 - 200 cells/uL 03/27/2025 6:21 AM EDT [facility] NEUTROPHILS PCT 62.1 % 6:21 AM EDT [facility] LYMPHOCYTES 30.3 % 03/27/2025 6:21 AM EDT [facility] MONOCYTES 5.2 % 03/27/2025 6:21 AM [facility] EOSINOPHILS 1.5 % 03/27/2025 6:21 AM [facility]Mobule BASOPHILS 0.9 % 03/27/2025 6:21 AM EDT [facility] COMMENT(S) SEE NOTE 03/27/2025 6:21 AM [facility] Blood Blood / Unknown 03/26/2025 1 0:27 AM EDT 03/27/2025 4:29 AM EDT Narrative [facility] - 03/27/2025 6:24 AM EDT FASTING:YES For [...] of peripheral smear confirms automated results. us Rosimar Ramos PA-C LAB - BLOOD DRAW Final Resul t Performing Organization Address [facility]/ZIP Co de Phone Number [employer] [address] [address], [employer] [address] [address] * (ABNORMAL) HEMOGLOBIN GLYCOSYLATED A1C Routine (03/26/2025 10:27 AM EDT) HEMOGLOBIN A1C 8.5(H) <5.7 % 03/27/2025 3:38 PM EDT [facility] Blood Blood / Unknown 03/26/2025 1 0:27 AM EDT 03/27/2025 4:29 AM EDT Narrative [facility] - 03/27/2025 3:43 PM EDT FASTING:YES For [...] DRAW Final Resul t Performing Organization Address [facility]/ZIP Co de Phone Number [employer] [address] [address], [employer] [address] [phone] * (ABNORMAL) LIPID PANEL Routine (03/26/2025 10:27 AM EDT) CHOLESTEROL, TOTAL 208(H) <200 mg/dL 03/27/2025 9:06 AM EDT [employer] [facility] HDL CHOLESTEROL 39(L) > OR = 40 mg/dL 03/27/2025 9:06 AM EDT [employer] [facility] TRIGLYCERIDES 184(H) <150 mg/dL 03/27/2025 9:06 AM EDT [employer] [facility] LDL-CHOLESTEROL 137(H) mg/dL (calc) 03/27/2025 9:06 AM EDT [employer] [facility] CHOL/HDLC RATIO 5.3(H) <5.0 (calc) 03/27/2025 9:06 AM EDT [employer] [facility] NON-HDL CHOLESTEROL 169(H) <130 mg/dL (calc) 03/27/2025 9:06 AM EDT [employer] [facility] Blood Blood / Unknown 03/26/2025 1 0:27 AM EDT 03/27/2025 7:39 AM EDT Narrative [employer] [facility] - 03/27/2025 9:08 AM EDT FASTING:YES Reference range: <100 . Desirable range <100 mg/dL for primary prevention; <70 mg/dL for patients with CHD or diabetic patients with > or = 2 CHD risk factors. . LDL-C is now calculated using the Nikki calculation, which is a validated novel method providing better accuracy than the Friedewald equation in the estimation of LDL-C. Benjamin SS et al. LAYO. 2013;310(19): 8428-2314 (http://education.Bannerman/faq/FZZ563) For patients with diabetes plus 1 major ASCVD risk factor, treating to a non-HDL-C goal of <100 mg/dL (LDL-C of <70 mg/dL) is considered a therapeutic option. us Lasha Ramos PA-C LAB - BLOOD DRAW Final Resul t [facility] [employer] [address] [address], [employer] [address] [address] * (ABNORMAL) COMPREHENSIVE METABOLIC PANEL Routine (03/26/2025 10:27 AM EDT) GLUCOSE 221(H) 65 - 99 mg/dL 03/27/2025 9:06 AM EDT [employer] [facility] UREA NITROGEN (BUN) 11 7 - 25 mg/dL 03/27/2025 9:06 AM EDT [employer] [facility] CREATININE (blood) 1.01 0.70 - 1.30 mg/dL 03/27/2025 9:06 AM EDT [employer] [facility] EGFR 88 > OR = 60 mL/min/1. 73m2 03/27/2025 9:06 AM [employer] [facility] BUN/CREATININE RATIO SEE NOTE: 6 - 22 (calc) 03/27/2025 9:06 AM [employer] [facility] SODIUM 140 135 - 146 mmol/L 03/27/2025 9:06 AM [employer] [facility] POTASSIUM 4.5 3.5 - 5.3 mmol/L 03/27/2025 9:06 AM [employer] [facility] CHLORIDE 105 98 - 110 mmol/L 03/27/2025 9:06 AM [employer] [facility] CARBON DIOXIDE 27 20 - 32 mmol/L 03/27/2025 9:06 AM [employer] CALCIUM 9.7 8.6 - 10.3 mg/dL 03/27/2025 9:06 AM [employer] [facility] PROTEIN, TOTAL 7.2 6.1 - 8.1 g/dL 03/27/2025 9:06 AM [facility] ALBUMIN 4.9 3.6 - 5.1 g/dL 03/27/2025 9:06 AM [employer] GLOBULIN 2.3 1.9 - 3.7 g/dL (calc) 03/27/2025 9:06 AM [employer] [facility] ALBUMIN/GLOBULI N RATIO 2.1 1.0 - 2.5 (calc) 03/27/2025 9:06 AM [employer] [facility] BILIRUBIN, TOTAL 1.3(H) 0.2 - 1.2 mg/dL 03/27/2025 9:06 AM [employer] [facility] ALKALINE PHOSPHATASE 80 35 - 144 U/L 03/27/2025 9:06 AM [employer] [facility] AST 23 10 - 35 U/L 03/27/2025 9:06 AM [employer] [facility] ALT 40 9 - 46 U/L 03/27/2025 9:06 AM [employer] [facility] Blood Blood / Unknown 03/26/2025 1 0:27 AM EDT 03/27/2025 7:39 AM EDT Narrative [employer] [facility] - 03/27/2025 9:08 AM EDT FASTING:YES . Fasting reference interval . For someone without known diabetes, a glucose value >125 mg/dL indicates that they may have diabetes and this should be confirmed with a follow-up test. . Not Reported: BUN and Creatinine are within reference range. . Lasha Ramos PA-C LAB - BLOOD DRAW Final Resul t Performing Organization Address [facility]/ZIP Co de Phone Number [employer] [address] [address], [employer] [address] [address] * OTHER ORDERS SCANNED DOCUMENT (03/09/2025 3:00 AM EDT) 03/09/2025 3:00 AM EDT Gilson Olmos [employer]AX REVENUE OFFICER SCAN OTHER ORDERS Final Result * FECAL GLOBIN BY IMMUNOCHEMISTRY (FIT) (08/05/2023 7:00 PM EST) FECAL GLOBIN BY IMMUNOCHEMISTRY See Note [employer] [facility] Comment: FECAL GLOBIN BY IMMUNOCHEMISTRY Micro Number: [id number] Test Status: Final Specimen Source: Insure (tm) fobt test card Specimen Quality: Adequate Fecal Globin: Not Detected Stool Stool specimen / Unknown 08/05/2023 7:00 PM EST 08/08/2023 4:31 AM EST Mignon NEAL LAB BODY FLUIDS AND STOOLS AMBU LATORY Final Result Performing Organization Address [facility] Co de Phone Number [employer] [address] [address], [employer] [address] [address] * (ABNORMAL) MICROALBUMIN/CREATININE RATIO, URINE, RANDOM (07/25/2023 11:32 AM EST) CREATININE, RANDOM URINE 59 20 - 320 mg/dL [employer] [facility] MICROALBUMIN 2.1 mg/dL [facility] [employer] [facility] Comment: Reference Range Not established MICROALBUMIN/CREA TININE RATIO, RANDOM URINE 36(H) <30 mcg/mg creat [facility] [employer] [facility] Comment: The ADA defines abnormalities in [...] AM EST 07/25/2023 11:33 AM EST Narrative [facility] - 07/26/2023 5:35 PM EST FASTING:YES Lasha Ramos PA-C LAB URINE AMBULATORY Final R esult [facility] [address] [place] [address], [employer] [address] [address] * HIV 1/2 AG & AB W/RFLX (4TH GEN) (10/11/2022 10:44 AM EDT) HIV AG/AB, 4TH GEN NON-REAC TIVE NON-REAC TIVE [employer] [facility] Comment: HIV-1 antigen and HIV-1/HIV-2 antibodies [...] purpose. For additional information please refer to http://education.H2Sonics.Janrain/faq/SVT830 (This link is being provided for informational/ educational purposes only.) The performance of this assay has not been clinically validated in patients less than 2 years old. Blood Blood / Unknown 10/11/2022 1 0:44 AM EDT 10/11/2022 10:45 AM EDT Narrative [employer] - 10/12/2022 6:32 AM EDT PATIENT UNABLE TO VOID; ADVISED TO RETURN FOR COLLECTION. Lasha Ramos PA-C LAB - BLOOD DRAW Final Resul t Performing Organization Address City/[facility]/ZIP Co de Phone Number [facility] [address] [address], [employer] [address] [address] * HEPATITIS C AB W/RFLX HCV RNA, QT, RT PCR (02/14/2021 10:54 AM EDT) HEPATITIS C ANTIBODY NON-REACT TASHA NON-REACT TASHA [facility] SIGNAL TO CUT-OFF 0.00 <1.00 [facility] Comment: HCV antibody was non-reactive. There is no laboratory evidence of HCV infection. In most cases, no further action is required. However, if recent HCV exposure is suspected, a test for HCV RNA (test code 78594) is suggested. For additional information please refer to http://education.Tsukulink/faq/BPW95f2 (This link is being provided for informational/ educational purposes only.) Blood Blood / Unknown 02/14/2021 1 0:54 AM EDT 02/14/2021 10:55 AM EDT Narrative [facility] - 02/15/2021 1:22 AM EDT FASTING:YES Brown Costa MD LAB - BLOOD DRAW Final Result Performing Organization Address [facility] Co de Phone Number [facility] [address] [address], [employer] [address] [address] from Last 3 Months or Most Recently Relevant to Health Maintenance Insurance [employer] Member Subscriber Plan / Payer (Ef fective 2021-Present) Name:Arpan Leach Relation to Subscriber:Self Name:Arpan Leach Payer ID:[id number] Type:Indemnity Address: [address] [address] [place] [address] [facility] [employer] [facility] Care Teams Plateman Relationship Specialty Start Date End Date Lasha Ramos PA-C [address] [place] [address] PCP - General FAMILY MEDICINEVAL 02/14/21
--- OUTSIDE RECORDS SUMMARY | 2025-04-08 12:42 | XMS_ITS | Encounter Summary ---
Author Organization [facility] Address [address] [place] [address] Care Team Providers Care Director Of Construction Name Role Phone Lasha Ramos PA-C Primary Care Provider + [phone] Encounter Details Date Type Department Care Team ([facility] st Contact Info) Description 04/01/2025 Results Follow-Up [facility] [address] [place] [address] Lasha Ramos PA-C [address] [place] [address] Social History Tobacco Use Types Packs/Day Years Used Date Smoking Tobacco: Never Passive Smoke Exposure: Never Smokeless Tobacco: Never Alcohol Use Standard Drinks/Week Comments Yes 0 [...] AM PST documented as of this encounter Plan of Treatment Not on file documented as of this encounter Goals Goal Patient Goal Type Associated Problems Recent Progress Patient-Stated? Author Blood Pressure < 130/80 Blood Pressure 140/92(2024 5:42 PM EDT) No Mariposa Pruett RN Hypertension: Decrease sodium intake General On track( 022 1:42 PM PST) No Chuck Dumont, HeatherD documented as of this encounter Visit Diagnoses Not on filedocumented in this encounter Additional Health Concerns Assessment Noted Time PHQ-9 Depression Total Score: 0 03/05/20 25 8:47 AM PDT A Depression follow-up plan has been documented for the patient 01/30/2023 9:10 AM PDT documented as of this encounter Care Teams Director Of Construction Relationship Specialty Start Date End Date Lasha Ramos PA-C [address] [place] [address] PCP - General FAMILY MEDICINEVAL 02/14/21 documented as of this encounter
--- OUTSIDE RECORDS SUMMARY | 2025-04-08 12:42 | XMS_ITS | Clinical Summary ---
Author Organization [facility] Address [address] [place] [phone] Phone Care Team Providers Care Feller Operator Name Role Phone Lasha Ramos Primary Care Provider Social History Tobacco Use Types Packs/Day Years [...] age to complete this topic Care Teams Feller Operator Relationship Specialty Start Date End Date Lasha Ramos PA [address] [place] [address] PCP - General 03/29/22
--- OUTSIDE RECORDS SUMMARY | 2025-04-08 12:42 | XMS_ITS ---
Author Organization [facility] Address [address] [place] [address] Care Team Providers Care Front Sight Attacher Name Role Phone Lasha Ramos PA-C Primary Care Provider [id number] [facility] Program Status:Enrolled (Active) Start date:05/15/2022 Enrollment date:05/15/2022 Case Team Name Relationship Phone Chuck Flynn PharmD(Responsible S taff) [phone] Continued Care and Services Coordination
== END 2025-04-08 12:04 | disposition home or self-care (01) ==
LOC: HO.HNS 10:39
PROVIDERS: PCP Physician Assistant Medical; Referring Provider Orthopaedic Surgery; Visit Provider Physician Assistant
DX: M54.50 Low back pain, unspecified (principal); G89.29 Other chronic pain; M50.90 Cervical disc disorder, unspecified, unspecified cervical region
CPT/HCPCS: 99204

== ENCOUNTER → 2025-04-08 10:38 | Outpatient (BNVA) | payer OTHER, SELFPAY | PROVIDERS: PCP Physician Assistant Medical; Referring Provider Orthopaedic Surgery; Visit Provider Physician Assistant | DX: M54.50 Low back pain, unspecified (principal); M50.90 Cervical disc disorder, unspecified, unspecified cervical region; G89.29 Other chronic pain | CPT/HCPCS: 99202 ==

== ENCOUNTER 2025-05-27 10:43 | Outpatient (AMB) | payer OTHER, SELFPAY ==
--- NOTE | 2025-05-27 11:09 | MHC.OFFVIS ---
Vital Signs 05/27/25 11:15 Height 5 ft 9 in Weight 213 lb BMI 31.5 Intake Visit Reasons: OV-Bilat CTS Intake Note: Arpan 54 yr old right hand dominant male who presents today for his follow up visit for his Right carpal tunnel syndrome. At his last visit he was advise to work on lowering his A1C in order to move forward with surgery. Today patient states he is not interested in surgical intervention or injection due to his diabetes, states he would like to know if there are more treatment he can try. Allergies No Known Allergies Allergy (Verified 05/27/25 11:15) HPI HPI OV-Bilat CTS: Details: Arpan is a 54 year old right hand dominant Diabetic Djiboutian speaking man who returns to discuss his carpal tunnel syndrome. He complains of numbness in the median nerve distribution bilaterally, R>L. With dense numbness, worse at night. Normal sensation to his small fingers. He says he has difficulty & weakness with gripping and holding objects. He says he is not interested in surgery or injections, and would like to discuss other treatment options He is a Diabetic, his most recent HgA1c was 8.3% on 10/10/23. He says he had bloodwork done last month but he does not know his most recent HgA1c. 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 [employer] Review of Systems Const All systems reviewed & are unremarkable except as noted in HPI and below Physical Exam Vital Signs: BMI result Body Mass Index 31.5 Const General: cooperative, healthy appearing and no acute distress Orientation/consciousness: patient oriented x3 HEENT Head: Yes normocephalic and Yes atraumatic Eyes EOM: EOMs intact bilaterally Resp Effort & Inspection: normal respiratory effort and able to speak in complete sentences Cardio Jugular venous distension: no JVD Skin General skin exam: turgor normal Rashes: no rashes Neuro General: patient oriented x3 Extrem Other: Evaluation of Bilateral Upper Extremity: The patient is alert, oriented, and in no acute distress Neuro: Dense numbness in the median nerve distribution bilaterally. Normal sensation in the ulnar nerve distribution, bilaterally. No thenar or intrinsic wasting Good APB muscle belly firing and good finger cross Vascular: Cap refill brisk ROM: He can make a fist and extend all his digits Nerve Conduction Study: IMPRESSION: 1. This is an abnormal study. 2. There is electrodiagnostic evidence for bilateral moderate-severe median neuropathy at the wrist, consistent with carpal tunnel syndrome. 3. There is no electrodiagnostic evidence for ulnar neuropathy, brachial plexopathy, or cervical radiculopathy. Raiza Travis MD, EBER 10/25/23 Psych Appearance: grossly normal Affect: normal affect Attitude: cooperative Assessment & Plan Assessment & Plan (1) Carpal tunnel syndrome on both sides: Code(s): G56.03 - Carpal tunnel syndrome, bilateral upper limbs Category: Medical (2) Diabetes: Code(s): E11.9 - Type 2 diabetes mellitus without complications Category: Medical Plan Assessment & Plan: 1. Right carpal tunnel syndrome, moderate-severe With dense numbness, worse at night This is his primary complaint today 2. Left carpal tunnel syndrome, moderate-severe With dense numbness, worse at night I educated him about this condition I had a long discussion with him concerning operative treatment options I recommend surgery I recommend surgery, but he is hesitant to proceed at this time. He would like to take time to consider his options and he wants to discuss this with his PCP. I educated him on the risks of delaying treatment, and he expressed understanding I explained the risks of his sensation not returning, but that surgery is important to maintain muscle function and preserve any sensation possible. He expressed understanding, but still declined surgery at this time. Scribed for Anali Olvera MD by Willy Gaffney, medical microbiologist, on 05/27/25 at 11:35 AM, EST. Coding Level of Care Code Est Pt Level 4 (18825) Diagnoses Carpal tunnel syndrome on both sides G56.03 Diabetes E11.9
[2025-05-27 11:15] VITALS: BMI 31.5
--- OUTSIDE RECORDS SUMMARY | 2025-05-27 12:22 | XMS_ITS | Clinical Summary ---
Author Organization [facility] Address [address] [place] [phone] Phone Care Team Providers Care Early Intervention Specialist Name Role Phone Lasha Ramos Primary Care Provider [phone] Social History Tobacco Use Types Packs/Day Years [...] Screening 12/19/2022 Depression Screening 06/25/2024 COVID-19 Vaccine (1 - 2024-2 6 season) 2025 Influenza Vaccine (#1) 2025 RSV [...] age to complete this topic Care Teams Early Intervention Specialist Relationship Specialty Start Date End Date Lasha Ramos PA [address] [place] [address] PCP - General 03/29/22
== END 2025-05-27 11:42 | disposition home or self-care (01) ==
LOC: HO.HOS 10:44
PROVIDERS: PCP Physician Assistant Medical; Visit Provider Orthopaedic Surgery
DX: G56.03 Carpal tunnel syndrome, bilateral upper limbs (principal); E11.9 Type 2 diabetes mellitus without complications
CPT/HCPCS: 99214

== ENCOUNTER → 2025-05-27 10:43 | Outpatient (BNVA) | payer OTHER, SELFPAY | PROVIDERS: PCP Physician Assistant Medical; Visit Provider Orthopaedic Surgery | DX: G56.03 Carpal tunnel syndrome, bilateral upper limbs (principal); E11.9 Type 2 diabetes mellitus without complications | CPT/HCPCS: 99212 ==

== ENCOUNTER 2025-06-11 12:46 | Outpatient (AMB) | payer OTHER, SELFPAY ==
--- NOTE | 2025-06-11 12:56 | A.OFFVIS_ITS ---
Intake Visit Reasons: OV-Bilat shoulder pain Intake Note: Arpan is a 54 year old right hand dominant male who presents today for a follow up of his Bilateral Shoulder Pain. He has tried and failed injections and physical therapy. He is unable to take time off of work to proceed with surgical intervention. He had cervical radiculopathy that he was sent to Spine for - Dr. Crain has determined that there is not foraminal Stenosis that would indicate bilateral arm pain. Currently patient reports that he has good and bad days with his pain, when his pain increases he takes Ibuprofen which at this point causes more stomach upset than it does relieve pain. He is interested in trying something else that may not affect his stomach. He remains on light duty and would like a letter to remain on light duty. Allergies No Known Allergies Allergy (Verified 05/27/25 11:15) HPI HPI OV-Bilat shoulder pain: Details: Arpan is a 54 year old right hand dominant male who presents today for a follow up of his Bilateral Shoulder Pain. He has tried and failed injections and physical therapy. He is unable to take time off of work to proceed with surgical intervention. He had cervical radiculopathy that he was sent to Spine for - Dr. Crain has determined that there is not foraminal Stenosis that would indicate bilateral arm pain. Currently patient reports that he has good and bad days with his pain, when his pain increases he takes Ibuprofen which at this point causes more stomach upset than it does relieve pain. He is interested in trying something else that may not affect his stomach. He remains on light duty and would like a letter to remain on light duty. HPI Comments Details: Interval History The patient is a 54-year-old male presenting with follow-up for bilateral shoulder pain management. The patient reports persistent pain in both shoulders, with the right shoulder being more painful than the left. He notes that previous injections have not provided relief. The patient has been informed that the MRI results are normal, and no identifiable problem has been found that would explain the pain. Despite this, the patient continues to experience significant discomfort. The patient has not undergone any surgical intervention yet, and surgery remains a consideration due to the lack of improvement with conservative measures. He has been advised about the potential for a lengthy recovery period post- surgery, with a minimum of three months before resuming normal activities, particularly lifting. The patient is currently considering non-surgical options, including pain management and the use of medications like Celebrex, which he plans to try for pain relief. Results - MRI of the shoulders: Normal findings, no identifiable issues noted. 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 Assessment & Plan Assessment & Plan (1) Incomplete tear of right rotator cuff: Code(s): M75.111 - Incomplete rotator cuff tear or rupture of right shoulder, not specified as traumatic Category: Medical Plan Plan 1. Bilateral Shoulder Pain The plan includes considering surgical intervention as a last resort due to the lack of improvement with conservative measures. The patient is advised to try Celebrex for pain management, which will be sent to his pharmacy. He is to remain on light duty at work to avoid exacerbating the condition. Follow-up is scheduled in three months to reassess the condition and discuss further management options. 2. Rotator Cuff Irritation The patient is informed about the possibility of surgical exploration to assess the rotator cuff and apply a collagen patch if necessary. Non-surgical management with anti-inflammatory medication is recommended as the first line of treatment. Discussion Notes The discussion focused on the persistent bilateral shoulder pain, with the right shoulder being more symptomatic. I reviewed the MRI results and there is some inflammation at the insertion of the superior cuff but no kacy tear visualized. Given his failure of conservative treatment I think it is reasonable to consider surgery. The risks and benefits of potential shoulder surgery were discussed, including the lengthy recovery period and the uncertainty of improvement given the normal MRI findings. The patient expressed understanding of the situation and is considering trying Celebrex for pain management as a non-surgical option. The patient was advised to remain on light duty at work and to follow up in three months to reassess the condition. Medications: New celecoxib (Celebrex) 200 mg PO DAILY 30 caps 2RF Coding Level of Care Code Est Pt Level 4 (29306) Diagnoses Incomplete tear of right rotator cuff M75.111
--- OUTSIDE RECORDS SUMMARY | 2025-06-11 16:38 | XMS_ITS | Clinical Summary ---
Author Organization [facility] Address [address] [place] [phone] Phone Care Team Providers Care Mechanical Engineering Specialist Name Role Phone Lasha Ramos Primary Care Provider [phone] Social History Tobacco Use Types Packs/Day Years [...] age to complete this topic Care Teams Mechanical Engineering Specialist Relationship Specialty Start Date End Date Lasha Ramos PA [address] [place] [address] PCP - General 03/29/22
== END 2025-06-11 13:31 | disposition home or self-care (01) ==
LOC: HO.HOS 12:46
PROVIDERS: PCP Physician Assistant Medical; Visit Provider Orthopaedic Surgery
DX: M75.111 Incomplete rotator cuff tear or rupture of right shoulder, not specified as traumatic (principal)
CPT/HCPCS: 99214

== ENCOUNTER → 2025-06-11 12:46 | Outpatient (BNVA) | payer OTHER, SELFPAY | PROVIDERS: PCP Physician Assistant Medical; Visit Provider Orthopaedic Surgery | DX: M25.512 Pain in left shoulder (principal); M25.511 Pain in right shoulder; M75.111 Incomplete rotator cuff tear or rupture of right shoulder, not specified as traumatic | CPT/HCPCS: 99212 ==